=== PATIENT | male | born 1970 | race African-American/Black ===

== ENCOUNTER 2017-09-22 09:54 | Inpatient (IN) | payer MEDICARE, MEDICAID ==
[~2017-09-22] VITALS: Ht 170.2 cm; Wt 62.0 kg
[2017-09-22 10:49] LABS: BASOPHILS % (AUTO) 0.8 % (0.0-2.0); EOSINOPHILS % (AUTO) 2.6 % (1.0-6.0); HEMOGLOBIN 15.5 g/dL (13.5-17.5); LYMPHOCYTES # (AUTO) 1.8 K/uL (1.0-4.8); LYMPHOCYTES % (AUTO) 36.5 % (22.0-44.0); MEAN CORPUSCULAR HEMOGLOBIN 31.8 pg (26.0-34.0); MEAN CORPUSCULAR HGB CONC 34.6 G/dL (31.0-37.0); MEAN CORPUSCULAR VOLUME 92 fL (80-100); MONOCYTES # (AUTO) 0.4 K/uL (0.1-1.0); MONOCYTES % (AUTO) 8.4 % (2.0-9.0); NEUTROPHILS # (AUTO) 2.5 K/uL (1.8-7.7); NEUTROPHILS % (AUTO) 51.7 % (40.0-70.0); PLATELET COUNT (AUTO) 283 K/uL (150-450); RED BLOOD CELL COUNT(AUTO) 4.89 MIL/uL (4.50-5.90); RED CELL DISTRIBUTION WIDTH 13.2 % (11.5-14.5)
[2017-09-22 10:58] LABS: ANION GAP 7 mmol/L (8-16); CALCIUM, TOTAL 9.6 mg/dL (8.8-10.5); CARBON DIOXIDE 27 mmol/L (22-29); CHLORIDE 104 mmol/L (98-107); CREATININE 0.94 mg/dL (0.60-1.30); GLOMERULAR FILTR. RATE CALC > 60 mL/min (>60); GLUCOSE,RANDOM 96 mg/dL (70-110); SODIUM SERUM 138 mmol/L (136-145); UREA NITROGEN, BLOOD 15 mg/dL (7-18)
[2017-09-22 11:05] LABS: ALANINE AMINOTRANSFERASE 23 U/L (12-78); ALBUMIN 4.1 g/dL (3.4-5.0); ALKALINE PHOSPHATASE 127 U/L (46-116); ASPARTATE AMINOTRANSFERASE 20 U/L (15-37); BILIRUBIN,TOTAL 0.6 mg/dL (0.1-1.0); TOTAL PROTEIN, SERUM 7.6 g/dL (6.4-8.2)
[2017-09-22] MEDS ORDERED: DiphenhydrAMINE HCL 50 MG/ML VIAL IM ONE (11:15)
[2017-09-22] MEDS ORDERED: LORazepam 2 MG TABLET PO ONE (11:15)
[2017-09-22] MEDS ORDERED: HALOPERIDOL LACTATE 5 MG/ML VIAL IM ONE (11:15)
[2017-09-22] MEDS ORDERED: LORazepam 2 MG/ML VIAL IM ONE (11:15)
[2017-09-22] MEDS ORDERED: HALOPERIDOL 5 MG TABLET PO ONE (11:15)
[2017-09-22] MEDS ORDERED: DiphenhydrAMINE HCL 50 MG CAPSULE PO ONE (11:15)
[2017-09-22] MEDS ORDERED: ACETAMINOPHEN 325 MG TABLET PO PRN ×2 (13:30→21:00)
[2017-09-22] MEDS ORDERED: HALOPERIDOL 5 MG TABLET PO PRN (13:30)
[2017-09-22] MEDS ORDERED: LORazepam 2 MG TABLET PO PRN (13:30)
[2017-09-22] MEDS ORDERED: IBUPROFEN 400 MG TABLET PO PRN ×2 (13:30→21:00)
[2017-09-22] MEDS ORDERED: ZOLPIDEM TARTRATE 10 MG TABLET PO PRN (13:30)
[2017-09-22 15:28] LABS: AMPHET/METH SCREEN,URINE POSITIVE (NEGATIVE); BARBITURATE SCREEN, URINE NEGATIVE (NEGATIVE); BENZODIAZEPINES SCREEN,URINE NEGATIVE (NEGATIVE); CANNABINOID SCREEN,URINE POSITIVE (NEGATIVE); COCAINE SCREEN,URINE NEGATIVE (NEGATIVE); METHADONE SCREEN, URINE NEGATIVE (NEGATIVE); OPIATE SCREEN,URINE NEGATIVE (NEGATIVE)
[2017-09-22 15:32] LABS: PHENCYCLIDINE SCREEN,URINE NEGATIVE (NEGATIVE)
[2017-09-22 19:48] VITALS: BP 128/78
[2017-09-22 19:55] VITALS: BP 128/78
[2017-09-22] MEDS ORDERED: CloNIDine HCL 0.1 MG TABLET PO PRN (21:00)
[2017-09-22] MEDS ORDERED: MAGNESIUM HYDROXIDE SUSPENSION 30 ML UDCUP PO PRN (21:00)
[2017-09-22] MEDS ORDERED: ALBUTEROL SULFATE HFA 90 MCG/PUFF 8 GM INHALER IH PRN (21:00)
[2017-09-22] MEDS ORDERED: DOCUSATE SODIUM 100 MG CAPSULE PO PRN (21:00)
[2017-09-22] MEDS ORDERED: MAG HYDROX/AL HYDROX/SIMETH ES 30 ML SUSPENSION UDCUP PO PRN (21:00)
[2017-09-22] MEDS ORDERED: PETROLATUM,WHITE 71 GM JELLY TP PRN (21:00)
[2017-09-22] MEDS ORDERED: LOPERAMIDE HCL 2 MG CAPSULE PO PRN (21:00)
[2017-09-22] MEDS ORDERED: ONDANSETRON HCL 4 MG TABLET PO PRN (21:00)
[2017-09-23 07:19] LABS: HEMOGLOBIN A1C 5.6 % (4.5-6.2)
[2017-09-23 07:28] LABS: BASOPHILS % (AUTO) 1.5 % (0.0-2.0); EOSINOPHILS % (AUTO) 3.6 % (1.0-6.0); HEMATOCRIT 43.1 % (41-53); HEMOGLOBIN 15.1 g/dL (13.5-17.5); LYMPHOCYTES # (AUTO) 1.7 K/uL (1.0-4.8); LYMPHOCYTES % (AUTO) 37.2 % (22.0-44.0); MEAN CORPUSCULAR VOLUME 92 fL (80-100); MONOCYTES # (AUTO) 0.5 K/uL (0.1-1.0); MONOCYTES % (AUTO) 10.4 % (2.0-9.0); NEUTROPHILS # (AUTO) 2.2 K/uL (1.8-7.7); NEUTROPHILS % (AUTO) 47.3 % (40.0-70.0); PLATELET COUNT (AUTO) 241 K/uL (150-450); RED BLOOD CELL COUNT(AUTO) 4.71 MIL/uL (4.50-5.90)
[2017-09-23 08:13] LABS: ALANINE AMINOTRANSFERASE 22 U/L (12-78); ALBUMIN 3.6 g/dL (3.4-5.0); ALKALINE PHOSPHATASE 111 U/L (46-116); ANION GAP 4 mmol/L (8-16); ASPARTATE AMINOTRANSFERASE 16 U/L (15-37); BILIRUBIN,TOTAL 0.3 mg/dL (0.1-1.0); CALCIUM, TOTAL 9.4 mg/dL (8.8-10.5); CARBON DIOXIDE 29 mmol/L (22-29); CHLORIDE 102 mmol/L (98-107); CHOL/HDL RATIO 3.2 (4.2-7.3); CHOLESTEROL 178 mg/dL (131-200); CREATININE 0.98 mg/dL (0.60-1.30); GLOMERULAR FILTR. RATE CALC > 60 mL/min (>60); GLUCOSE,RANDOM 95 mg/dL (70-110); HDL CHOLESTEROL 55 mg/dL (40-60); LDL CHOL (CALC.) 110 mg/dL (0-130); POTASSIUM 4.6 mmol/L (3.5-5.1); SODIUM SERUM 135 mmol/L (136-145); TOTAL PROTEIN, SERUM 6.9 g/dL (6.4-8.2); TRIGLYCERIDES 66 mg/dL (15-150); UREA NITROGEN, BLOOD 17 mg/dL (7-18)
[2017-09-23 08:15] VITALS: BP 136/73
[2017-09-23] MEDS: NICOTINE 14 MG/24 HOUR PATCH TD SCH (09:00)
[2017-09-23 16:00] VITALS: BP 139/89
[2017-09-23] MEDS: LORazepam 2 MG TABLET PO PRN ×2 (16:43→21:13)
[2017-09-23] MEDS: HALOPERIDOL 5 MG TABLET PO PRN ×2 (16:43→21:13)
[2017-09-23] MEDS: OLANZapine 5 MG TABLET PO SCH (21:10)
[2017-09-23] MEDS: ZOLPIDEM TARTRATE 10 MG TABLET PO PRN (22:47)
[2017-09-24 02:38] VITALS: BP 128/78
[2017-09-24 08:24] VITALS: BP 116/86
[2017-09-24] MEDS: NICOTINE 14 MG/24 HOUR PATCH TD SCH (08:31)
[2017-09-24] MEDS: OLANZapine 5 MG TABLET PO SCH ×2 (08:31→20:11)
[2017-09-24] MEDS: LORazepam 2 MG TABLET PO PRN ×2 (08:31→15:05)
[2017-09-24] MEDS ORDERED: BENZ1TAB10 PO (13:02)
[2017-09-24] MEDS ORDERED: QUET100T PO (13:02)
[2017-09-24] MEDS ORDERED: LURA40 PO (13:02)
[2017-09-24] MEDS ORDERED: HALO10 PO (13:02)
[2017-09-24] MEDS ORDERED: METF500T6 PO (13:02)
[2017-09-24] MEDS ORDERED: QUET25TA PO (13:02)
[2017-09-24] MEDS ORDERED: PRAV40TA4 PO (13:02)
[2017-09-24] MEDS ORDERED: DIVA-78 PO (13:02)
[2017-09-24] MEDS ORDERED: FOLI1 PO (13:02)
[2017-09-24] MEDS ORDERED: LISI-662 PO (13:02)
[2017-09-24] MEDS ORDERED: DIPH25 PO (13:02)
[2017-09-24] MEDS: HALOPERIDOL 5 MG TABLET PO PRN (15:05)
[2017-09-24 16:00] VITALS: BP 135/83
[2017-09-25] MEDS: HALOPERIDOL 5 MG TABLET PO PRN ×4 (07:35→17:44)
[2017-09-25] MEDS: OLANZapine 5 MG TABLET PO SCH ×2 (07:35→20:06)
[2017-09-25] MEDS: LORazepam 2 MG TABLET PO PRN ×4 (07:35→17:44)
[2017-09-25] MEDS: NICOTINE 14 MG/24 HOUR PATCH TD SCH (07:37)
[2017-09-25 08:00] VITALS: BP 117/78
[2017-09-25] MEDS ORDERED: ARIP15TA2 PO (10:43)
[2017-09-25] MEDS: ARIPiprazole 15 MG TABLET PO SCH (11:24)
[2017-09-25] MEDS: DiphenhydrAMINE HCL 25 MG CAPSULE PO SCH ×2 (11:27→16:36)
[2017-09-25] MEDS: DIVALPROEX SODIUM 500 MG DR TABLET PO SCH ×2 (11:27→16:36)
[2017-09-25] MEDS: FOLIC ACID 1 MG TABLET PO SCH ×2 (11:27→16:36)
[2017-09-25] MEDS: BENZTROPINE MESYLATE 1 MG TABLET PO SCH (11:28)
[2017-09-25 16:00] VITALS: BP 107/77
[2017-09-25] MEDS: PRAVASTATIN SODIUM 40 MG TABLET PO SCH (20:06)
[2017-09-26] MEDS: HALOPERIDOL 5 MG TABLET PO PRN (04:27)
[2017-09-26] MEDS: LORazepam 2 MG TABLET PO PRN (04:27)
[2017-09-26] MEDS: ARIPiprazole 15 MG TABLET PO SCH (07:50)
[2017-09-26] MEDS: FOLIC ACID 1 MG TABLET PO SCH ×2 (07:50→16:36)
[2017-09-26] MEDS: BENZTROPINE MESYLATE 1 MG TABLET PO SCH (07:50)
[2017-09-26] MEDS: OLANZapine 5 MG TABLET PO SCH ×2 (07:50→20:14)
[2017-09-26] MEDS: DiphenhydrAMINE HCL 25 MG CAPSULE PO SCH ×2 (07:50→16:36)
[2017-09-26] MEDS: DIVALPROEX SODIUM 500 MG DR TABLET PO SCH ×2 (07:50→16:37)
[2017-09-26 08:43] VITALS: BP 128/96
[2017-09-26] MEDS: NICOTINE 14 MG/24 HOUR PATCH TD SCH (09:00)
[2017-09-26 17:02] VITALS: BP 107/82
[2017-09-26] MEDS: PRAVASTATIN SODIUM 40 MG TABLET PO SCH (21:57)
[2017-09-27] MEDS: ZOLPIDEM TARTRATE 10 MG TABLET PO PRN ×2 (01:50→20:09)
[2017-09-27] MEDS: LORazepam 2 MG TABLET PO PRN ×2 (01:50→15:59)
[2017-09-27 01:51] VITALS: BP 120/79
[2017-09-27 07:14] LABS: ANION GAP 7 mmol/L (8-16); CALCIUM, TOTAL 9.1 mg/dL (8.8-10.5); CARBON DIOXIDE 30 mmol/L (22-29); CHLORIDE 102 mmol/L (98-107); CREATININE 0.84 mg/dL (0.60-1.30); GLOMERULAR FILTR. RATE CALC > 60 mL/min (>60); GLUCOSE,RANDOM 83 mg/dL (70-110); POTASSIUM 4.4 mmol/L (3.5-5.1); SODIUM SERUM 139 mmol/L (136-145); UREA NITROGEN, BLOOD 16 mg/dL (7-18)
[2017-09-27 08:00] VITALS: BP 126/80
[2017-09-27] MEDS: NICOTINE 14 MG/24 HOUR PATCH TD SCH (09:00)
[2017-09-27] MEDS: OLANZapine 5 MG TABLET PO SCH ×2 (09:03→20:09)
[2017-09-27] MEDS: FOLIC ACID 1 MG TABLET PO SCH ×2 (09:03→16:09)
[2017-09-27] MEDS: BENZTROPINE MESYLATE 1 MG TABLET PO SCH (09:03)
[2017-09-27] MEDS: DiphenhydrAMINE HCL 25 MG CAPSULE PO SCH ×2 (09:03→16:09)
[2017-09-27] MEDS: DIVALPROEX SODIUM 500 MG DR TABLET PO SCH ×2 (09:03→16:09)
[2017-09-27] MEDS: ARIPiprazole 15 MG TABLET PO SCH (09:03)
[2017-09-27 16:00] VITALS: BP 123/86
[2017-09-27] MEDS: PRAVASTATIN SODIUM 40 MG TABLET PO SCH (20:10)
[2017-09-28 00:05] VITALS: BP 113/76
[2017-09-28 08:30] VITALS: BP 140/93
[2017-09-28] MEDS: ARIPiprazole 15 MG TABLET PO SCH (08:38)
[2017-09-28] MEDS: BENZTROPINE MESYLATE 1 MG TABLET PO SCH (08:39)
[2017-09-28] MEDS: DiphenhydrAMINE HCL 25 MG CAPSULE PO SCH ×2 (08:39→16:21)
[2017-09-28] MEDS: FOLIC ACID 1 MG TABLET PO SCH ×2 (08:39→16:21)
[2017-09-28] MEDS: OLANZapine 5 MG TABLET PO SCH ×2 (08:39→20:20)
[2017-09-28] MEDS: DIVALPROEX SODIUM 500 MG DR TABLET PO SCH ×2 (08:39→16:21)
[2017-09-28] MEDS: NICOTINE 14 MG/24 HOUR PATCH TD SCH (08:40)
[2017-09-28] MEDS: HALOPERIDOL 5 MG TABLET PO PRN (08:42)
[2017-09-28] MEDS: LORazepam 2 MG TABLET PO PRN ×2 (08:42→17:14)
[2017-09-28 19:35] VITALS: BP 138/89
[2017-09-28] MEDS: PRAVASTATIN SODIUM 40 MG TABLET PO SCH (20:20)
[2017-09-29 06:25] VITALS: BP 129/83
[2017-09-29] MEDS ORDERED: NICOTINE 14 MG/24 HOUR PATCH TD PRN (07:45)
[2017-09-29] MEDS: ARIPiprazole 15 MG TABLET PO SCH (08:43)
[2017-09-29] MEDS: OLANZapine 5 MG TABLET PO SCH ×2 (08:43→20:45)
[2017-09-29] MEDS: BENZTROPINE MESYLATE 1 MG TABLET PO SCH (08:43)
[2017-09-29] MEDS: DiphenhydrAMINE HCL 25 MG CAPSULE PO SCH ×2 (08:43→16:42)
[2017-09-29] MEDS: FOLIC ACID 1 MG TABLET PO SCH ×2 (08:43→16:42)
[2017-09-29] MEDS: DIVALPROEX SODIUM 500 MG DR TABLET PO SCH ×2 (08:43→16:42)
[2017-09-29 08:59] VITALS: BP 133/86
[2017-09-29] MEDS: LORazepam 2 MG TABLET PO PRN (18:04)
[2017-09-29] MEDS: PRAVASTATIN SODIUM 40 MG TABLET PO SCH (20:45)
[2017-09-29] MEDS: ZOLPIDEM TARTRATE 10 MG TABLET PO PRN (20:45)
[2017-09-30] MEDS: ARIPiprazole 15 MG TABLET PO SCH (08:08)
[2017-09-30] MEDS: BENZTROPINE MESYLATE 1 MG TABLET PO SCH (08:08)
[2017-09-30] MEDS: LORazepam 2 MG TABLET PO PRN (08:08)
[2017-09-30] MEDS: OLANZapine 5 MG TABLET PO SCH (08:08)
[2017-09-30] MEDS: DiphenhydrAMINE HCL 25 MG CAPSULE PO SCH (08:08)
[2017-09-30] MEDS: FOLIC ACID 1 MG TABLET PO SCH (08:08)
[2017-09-30] MEDS: DIVALPROEX SODIUM 500 MG DR TABLET PO SCH (08:08)
[2017-09-30 08:22] VITALS: BP 102/81
[2017-09-30] MEDS ORDERED: OLAN5TAB2 PO (11:08)
== END 2017-09-30 13:15 | disposition home or self-care (01) | DRG 885 ==
LOC: EMS 09:57 → 3EC 17:35 → 3EI 09-28 20:00 → 3EC 09-29 17:16
PROVIDERS: ADMIT Psychiatry & Neurology Child & Adolescent Psychiatry; ATTEND Psychiatry & Neurology Child & Adolescent Psychiatry
DX: F20.0 Paranoid schizophrenia (principal); E87.1 Hypo-osmolality and hyponatremia; F17.210 Nicotine dependence, cigarettes, uncomplicated; F10.10 Alcohol abuse, uncomplicated; E78.5 Hyperlipidemia, unspecified; E11.9 Type 2 diabetes mellitus without complications; F19.10 Other psychoactive substance abuse, uncomplicated; F15.90 Other stimulant use, unspecified, uncomplicated; F12.90 Cannabis use, unspecified, uncomplicated; Z71.41 Alcohol abuse counseling and surveillance of alcoholic; Z71.6 Tobacco abuse counseling; Z71.51 Drug abuse counseling and surveillance of drug abuser
CPT/HCPCS: 83036; 84443; 99285; G0480; J1200; J1630; J2060

== ENCOUNTER 2018-01-21 13:46 | Inpatient (IN) | payer MEDICARE ==
[~2018-01-21] VITALS: Ht 165.1 cm; Wt 64.4 kg
[~2018-01-21 13:46] MED LIST: ARIP15TA2 PO; BENZ1TAB10 PO; DIPH25 PO; DIVA-78 PO; FOLI1 PO; OLAN5TAB2 PO; PRAV40TA4 PO
[2018-01-21 17:39] LABS: GLUCOMETER DEV NAME(LOC) BV2N3; GLUCOSE,POINT OF CARE 128 MG/DL (70-110)
[2018-01-21 17:45] VITALS: BP 119/72
[2018-01-21] MEDS ORDERED: ZOLPIDEM TARTRATE 10 MG TABLET PO PRN (17:45)
[2018-01-21] MEDS ORDERED: IBUPROFEN 400 MG TABLET PO PRN (19:15)
[2018-01-21] MEDS ORDERED: DOCUSATE SODIUM 100 MG CAPSULE PO PRN (19:15)
[2018-01-21] MEDS ORDERED: ONDANSETRON HCL 4 MG TABLET PO PRN (19:15)
[2018-01-21] MEDS ORDERED: MAGNESIUM HYDROXIDE SUSPENSION 30 ML UDCUP PO PRN (19:15)
[2018-01-21] MEDS ORDERED: MAG HYDROX/AL HYDROX/SIMETH ES 30 ML SUSPENSION UDCUP PO PRN (19:15)
[2018-01-21] MEDS ORDERED: ACETAMINOPHEN 325 MG TABLET PO PRN (19:15)
[2018-01-21] MEDS ORDERED: NICOTINE 14 MG/24 HOUR PATCH TD PRN (19:15)
[2018-01-21] MEDS ORDERED: ALBUTEROL SULFATE HFA 90 MCG/PUFF 8 GM INHALER IH PRN (19:15)
[2018-01-21] MEDS ORDERED: LOPERAMIDE HCL 2 MG CAPSULE PO PRN (19:15)
[2018-01-21] MEDS ORDERED: CloNIDine HCL 0.1 MG TABLET PO PRN (19:15)
[2018-01-21] MEDS ORDERED: GuaiFENesin/D-METHORPHAN [SUGAR-FREE] 200-20MG/10 ML SYRUP UDCUP PO PRN (19:15)
[2018-01-21] MEDS ORDERED: PETROLATUM,WHITE 71 GM JELLY TP PRN (19:15)
[2018-01-22 01:18] VITALS: BP 110/92
[2018-01-22 08:34] LABS: BASOPHILS % (AUTO) 1.2 % (0.0-2.0); EOSINOPHILS % (AUTO) 4.4 % (1.0-6.0); HEMATOCRIT 45.6 % (41-53); HEMOGLOBIN 15.4 g/dL (13.5-17.5); LYMPHOCYTES # (AUTO) 1.8 K/uL (1.0-4.8); LYMPHOCYTES % (AUTO) 33.1 % (22.0-44.0); MEAN CORPUSCULAR HEMOGLOBIN 32.1 pg (26.0-34.0); MEAN CORPUSCULAR HGB CONC 33.7 G/dL (31.0-37.0); MEAN CORPUSCULAR VOLUME 95 fL (80-100); MONOCYTES # (AUTO) 0.6 K/uL (0.1-1.0); MONOCYTES % (AUTO) 11.9 % (2.0-9.0); NEUTROPHILS # (AUTO) 2.6 K/uL (1.8-7.7); NEUTROPHILS % (AUTO) 49.4 % (40.0-70.0); PLATELET COUNT (AUTO) 307 K/uL (150-450); RED CELL DISTRIBUTION WIDTH 12.9 % (11.5-14.5)
[2018-01-22 09:02] LABS: ALANINE AMINOTRANSFERASE 47 U/L (12-78); ALBUMIN 3.7 g/dL (3.4-5.0); ALKALINE PHOSPHATASE 108 U/L (46-116); ANION GAP 4 mmol/L (8-16); ASPARTATE AMINOTRANSFERASE 21 U/L (15-37); BILIRUBIN,TOTAL 0.3 mg/dL (0.1-1.0); CALCIUM, TOTAL 8.6 mg/dL (8.8-10.5); CARBON DIOXIDE 34 mmol/L (22-29); CHLORIDE 103 mmol/L (98-107); CHOL/HDL RATIO 2.4 (4.2-7.3); CHOLESTEROL 135 mg/dL (131-200); FREE T4 (FREE THYROXINE) 0.76 ng/dL (0.76-1.46); GLOMERULAR FILTR. RATE CALC > 60 mL/min (>60); GLUCOSE,RANDOM 67 mg/dL (70-110); HDL CHOLESTEROL 56 mg/dL (40-60); LDL CHOL (CALC.) 61 mg/dL (0-130); POTASSIUM 4.5 mmol/L (3.5-5.1); SODIUM SERUM 141 mmol/L (136-145); THYROID STIMULATING HORMONE 0.59 uIU/mL (0.36-3.74); TOTAL PROTEIN, SERUM 6.8 g/dL (6.4-8.2); TRIGLYCERIDES 90 mg/dL (15-150); UREA NITROGEN, BLOOD 14 mg/dL (7-18)
[2018-01-22 10:09] VITALS: BP 131/80
[2018-01-22] MEDS: OLANZapine 5 MG TABLET PO SCH ×2 (12:00→21:00)
[2018-01-22] MEDS: BENZTROPINE MESYLATE 1 MG TABLET PO SCH ×2 (12:00→21:00)
[2018-01-22] MEDS: DIVALPROEX SODIUM 500 MG DR TABLET PO SCH ×2 (12:00→21:01)
[2018-01-22 16:34] VITALS: BP 124/76
[2018-01-23 00:30] VITALS: BP 102/62
[2018-01-23 08:39] VITALS: BP 127/86
[2018-01-23] MEDS: DIVALPROEX SODIUM 500 MG DR TABLET PO SCH ×2 (08:43→20:31)
[2018-01-23] MEDS: BENZTROPINE MESYLATE 1 MG TABLET PO SCH ×2 (08:43→20:31)
[2018-01-23] MEDS: OLANZapine 5 MG TABLET PO SCH ×2 (08:43→20:31)
[2018-01-23] MEDS: LORazepam 2 MG TABLET PO PRN (11:48)
[2018-01-23] MEDS: HALOPERIDOL 5 MG TABLET PO PRN (12:44)
[2018-01-23 16:00] VITALS: BP 138/78
[2018-01-24 05:27] VITALS: BP 130/80
[2018-01-24] MEDS: HALOPERIDOL 5 MG TABLET PO PRN (06:08)
[2018-01-24 08:46] VITALS: BP 109/69
[2018-01-24] MEDS: OLANZapine 5 MG TABLET PO SCH ×2 (09:41→20:42)
[2018-01-24] MEDS: BENZTROPINE MESYLATE 1 MG TABLET PO SCH ×2 (09:41→20:42)
[2018-01-24] MEDS: DIVALPROEX SODIUM 500 MG DR TABLET PO SCH ×2 (09:41→20:42)
[2018-01-24] MEDS: LORazepam 2 MG TABLET PO PRN (14:42)
[2018-01-24 16:23] VITALS: BP 113/74
[2018-01-25] VITALS: BP 107/66
[2018-01-25 08:22] VITALS: BP 112/68
[2018-01-25] MEDS: OLANZapine 5 MG TABLET PO SCH ×2 (08:28→20:16)
[2018-01-25] MEDS: DIVALPROEX SODIUM 500 MG DR TABLET PO SCH ×2 (08:28→20:16)
[2018-01-25] MEDS: LORazepam 2 MG TABLET PO PRN ×2 (08:28→20:46)
[2018-01-25] MEDS: BENZTROPINE MESYLATE 1 MG TABLET PO SCH ×2 (08:28→20:15)
[2018-01-25 16:12] VITALS: BP 122/76
[2018-01-26 01:24] VITALS: BP 114/86
[2018-01-26] MEDS: OLANZapine 5 MG TABLET PO SCH ×2 (08:23→21:00)
[2018-01-26] MEDS: BENZTROPINE MESYLATE 1 MG TABLET PO SCH ×2 (08:24→20:59)
[2018-01-26] MEDS: DIVALPROEX SODIUM 500 MG DR TABLET PO SCH ×2 (08:24→20:59)
[2018-01-26 08:40] VITALS: BP 105/75
[2018-01-26 17:11] VITALS: BP 125/90
[2018-01-27 01:16] VITALS: BP 121/68
[2018-01-27] MEDS: LORazepam 2 MG TABLET PO PRN (04:58)
[2018-01-27] MEDS: HALOPERIDOL 5 MG TABLET PO PRN (04:58)
[2018-01-27] MEDS: DIVALPROEX SODIUM 500 MG DR TABLET PO SCH (09:33)
[2018-01-27] MEDS: OLANZapine 5 MG TABLET PO SCH (09:33)
[2018-01-27] MEDS: BENZTROPINE MESYLATE 1 MG TABLET PO SCH (09:33)
[2018-01-27 09:59] VITALS: BP 107/74
[2018-01-27 16:05] VITALS: BP 119/75
== END 2018-01-27 17:15 | disposition home or self-care (01) | DRG 885 ==
LOC: B2X 16:00
DX: F25.1 Schizoaffective disorder, depressive type (principal); E11.9 Type 2 diabetes mellitus without complications; E78.00 Pure hypercholesterolemia, unspecified; E78.5 Hyperlipidemia, unspecified; F10.10 Alcohol abuse, uncomplicated; F12.10 Cannabis abuse, uncomplicated; F15.10 Other stimulant abuse, uncomplicated; F17.200 Nicotine dependence, unspecified, uncomplicated; F41.9 Anxiety disorder, unspecified; G47.00 Insomnia, unspecified; I10 Essential (primary) hypertension; Z79.899 Other long term (current) drug therapy; Z91.5 Personal history of self-harm; Z71.51 Drug abuse counseling and surveillance of drug abuser; Z71.41 Alcohol abuse counseling and surveillance of alcoholic; Z71.6 Tobacco abuse counseling
CPT/HCPCS: 83036; 84439; 84443

== ENCOUNTER 2018-03-02 16:04 | Inpatient (IN) | payer MEDICARE ==
[~2018-03-02] VITALS: Ht 170.2 cm; Wt 69.6 kg
[~2018-03-02 16:04] MED LIST changes: -ARIP15TA2 PO; -DIPH25 PO; -FOLI1 PO; -PRAV40TA4 PO
[2018-03-02] MEDS ORDERED: ZOLPIDEM TARTRATE 10 MG TABLET PO PRN (16:45)
[2018-03-02] MEDS ORDERED: HALOPERIDOL 5 MG TABLET PO PRN (16:45)
[2018-03-02 17:04] VITALS: BP 116/75
[2018-03-02 17:58] VITALS: BP 120/72
[2018-03-02 18:29] LABS: GLUCOMETER DEV NAME(LOC) BV2S.; GLUCOSE,POINT OF CARE 112 MG/DL (70-110)
[2018-03-02] MEDS ORDERED: GLUCAGON,HUMAN RECOMBINANT 1 MG VIAL IM PRN (18:45)
[2018-03-02] MEDS ORDERED: MAG HYDROX/AL HYDROX/SIMETH ES 30 ML SUSPENSION UDCUP PO PRN (22:15)
[2018-03-02] MEDS ORDERED: PETROLATUM,WHITE 71 GM JELLY TP PRN (22:15)
[2018-03-02] MEDS ORDERED: MAGNESIUM HYDROXIDE SUSPENSION 30 ML UDCUP PO PRN (22:15)
[2018-03-02] MEDS ORDERED: CloNIDine HCL 0.1 MG TABLET PO PRN (22:15)
[2018-03-02] MEDS ORDERED: ALBUTEROL SULFATE HFA 90 MCG/PUFF 8 GM INHALER IH PRN (22:15)
[2018-03-02] MEDS ORDERED: BENZOCAINE/MENTHOL LOZENGE MM PRN (22:15)
[2018-03-02] MEDS ORDERED: BACITRACIN 28.4 GM OINTMENT TP PRN (22:15)
[2018-03-02] MEDS ORDERED: ACETAMINOPHEN 325 MG TABLET PO PRN (22:15)
[2018-03-02] MEDS ORDERED: IBUPROFEN 600 MG TABLET PO PRN (22:15)
[2018-03-02] MEDS ORDERED: LOPERAMIDE HCL 2 MG CAPSULE PO PRN (22:15)
[2018-03-02] MEDS ORDERED: ONDANSETRON HCL 4 MG TABLET PO PRN (22:15)
[2018-03-03 03:36] VITALS: BP 122/79
[2018-03-03 06:29] LABS: GLUCOMETER DEV NAME(LOC) BV2S.; GLUCOSE,POINT OF CARE 83 MG/DL (70-110)
[2018-03-03 08:25] VITALS: BP 103/61
[2018-03-03 08:30] LABS: BASOPHILS % (AUTO) 0.8 % (0.0-2.0); EOSINOPHILS % (AUTO) 3.5 % (1.0-6.0); HEMOGLOBIN 14.7 g/dL (13.5-17.5); LYMPHOCYTES # (AUTO) 1.9 K/uL (1.0-4.8); LYMPHOCYTES % (AUTO) 33.9 % (22.0-44.0); MEAN CORPUSCULAR HEMOGLOBIN 32.3 pg (26.0-34.0); MEAN CORPUSCULAR HGB CONC 34.2 G/dL (31.0-37.0); MEAN CORPUSCULAR VOLUME 94 fL (80-100); MONOCYTES # (AUTO) 0.7 K/uL (0.1-1.0); MONOCYTES % (AUTO) 12.1 % (2.0-9.0); NEUTROPHILS # (AUTO) 2.8 K/uL (1.8-7.7); NEUTROPHILS % (AUTO) 49.7 % (40.0-70.0); PLATELET COUNT (AUTO) 281 K/uL (150-450); RED BLOOD CELL COUNT(AUTO) 4.55 MIL/uL (4.50-5.90); RED CELL DISTRIBUTION WIDTH 13.9 % (11.5-14.5)
[2018-03-03 08:37] LABS: HEMOGLOBIN A1C 6.1 % (4.5-6.2)
[2018-03-03] MEDS: OMEPRAZOLE 20 MG CAPSULE PO SCH (08:44)
[2018-03-03] MEDS: DOCUSATE SODIUM 100 MG CAPSULE PO SCH (08:44)
[2018-03-03 09:01] LABS: ALANINE AMINOTRANSFERASE 48 U/L (12-78); ALBUMIN 3.5 g/dL (3.4-5.0); ALKALINE PHOSPHATASE 103 U/L (46-116); ANION GAP 4 mmol/L (8-16); ASPARTATE AMINOTRANSFERASE 20 U/L (15-37); BILIRUBIN,TOTAL 0.2 mg/dL (0.1-1.0); CALCIUM, TOTAL 9.2 mg/dL (8.8-10.5); CARBON DIOXIDE 32 mmol/L (22-29); CHLORIDE 105 mmol/L (98-107); CHOL/HDL RATIO 3.5 (4.2-7.3); CHOLESTEROL 207 mg/dL (131-200); CREATININE 0.76 mg/dL (0.60-1.30); FREE T4 (FREE THYROXINE) 0.69 ng/dL (0.76-1.46); GLOMERULAR FILTR. RATE CALC > 60 mL/min (>60); GLUCOSE,RANDOM 86 mg/dL (70-110); HDL CHOLESTEROL 60 mg/dL (40-60); LDL CHOL (CALC.) 136 mg/dL (0-130); POTASSIUM 4.7 mmol/L (3.5-5.1); SODIUM SERUM 141 mmol/L (136-145); THYROID STIMULATING HORMONE 0.95 uIU/mL (0.36-3.74); TOTAL PROTEIN, SERUM 6.3 g/dL (6.4-8.2); TRIGLYCERIDES 53 mg/dL (15-150); UREA NITROGEN, BLOOD 12 mg/dL (7-18)
[2018-03-03 13:05] LABS: GLUCOMETER DEV NAME(LOC) BV2S.; GLUCOSE,POINT OF CARE 87 MG/DL (70-110)
[2018-03-03 16:00] VITALS: BP 119/71
[2018-03-03 16:54] LABS: GLUCOMETER DEV NAME(LOC) BV2S.; GLUCOSE,POINT OF CARE 86 MG/DL (70-110)
[2018-03-03] MEDS: DIVALPROEX SODIUM 500 MG DR TABLET PO SCH (20:47)
[2018-03-03] MEDS: OLANZapine 7.5 MG TABLET PO SCH (20:47)
[2018-03-03 21:10] LABS: GLUCOMETER DEV NAME(LOC) BV2S.; GLUCOSE,POINT OF CARE 119 MG/DL (70-110)
[2018-03-04 01:02] VITALS: BP 111/70
[2018-03-04 06:49] LABS: GLUCOMETER DEV NAME(LOC) BV2S.; GLUCOSE,POINT OF CARE 82 MG/DL (70-110)
[2018-03-04 08:13] VITALS: BP 115/65
[2018-03-04] MEDS: OMEPRAZOLE 20 MG CAPSULE PO SCH (08:22)
[2018-03-04] MEDS: DIVALPROEX SODIUM 500 MG DR TABLET PO SCH ×2 (08:22→20:36)
[2018-03-04] MEDS: OLANZapine 7.5 MG TABLET PO SCH ×2 (08:22→20:37)
[2018-03-04] MEDS: DOCUSATE SODIUM 100 MG CAPSULE PO SCH (08:22)
[2018-03-04 11:09] LABS: GLUCOMETER DEV NAME(LOC) BV2S.; GLUCOSE,POINT OF CARE 82 MG/DL (70-110)
[2018-03-04 16:06] VITALS: BP 113/74
[2018-03-04 16:40] LABS: GLUCOMETER DEV NAME(LOC) BV2S.; GLUCOSE,POINT OF CARE 140 MG/DL (70-110)
[2018-03-04 20:55] LABS: GLUCOMETER DEV NAME(LOC) BV2S.; GLUCOSE,POINT OF CARE 87 MG/DL (70-110)
[2018-03-05 00:25] VITALS: BP 120/68
[2018-03-05 08:20] VITALS: BP 101/61
[2018-03-05] MEDS: OLANZapine 7.5 MG TABLET PO SCH ×2 (08:25→20:30)
[2018-03-05] MEDS: OMEPRAZOLE 20 MG CAPSULE PO SCH (08:25)
[2018-03-05] MEDS: DIVALPROEX SODIUM 500 MG DR TABLET PO SCH ×2 (08:25→20:30)
[2018-03-05] MEDS: DOCUSATE SODIUM 100 MG CAPSULE PO SCH (08:25)
[2018-03-05 16:07] VITALS: BP 118/62
[2018-03-05 16:44] LABS: GLUCOMETER DEV NAME(LOC) BV2S.; GLUCOSE,POINT OF CARE 110 MG/DL (70-110)
[2018-03-05] MEDS: LORazepam 2 MG TABLET PO PRN (16:46)
[2018-03-05] MEDS: INSULIN LISPRO 100 UNITS/ML SQ PRN (20:37)
[2018-03-05 20:53] LABS: GLUCOMETER DEV NAME(LOC) BV2S.; GLUCOSE,POINT OF CARE 148 MG/DL (70-110)
[2018-03-06 05:09] VITALS: BP 114/60
[2018-03-06 06:54] LABS: GLUCOMETER DEV NAME(LOC) BV2S.; GLUCOSE,POINT OF CARE 85 MG/DL (70-110)
[2018-03-06 08:06] VITALS: BP 139/84
[2018-03-06] MEDS: OLANZapine 7.5 MG TABLET PO SCH ×2 (08:45→20:34)
[2018-03-06] MEDS: DIVALPROEX SODIUM 500 MG DR TABLET PO SCH ×2 (08:45→20:34)
[2018-03-06] MEDS: DOCUSATE SODIUM 100 MG CAPSULE PO SCH (08:45)
[2018-03-06] MEDS: OMEPRAZOLE 20 MG CAPSULE PO SCH (08:45)
[2018-03-06] MEDS: INSULIN LISPRO 100 UNITS/ML SQ PRN ×2 (11:02→16:39)
[2018-03-06 11:44] LABS: GLUCOMETER DEV NAME(LOC) BV2S.; GLUCOSE,POINT OF CARE 141 MG/DL (70-110)
[2018-03-06 16:00] VITALS: BP 125/80
[2018-03-06 16:14] LABS: GLUCOMETER DEV NAME(LOC) BV2S.; GLUCOSE,POINT OF CARE 176 MG/DL (70-110)
[2018-03-06 20:23] LABS: GLUCOMETER DEV NAME(LOC) BV2S.; GLUCOSE,POINT OF CARE 138 MG/DL (70-110)
[2018-03-07 05:42] VITALS: BP 121/68
[2018-03-07 06:24] LABS: GLUCOMETER DEV NAME(LOC) BV2S.; GLUCOSE,POINT OF CARE 86 MG/DL (70-110)
[2018-03-07] MEDS: OLANZapine 7.5 MG TABLET PO SCH ×2 (08:11→20:31)
[2018-03-07] MEDS: DIVALPROEX SODIUM 500 MG DR TABLET PO SCH ×2 (08:11→20:31)
[2018-03-07] MEDS: DOCUSATE SODIUM 100 MG CAPSULE PO SCH (08:11)
[2018-03-07] MEDS: OMEPRAZOLE 20 MG CAPSULE PO SCH (08:11)
[2018-03-07 08:24] VITALS: BP 115/66
[2018-03-07] MEDS: LORazepam 2 MG TABLET PO PRN (09:05)
[2018-03-07 11:00] LABS: GLUCOMETER DEV NAME(LOC) BV2S.; GLUCOSE,POINT OF CARE 118 MG/DL (70-110)
[2018-03-07 16:14] VITALS: BP 118/82
[2018-03-07 16:19] LABS: GLUCOMETER DEV NAME(LOC) BV2S.; GLUCOSE,POINT OF CARE 184 MG/DL (70-110)
[2018-03-07] MEDS: INSULIN LISPRO 100 UNITS/ML SQ PRN ×2 (16:38→20:37)
[2018-03-07 20:33] LABS: GLUCOMETER DEV NAME(LOC) BV2S.; GLUCOSE,POINT OF CARE 187 MG/DL (70-110)
[2018-03-08 01:09] VITALS: BP 119/76
[2018-03-08 05:45] LABS: GLUCOMETER DEV NAME(LOC) BV2S.; GLUCOSE,POINT OF CARE 120 MG/DL (70-110)
[2018-03-08] MEDS: DOCUSATE SODIUM 100 MG CAPSULE PO SCH (08:14)
[2018-03-08] MEDS: OMEPRAZOLE 20 MG CAPSULE PO SCH (08:14)
[2018-03-08] MEDS: DIVALPROEX SODIUM 500 MG DR TABLET PO SCH ×2 (08:14→20:30)
[2018-03-08] MEDS: OLANZapine 7.5 MG TABLET PO SCH ×2 (08:14→20:30)
[2018-03-08 08:16] VITALS: BP 124/82
[2018-03-08] MEDS: LORazepam 2 MG TABLET PO PRN (10:46)
[2018-03-08] MEDS: INSULIN LISPRO 100 UNITS/ML SQ PRN ×3 (10:51→20:47)
[2018-03-08 11:10] LABS: GLUCOMETER DEV NAME(LOC) BV2S.; GLUCOSE,POINT OF CARE 178 MG/DL (70-110)
[2018-03-08 16:04] VITALS: BP 126/88
[2018-03-08 16:14] LABS: GLUCOMETER DEV NAME(LOC) BV2S.; GLUCOSE,POINT OF CARE 246 MG/DL (70-110)
[2018-03-08 20:09] LABS: GLUCOMETER DEV NAME(LOC) BV2S.; GLUCOSE,POINT OF CARE 257 MG/DL (70-110)
[2018-03-09 01:30] VITALS: BP 121/70
[2018-03-09 06:19] LABS: GLUCOMETER DEV NAME(LOC) BV2S.; GLUCOSE,POINT OF CARE 103 MG/DL (70-110)
[2018-03-09 08:18] VITALS: BP 132/90
[2018-03-09] MEDS: DOCUSATE SODIUM 100 MG CAPSULE PO SCH (08:43)
[2018-03-09] MEDS: OLANZapine 7.5 MG TABLET PO SCH ×2 (08:43→20:33)
[2018-03-09] MEDS: OMEPRAZOLE 20 MG CAPSULE PO SCH (08:43)
[2018-03-09] MEDS: DIVALPROEX SODIUM 500 MG DR TABLET PO SCH ×2 (08:43→20:33)
[2018-03-09 10:05] LABS: APPEARANCE,URINE CLEAR (CLEAR); BILIRUBIN,URINE NEGATIVE (NEGATIVE); GLUCOSE, URINE (UA) NEGATIVE (NEGATIVE); KETONES,URINE NEGATIVE (NEGATIVE); LEUKOCYTE ESTERASE ,URINE NEGATIVE (NEGATIVE); NITRATE,URINE NEGATIVE (NEGATIVE); OCCULT BLOOD,URINE NEGATIVE (NEGATIVE); PROTEIN,URINE NEGATIVE (NEGATIVE); UROBILINOGEN,URINE 0.2 mg/dL (<=1.0)
[2018-03-09] MEDS: INSULIN LISPRO 100 UNITS/ML SQ PRN ×3 (10:58→20:51)
[2018-03-09 11:04] LABS: GLUCOMETER DEV NAME(LOC) BV2S.; GLUCOSE,POINT OF CARE 154 MG/DL (70-110)
[2018-03-09] MEDS: LORazepam 2 MG TABLET PO PRN (11:59)
[2018-03-09 16:08] VITALS: BP 123/67
[2018-03-09 16:16] LABS: GLUCOMETER DEV NAME(LOC) BV2S.; GLUCOSE,POINT OF CARE 185 MG/DL (70-110)
[2018-03-09 20:29] LABS: GLUCOMETER DEV NAME(LOC) BV2S.; GLUCOSE,POINT OF CARE 174 MG/DL (70-110)
[2018-03-10 00:01] VITALS: BP 101/60
[2018-03-10 06:20] LABS: GLUCOMETER DEV NAME(LOC) BV2S.; GLUCOSE,POINT OF CARE 208 MG/DL (70-110)
[2018-03-10] MEDS: INSULIN LISPRO 100 UNITS/ML SQ PRN ×3 (07:14→20:48)
[2018-03-10 08:13] VITALS: BP 123/61
[2018-03-10] MEDS: LORazepam 2 MG TABLET PO PRN (08:21)
[2018-03-10] MEDS: OMEPRAZOLE 20 MG CAPSULE PO SCH (08:21)
[2018-03-10] MEDS: DIVALPROEX SODIUM 500 MG DR TABLET PO SCH ×2 (08:21→20:39)
[2018-03-10] MEDS: OLANZapine 7.5 MG TABLET PO SCH ×2 (08:21→20:39)
[2018-03-10] MEDS: DOCUSATE SODIUM 100 MG CAPSULE PO SCH (08:21)
[2018-03-10 11:03] LABS: GLUCOMETER DEV NAME(LOC) BV2S.; GLUCOSE,POINT OF CARE 205 MG/DL (70-110)
[2018-03-10 16:09] LABS: GLUCOMETER DEV NAME(LOC) BV2S.; GLUCOSE,POINT OF CARE 138 MG/DL (70-110)
[2018-03-10 16:10] VITALS: BP 123/83
[2018-03-10 20:34] LABS: GLUCOMETER DEV NAME(LOC) BV2S.; GLUCOSE,POINT OF CARE 177 MG/DL (70-110)
[2018-03-11 00:30] VITALS: BP 114/72
[2018-03-11 06:10] LABS: GLUCOMETER DEV NAME(LOC) BV2S.; GLUCOSE,POINT OF CARE 153 MG/DL (70-110)
[2018-03-11] MEDS: INSULIN LISPRO 100 UNITS/ML SQ PRN ×3 (06:50→16:30)
[2018-03-11] MEDS: DOCUSATE SODIUM 100 MG CAPSULE PO SCH (08:05)
[2018-03-11] MEDS: DIVALPROEX SODIUM 500 MG DR TABLET PO SCH ×2 (08:05→20:46)
[2018-03-11] MEDS: OMEPRAZOLE 20 MG CAPSULE PO SCH (08:05)
[2018-03-11] MEDS: LORazepam 2 MG TABLET PO PRN (08:05)
[2018-03-11] MEDS: OLANZapine 7.5 MG TABLET PO SCH ×2 (08:05→20:46)
[2018-03-11 08:39] VITALS: BP 124/80
[2018-03-11 11:24] LABS: GLUCOMETER DEV NAME(LOC) BV2S.; GLUCOSE,POINT OF CARE 200 MG/DL (70-110)
[2018-03-11 16:08] VITALS: BP 108/77
[2018-03-11 17:04] LABS: GLUCOMETER DEV NAME(LOC) BV2S.; GLUCOSE,POINT OF CARE 180 MG/DL (70-110)
[2018-03-11 21:19] LABS: GLUCOMETER DEV NAME(LOC) BV2S.; GLUCOSE,POINT OF CARE 118 MG/DL (70-110)
[2018-03-12 04:22] VITALS: BP 114/88
[2018-03-12 06:00] LABS: GLUCOMETER DEV NAME(LOC) BV2S.; GLUCOSE,POINT OF CARE 98 MG/DL (70-110)
[2018-03-12 08:09] VITALS: BP 128/88
[2018-03-12] MEDS: OLANZapine 7.5 MG TABLET PO SCH ×2 (08:39→20:35)
[2018-03-12] MEDS: DOCUSATE SODIUM 100 MG CAPSULE PO SCH (08:39)
[2018-03-12] MEDS: DIVALPROEX SODIUM 500 MG DR TABLET PO SCH ×2 (08:39→20:35)
[2018-03-12] MEDS: OMEPRAZOLE 20 MG CAPSULE PO SCH (08:39)
[2018-03-12 11:04] LABS: GLUCOMETER DEV NAME(LOC) BV2S.; GLUCOSE,POINT OF CARE 82 MG/DL (70-110)
[2018-03-12 16:12] VITALS: BP 103/82
[2018-03-12] MEDS: INSULIN LISPRO 100 UNITS/ML SQ PRN ×2 (16:37→20:48)
[2018-03-12 16:44] LABS: GLUCOMETER DEV NAME(LOC) BV2S.; GLUCOSE,POINT OF CARE 176 MG/DL (70-110)
[2018-03-12 21:04] LABS: GLUCOMETER DEV NAME(LOC) BV2S.; GLUCOSE,POINT OF CARE 201 MG/DL (70-110)
[2018-03-13 01:23] VITALS: BP 120/75
[2018-03-13 05:54] LABS: GLUCOMETER DEV NAME(LOC) BV2S.; GLUCOSE,POINT OF CARE 91 MG/DL (70-110)
[2018-03-13 08:17] VITALS: BP 118/76
[2018-03-13] MEDS: OMEPRAZOLE 20 MG CAPSULE PO SCH (08:40)
[2018-03-13] MEDS: OLANZapine 7.5 MG TABLET PO SCH ×2 (08:40→20:29)
[2018-03-13] MEDS: DIVALPROEX SODIUM 500 MG DR TABLET PO SCH ×2 (08:40→20:29)
[2018-03-13] MEDS: DOCUSATE SODIUM 100 MG CAPSULE PO SCH (08:40)
[2018-03-13 12:35] LABS: GLUCOMETER DEV NAME(LOC) BV2S.; GLUCOSE,POINT OF CARE 121 MG/DL (70-110)
[2018-03-13 16:16] VITALS: BP 104/62
[2018-03-13] MEDS: MetFORMIN HCL 500 MG TABLET PO SCH (16:16)
[2018-03-13] MEDS: INSULIN LISPRO 100 UNITS/ML SQ PRN (17:00)
[2018-03-14 04:32] VITALS: BP 111/73
[2018-03-14] MEDS: MetFORMIN HCL 500 MG TABLET PO SCH ×2 (06:58→16:25)
[2018-03-14 08:25] VITALS: BP 122/81
[2018-03-14] MEDS: OMEPRAZOLE 20 MG CAPSULE PO SCH (08:49)
[2018-03-14] MEDS: OLANZapine 7.5 MG TABLET PO SCH ×2 (08:49→20:27)
[2018-03-14] MEDS: DIVALPROEX SODIUM 500 MG DR TABLET PO SCH ×2 (08:49→20:26)
[2018-03-14] MEDS: DOCUSATE SODIUM 100 MG CAPSULE PO SCH (08:49)
[2018-03-14 13:59] LABS: GLUCOMETER DEV NAME(LOC) BV2S.; GLUCOSE,POINT OF CARE 153 MG/DL (70-110)
[2018-03-14 14:00] LABS: GLUCOMETER DEV NAME(LOC) BV2S.; GLUCOSE,POINT OF CARE 124 MG/DL (70-110)
[2018-03-14 14:01] LABS: GLUCOMETER DEV NAME(LOC) BV2S.; GLUCOSE,POINT OF CARE 103 MG/DL (70-110)
[2018-03-14 14:02] LABS: GLUCOMETER DEV NAME(LOC) BV2S.; GLUCOSE,POINT OF CARE 107 MG/DL (70-110)
[2018-03-14 16:09] VITALS: BP 125/65
[2018-03-14 16:14] LABS: GLUCOMETER DEV NAME(LOC) BV2S.; GLUCOSE,POINT OF CARE 102 MG/DL (70-110)
[2018-03-14] MEDS: INSULIN LISPRO 100 UNITS/ML SQ PRN (20:11)
[2018-03-15 00:09] VITALS: BP 128/72
[2018-03-15] MEDS: MetFORMIN HCL 500 MG TABLET PO SCH ×2 (06:27→16:18)
[2018-03-15 08:39] VITALS: BP 110/66
[2018-03-15 08:52] LABS: GLUCOMETER DEV NAME(LOC) BV2S.; GLUCOSE,POINT OF CARE 115 MG/DL (70-110)
[2018-03-15] MEDS: OLANZapine 7.5 MG TABLET PO SCH ×2 (08:52→21:04)
[2018-03-15] MEDS: DIVALPROEX SODIUM 500 MG DR TABLET PO SCH ×2 (08:52→20:39)
[2018-03-15] MEDS: DOCUSATE SODIUM 100 MG CAPSULE PO SCH (08:52)
[2018-03-15] MEDS: OMEPRAZOLE 20 MG CAPSULE PO SCH (08:52)
[2018-03-15 08:57] LABS: GLUCOMETER DEV NAME(LOC) BV2S.; GLUCOSE,POINT OF CARE 145 MG/DL (70-110)
[2018-03-15] MEDS: INSULIN LISPRO 100 UNITS/ML SQ PRN ×2 (10:56→16:46)
[2018-03-15 11:14] LABS: GLUCOMETER DEV NAME(LOC) BV2S.; GLUCOSE,POINT OF CARE 149 MG/DL (70-110)
[2018-03-15 16:03] LABS: GLUCOMETER DEV NAME(LOC) BV2S.; GLUCOSE,POINT OF CARE 149 MG/DL (70-110)
[2018-03-15 16:11] VITALS: BP 110/61
[2018-03-15 19:53] LABS: GLUCOMETER DEV NAME(LOC) BV2S.; GLUCOSE,POINT OF CARE 102 MG/DL (70-110)
[2018-03-16 05:54] VITALS: BP 112/64
[2018-03-16 06:14] LABS: GLUCOMETER DEV NAME(LOC) BV2S.; GLUCOSE,POINT OF CARE 104 MG/DL (70-110)
[2018-03-16] MEDS: MetFORMIN HCL 500 MG TABLET PO SCH ×2 (06:36→16:16)
[2018-03-16 08:27] VITALS: BP 111/75
[2018-03-16] MEDS: OMEPRAZOLE 20 MG CAPSULE PO SCH (08:29)
[2018-03-16] MEDS: DOCUSATE SODIUM 100 MG CAPSULE PO SCH (08:29)
[2018-03-16] MEDS: DIVALPROEX SODIUM 500 MG DR TABLET PO SCH ×2 (08:30→20:09)
[2018-03-16] MEDS: OLANZapine 7.5 MG TABLET PO SCH ×2 (08:30→20:09)
[2018-03-16] MEDS ORDERED: METF-960 PO (10:53)
[2018-03-16] MEDS ORDERED: OLAN7.5T2 PO (10:53)
[2018-03-16 11:03] LABS: GLUCOMETER DEV NAME(LOC) BV2S.; GLUCOSE,POINT OF CARE 115 MG/DL (70-110)
[2018-03-16 16:09] LABS: GLUCOMETER DEV NAME(LOC) BV2S.; GLUCOSE,POINT OF CARE 112 MG/DL (70-110)
[2018-03-16 16:13] VITALS: BP 102/61
[2018-03-16] MEDS: RisperiDONE 2 MG TABLET PO SCH (16:16)
[2018-03-16] MEDS: INSULIN LISPRO 100 UNITS/ML SQ PRN (21:25)
[2018-03-17 00:58] VITALS: BP 117/76
[2018-03-17] MEDS: MetFORMIN HCL 500 MG TABLET PO SCH ×2 (06:44→17:06)
[2018-03-17 07:52] VITALS: BP 124/68
[2018-03-17] MEDS: OMEPRAZOLE 20 MG CAPSULE PO SCH (08:27)
[2018-03-17] MEDS: RisperiDONE 2 MG TABLET PO SCH ×2 (08:27→17:06)
[2018-03-17] MEDS: DIVALPROEX SODIUM 500 MG DR TABLET PO SCH ×2 (08:27→20:24)
[2018-03-17] MEDS: DOCUSATE SODIUM 100 MG CAPSULE PO SCH (08:28)
[2018-03-17] MEDS: OLANZapine 7.5 MG TABLET PO SCH ×2 (08:28→20:24)
[2018-03-17 10:48] LABS: GLUCOMETER DEV NAME(LOC) BV2S.; GLUCOSE,POINT OF CARE 101 MG/DL (70-110)
[2018-03-17 10:51] LABS: GLUCOMETER DEV NAME(LOC) BV2S.; GLUCOSE,POINT OF CARE 128 MG/DL (70-110)
[2018-03-17 10:59] LABS: GLUCOMETER DEV NAME(LOC) BV2S.; GLUCOSE,POINT OF CARE 107 MG/DL (70-110)
[2018-03-17 13:31] VITALS: BP 124/68
[2018-03-17 16:11] VITALS: BP 122/84
[2018-03-17] MEDS: INSULIN LISPRO 100 UNITS/ML SQ PRN (16:42)
[2018-03-17 17:40] LABS: GLUCOMETER DEV NAME(LOC) BV2S.; GLUCOSE,POINT OF CARE 148 MG/DL (70-110)
[2018-03-17 20:54] LABS: GLUCOMETER DEV NAME(LOC) BV2S.; GLUCOSE,POINT OF CARE 110 MG/DL (70-110)
[2018-03-18 02:00] VITALS: BP 119/79
[2018-03-18 06:14] LABS: GLUCOMETER DEV NAME(LOC) BV2S.; GLUCOSE,POINT OF CARE 89 MG/DL (70-110)
[2018-03-18] MEDS: MetFORMIN HCL 500 MG TABLET PO SCH ×2 (06:48→16:36)
[2018-03-18 08:14] VITALS: BP 119/88
[2018-03-18] MEDS: OMEPRAZOLE 20 MG CAPSULE PO SCH (08:16)
[2018-03-18] MEDS: DOCUSATE SODIUM 100 MG CAPSULE PO SCH (08:16)
[2018-03-18] MEDS: OLANZapine 7.5 MG TABLET PO SCH ×2 (08:16→20:33)
[2018-03-18] MEDS: RisperiDONE 2 MG TABLET PO SCH ×2 (08:16→16:36)
[2018-03-18] MEDS: DIVALPROEX SODIUM 500 MG DR TABLET PO SCH ×2 (08:16→20:33)
[2018-03-18 10:59] LABS: GLUCOMETER DEV NAME(LOC) BV2S.; GLUCOSE,POINT OF CARE 97 MG/DL (70-110)
[2018-03-18 16:13] VITALS: BP 129/66
[2018-03-18 16:24] LABS: GLUCOMETER DEV NAME(LOC) BV2S.; GLUCOSE,POINT OF CARE 133 MG/DL (70-110)
[2018-03-18 20:20] LABS: GLUCOMETER DEV NAME(LOC) BV2S.; GLUCOSE,POINT OF CARE 143 MG/DL (70-110)
[2018-03-18] MEDS: INSULIN LISPRO 100 UNITS/ML SQ PRN (20:38)
[2018-03-19 05:28] VITALS: BP 117/74
[2018-03-19 06:35] LABS: GLUCOMETER DEV NAME(LOC) BV2S.; GLUCOSE,POINT OF CARE 116 MG/DL (70-110)
[2018-03-19] MEDS: MetFORMIN HCL 500 MG TABLET PO SCH ×2 (06:50→16:32)
[2018-03-19 08:31] VITALS: BP 125/82
[2018-03-19] MEDS: DOCUSATE SODIUM 100 MG CAPSULE PO SCH (08:36)
[2018-03-19] MEDS: DIVALPROEX SODIUM 500 MG DR TABLET PO SCH ×2 (08:36→20:29)
[2018-03-19] MEDS: OMEPRAZOLE 20 MG CAPSULE PO SCH (08:36)
[2018-03-19] MEDS: OLANZapine 7.5 MG TABLET PO SCH ×2 (08:36→20:29)
[2018-03-19] MEDS ORDERED: RisperiDONE MICROSPHERES 50 MG/2 ML SYRINGE IM SCH (09:00)
[2018-03-19 11:04] LABS: GLUCOMETER DEV NAME(LOC) BV2S.; GLUCOSE,POINT OF CARE 126 MG/DL (70-110)
[2018-03-19 16:07] VITALS: BP 121/75
[2018-03-19 16:29] LABS: GLUCOMETER DEV NAME(LOC) BV2S.; GLUCOSE,POINT OF CARE 121 MG/DL (70-110)
[2018-03-20 05:29] VITALS: BP 116/89
[2018-03-20 05:39] LABS: GLUCOMETER DEV NAME(LOC) BV2S.; GLUCOSE,POINT OF CARE 88 MG/DL (70-110)
[2018-03-20] MEDS: MetFORMIN HCL 500 MG TABLET PO SCH (06:20)
[2018-03-20 08:26] VITALS: BP 118/78
[2018-03-20] MEDS: DIVALPROEX SODIUM 500 MG DR TABLET PO SCH (08:30)
[2018-03-20] MEDS: OLANZapine 7.5 MG TABLET PO SCH (08:30)
[2018-03-20] MEDS: DOCUSATE SODIUM 100 MG CAPSULE PO SCH (08:30)
[2018-03-20] MEDS: OMEPRAZOLE 20 MG CAPSULE PO SCH (08:30)
[2018-04-01] MEDS ORDERED: RisperiDONE MICROSPHERES 50 MG/2 ML SYRINGE IM SCH (09:00)
== END 2018-03-20 10:05 | disposition home or self-care (01) | DRG 885 ==
LOC: B2X 16:44
PROVIDERS: ADMIT Psychiatry & Neurology Child & Adolescent Psychiatry; ATTEND Psychiatry & Neurology Psychiatry
DX: F20.0 Paranoid schizophrenia (principal); G47.00 Insomnia, unspecified; K59.00 Constipation, unspecified; F41.9 Anxiety disorder, unspecified; R73.9 Hyperglycemia, unspecified
CPT/HCPCS: 83036; 84439; 84443; J2794

== ENCOUNTER 2018-05-27 14:14 | Inpatient (IN) | payer MEDICARE ==
[~2018-05-27] VITALS: Ht 170.2 cm; Wt 65.4 kg
[~2018-05-27 14:14] MED LIST changes: -BENZ1TAB10 PO; +METF-960 PO; -OLAN5TAB2 PO; +OLAN7.5T2 PO
[2018-05-27] MEDS ORDERED: ZOLPIDEM TARTRATE 10 MG TABLET PO PRN (15:15)
[2018-05-27 16:24] VITALS: BP 113/63
[2018-05-27 16:45] VITALS: BP 110/69
[2018-05-27] MEDS: LORazepam 2 MG TABLET PO PRN (16:51)
[2018-05-27 17:09] LABS: GLUCOMETER DEV NAME(LOC) BV2S.; GLUCOSE,POINT OF CARE 108 MG/DL (70-110)
[2018-05-27] MEDS ORDERED: DiphenhydrAMINE HCL 50 MG/ML VIAL ONE (17:50)
[2018-05-27] MEDS ORDERED: HALOPERIDOL LACTATE 5 MG/ML VIAL IM ONE (18:00)
[2018-05-27] MEDS ORDERED: DiphenhydrAMINE HCL 50 MG/ML VIAL IM ONE (18:00)
[2018-05-27] MEDS ORDERED: DIPH50 PO (18:03)
[2018-05-27] MEDS ORDERED: QUET25TA PO (18:03)
[2018-05-27] MEDS ORDERED: IBUPROFEN 400 MG TABLET PO PRN (21:15)
[2018-05-27] MEDS ORDERED: NICOTINE 14 MG/24 HOUR PATCH TD PRN (21:15)
[2018-05-27] MEDS ORDERED: CloNIDine HCL 0.1 MG TABLET PO PRN (21:15)
[2018-05-27] MEDS ORDERED: ACETAMINOPHEN 325 MG TABLET PO PRN (21:15)
[2018-05-27] MEDS ORDERED: ALBUTEROL SULFATE HFA 90 MCG/PUFF 8 GM INHALER IH PRN (21:15)
[2018-05-27] MEDS ORDERED: PETROLATUM,WHITE 28 GM JELLY TP PRN (21:15)
[2018-05-27] MEDS ORDERED: DOCUSATE SODIUM 100 MG CAPSULE PO PRN (21:15)
[2018-05-27] MEDS ORDERED: LOPERAMIDE HCL 2 MG CAPSULE PO PRN (21:15)
[2018-05-27] MEDS ORDERED: ONDANSETRON HCL 4 MG TABLET PO PRN (21:15)
[2018-05-27] MEDS ORDERED: MAG HYDROX/AL HYDROX/SIMETH ES 30 ML SUSPENSION UDCUP PO PRN (21:15)
[2018-05-27] MEDS ORDERED: GuaiFENesin/D-METHORPHAN [SUGAR-FREE] 200-20MG/10 ML SYRUP UDCUP PO PRN (21:15)
[2018-05-27] MEDS ORDERED: MAGNESIUM HYDROXIDE SUSPENSION 30 ML UDCUP PO PRN (21:15)
[2018-05-28 04:24] VITALS: BP 100/74
[2018-05-28 06:34] LABS: GLUCOMETER DEV NAME(LOC) BV2S.; GLUCOSE,POINT OF CARE 107 MG/DL (70-110)
[2018-05-28] MEDS: MetFORMIN HCL 500 MG TABLET PO SCH ×2 (07:03→16:10)
[2018-05-28 08:01] LABS: BASOPHILS % (AUTO) 1.2 % (0.0-2.0); HEMATOCRIT 44.2 % (41-53); HEMOGLOBIN 14.8 g/dL (13.5-17.5); LYMPHOCYTES # (AUTO) 1.7 K/uL (1.0-4.8); LYMPHOCYTES % (AUTO) 34.7 % (22.0-44.0); MEAN CORPUSCULAR HEMOGLOBIN 31.5 pg (26.0-34.0); MEAN CORPUSCULAR HGB CONC 33.4 G/dL (31.0-37.0); MEAN CORPUSCULAR VOLUME 94 fL (80-100); MONOCYTES # (AUTO) 0.4 K/uL (0.1-1.0); MONOCYTES % (AUTO) 7.8 % (2.0-9.0); NEUTROPHILS # (AUTO) 2.5 K/uL (1.8-7.7); NEUTROPHILS % (AUTO) 52.3 % (40.0-70.0); PLATELET COUNT (AUTO) 314 K/uL (150-450); RED CELL DISTRIBUTION WIDTH 13.1 % (11.5-14.5)
[2018-05-28 08:09] VITALS: BP 125/69
[2018-05-28 08:48] LABS: ALANINE AMINOTRANSFERASE 37 U/L (12-78); ALBUMIN 3.4 g/dL (3.4-5.0); ALKALINE PHOSPHATASE 102 U/L (46-116); ANION GAP 11 mmol/L (8-16); ASPARTATE AMINOTRANSFERASE 38 U/L (15-37); BILIRUBIN,TOTAL 0.2 mg/dL (0.1-1.0); CARBON DIOXIDE 23 mmol/L (22-29); CHLORIDE 103 mmol/L (98-107); CHOL/HDL RATIO 3.5 (4.2-7.3); CHOLESTEROL 168 mg/dL (131-200); CREATININE 0.98 mg/dL (0.60-1.30); FREE T4 (FREE THYROXINE) 0.81 ng/dL (0.76-1.46); GLOMERULAR FILTR. RATE CALC > 60 mL/min (>60); GLUCOSE,RANDOM 152 mg/dL (70-110); HDL CHOLESTEROL 48 mg/dL (40-60); LDL CHOL (CALC.) 95 mg/dL (0-130); POTASSIUM 4.4 mmol/L (3.5-5.1); SODIUM SERUM 137 mmol/L (136-145); THYROID STIMULATING HORMONE 0.77 uIU/mL (0.36-3.74); TOTAL PROTEIN, SERUM 6.3 g/dL (6.4-8.2); TRIGLYCERIDES 124 mg/dL (15-150); UREA NITROGEN, BLOOD 14 mg/dL (7-18)
[2018-05-28] MEDS: LORazepam 2 MG TABLET PO PRN (15:52)
[2018-05-28] MEDS: RisperiDONE 2 MG TABLET PO SCH (16:10)
[2018-05-28 16:23] VITALS: BP 127/83
[2018-05-28 16:34] LABS: GLUCOMETER DEV NAME(LOC) BV2S.; GLUCOSE,POINT OF CARE 97 MG/DL (70-110)
[2018-05-28] MEDS: OLANZapine 7.5 MG TABLET PO SCH (20:30)
[2018-05-28] MEDS: DIVALPROEX SODIUM 500 MG DR TABLET PO SCH (20:30)
[2018-05-29 00:10] VITALS: BP 116/76
[2018-05-29] MEDS: MetFORMIN HCL 500 MG TABLET PO SCH ×2 (06:27→16:29)
[2018-05-29] MEDS: QUEtiapine FUMARATE 100 MG TABLET PO PRN (07:05)
[2018-05-29 07:19] LABS: GLUCOMETER DEV NAME(LOC) BV2S.; GLUCOSE,POINT OF CARE 96 MG/DL (70-110)
[2018-05-29] MEDS: OLANZapine 7.5 MG TABLET PO SCH ×2 (08:30→20:38)
[2018-05-29] MEDS: LORazepam 2 MG TABLET PO PRN ×2 (08:30→17:57)
[2018-05-29] MEDS: RisperiDONE 2 MG TABLET PO SCH ×2 (08:30→16:29)
[2018-05-29] MEDS: DIVALPROEX SODIUM 500 MG DR TABLET PO SCH ×2 (08:30→20:38)
[2018-05-29 11:16] VITALS: BP 117/79
[2018-05-29 16:24] LABS: GLUCOMETER DEV NAME(LOC) BV2S.; GLUCOSE,POINT OF CARE 247 MG/DL (70-110)
[2018-05-29 16:26] VITALS: BP 125/94
[2018-05-29] MEDS: INSULIN LISPRO 100 UNITS/ML SQ PRN (17:24)
[2018-05-29] MEDS ORDERED: GLUCAGON,HUMAN RECOMBINANT 1 MG VIAL IM PRN (17:30)
[2018-05-29 20:29] LABS: GLUCOMETER DEV NAME(LOC) BV2S.; GLUCOSE,POINT OF CARE 103 MG/DL (70-110)
[2018-05-30 06:28] VITALS: BP 128/78
[2018-05-30] MEDS: MetFORMIN HCL 500 MG TABLET PO SCH ×2 (06:36→16:38)
[2018-05-30 06:50] LABS: GLUCOMETER DEV NAME(LOC) BV2S.; GLUCOSE,POINT OF CARE 87 MG/DL (70-110)
[2018-05-30 08:41] VITALS: BP 131/82
[2018-05-30] MEDS: DIVALPROEX SODIUM 500 MG DR TABLET PO SCH ×2 (08:42→20:54)
[2018-05-30] MEDS: RisperiDONE 2 MG TABLET PO SCH ×2 (08:42→16:38)
[2018-05-30] MEDS: OLANZapine 7.5 MG TABLET PO SCH ×2 (08:42→20:54)
[2018-05-30] MEDS: QUEtiapine FUMARATE 100 MG TABLET PO PRN ×2 (10:03→14:37)
[2018-05-30] MEDS: LORazepam 2 MG TABLET PO PRN ×2 (10:03→14:37)
[2018-05-30 12:09] LABS: GLUCOMETER DEV NAME(LOC) BV2S.; GLUCOSE,POINT OF CARE 133 MG/DL (70-110)
[2018-05-30 16:00] VITALS: BP 121/74
[2018-05-30 16:29] LABS: GLUCOMETER DEV NAME(LOC) BV2S.; GLUCOSE,POINT OF CARE 102 MG/DL (70-110)
[2018-05-30 20:41] LABS: GLUCOMETER DEV NAME(LOC) BV2S.; GLUCOSE,POINT OF CARE 136 MG/DL (70-110)
[2018-05-31 05:40] VITALS: BP 128/75
[2018-05-31 06:19] LABS: GLUCOMETER DEV NAME(LOC) BV2S.; GLUCOSE,POINT OF CARE 95 MG/DL (70-110)
[2018-05-31] MEDS: MetFORMIN HCL 500 MG TABLET PO SCH ×2 (07:03→16:48)
[2018-05-31] MEDS: DIVALPROEX SODIUM 500 MG DR TABLET PO SCH ×2 (08:57→20:38)
[2018-05-31] MEDS: LORazepam 2 MG TABLET PO PRN ×2 (08:57→21:06)
[2018-05-31] MEDS: OLANZapine 7.5 MG TABLET PO SCH ×2 (08:57→20:39)
[2018-05-31] MEDS: RisperiDONE 2 MG TABLET PO SCH ×2 (08:57→16:48)
[2018-05-31 09:47] VITALS: BP 112/75
[2018-05-31] MEDS: INSULIN LISPRO 100 UNITS/ML SQ PRN ×2 (11:03→20:43)
[2018-05-31 11:14] LABS: GLUCOMETER DEV NAME(LOC) BV2S.; GLUCOSE,POINT OF CARE 152 MG/DL (70-110)
[2018-05-31 16:07] VITALS: BP 116/84
[2018-05-31 16:20] LABS: GLUCOMETER DEV NAME(LOC) BV2S.; GLUCOSE,POINT OF CARE 134 MG/DL (70-110)
[2018-05-31 20:24] LABS: GLUCOMETER DEV NAME(LOC) BV2S.; GLUCOSE,POINT OF CARE 159 MG/DL (70-110)
[2018-06-01 00:40] VITALS: BP 139/81
[2018-06-01 06:20] LABS: GLUCOMETER DEV NAME(LOC) BV2S.; GLUCOSE,POINT OF CARE 78 MG/DL (70-110)
[2018-06-01] MEDS: MetFORMIN HCL 500 MG TABLET PO SCH (06:42)
[2018-06-01] MEDS: DIVALPROEX SODIUM 500 MG DR TABLET PO SCH (08:07)
[2018-06-01] MEDS: RisperiDONE 2 MG TABLET PO SCH (08:07)
[2018-06-01] MEDS: LORazepam 2 MG TABLET PO PRN (08:07)
[2018-06-01] MEDS: OLANZapine 7.5 MG TABLET PO SCH (08:07)
[2018-06-01 08:20] VITALS: BP 127/79
[2018-06-01] MEDS ORDERED: RISP2 PO (09:59)
[2018-06-01] MEDS: INSULIN LISPRO 100 UNITS/ML SQ PRN (10:55)
[2018-06-01 11:04] LABS: GLUCOMETER DEV NAME(LOC) BV2S.; GLUCOSE,POINT OF CARE 143 MG/DL (70-110)
== END 2018-06-01 13:30 | disposition home or self-care (01) | DRG 885 ==
LOC: B2X 16:06
PROVIDERS: ADMIT Psychiatry & Neurology Child & Adolescent Psychiatry; ATTEND Psychiatry & Neurology Child & Adolescent Psychiatry
DX: F25.0 Schizoaffective disorder, bipolar type (principal); I10 Essential (primary) hypertension; K21.9 Gastro-esophageal reflux disease without esophagitis; K59.00 Constipation, unspecified; F10.10 Alcohol abuse, uncomplicated; E78.00 Pure hypercholesterolemia, unspecified; E11.9 Type 2 diabetes mellitus without complications; Z59.0 Homelessness; Z91.14 Patient's other noncompliance with medication regimen; Z91.19 Patient's noncompliance with other medical treatment and regimen; Z91.5 Personal history of self-harm
CPT/HCPCS: 83036; 84439; 84443; J1200; J1630

== ENCOUNTER 2018-08-18 11:05 | Emergency (ER) | payer MEDICARE ==
[~2018-08-18] VITALS: Ht 170.2 cm; Wt 63.6 kg
[~2018-08-18 11:05] MED LIST changes: -DIVA-78 PO; +LISI-622 PO; +METO50 PO; -OLAN7.5T2 PO; +PRAV20TA PO; +RISP3 PO
[2018-08-18 11:34] LABS: GLUCOSE,POINT OF CARE 127 MG/DL (70-110)
[2018-08-18 11:56] LABS: BASOPHILS % (AUTO) 1.2 % (0.0-2.0); EOSINOPHILS % (AUTO) 3.2 % (1.0-6.0); HEMATOCRIT 47.2 % (41-53); LYMPHOCYTES # (AUTO) 1.7 K/uL (1.0-4.8); LYMPHOCYTES % (AUTO) 30.6 % (22.0-44.0); MEAN CORPUSCULAR HGB CONC 33.9 G/dL (31.0-37.0); MEAN CORPUSCULAR VOLUME 95 fL (80-100); MONOCYTES # (AUTO) 0.5 K/uL (0.1-1.0); MONOCYTES % (AUTO) 9.5 % (2.0-9.0); NEUTROPHILS # (AUTO) 3.2 K/uL (1.8-7.7); NEUTROPHILS % (AUTO) 55.5 % (40.0-70.0); PLATELET COUNT (AUTO) 316 K/uL (150-450); RED BLOOD CELL COUNT(AUTO) 4.99 MIL/uL (4.50-5.90); RED CELL DISTRIBUTION WIDTH 13.8 % (11.5-14.5)
[2018-08-18 12:04] LABS: ANION GAP 9 mmol/L (8-16); CALCIUM, TOTAL 9.4 mg/dL (8.8-10.5); CARBON DIOXIDE 30 mmol/L (22-29); CHLORIDE 104 mmol/L (98-107); CREATININE 0.99 mg/dL (0.60-1.30); GLOMERULAR FILTR. RATE CALC > 60 mL/min (>60); GLUCOSE,RANDOM 80 mg/dL (70-110); POTASSIUM 3.5 mmol/L (3.5-5.1); SODIUM SERUM 143 mmol/L (136-145); UREA NITROGEN, BLOOD 8 mg/dL (7-18)
[2018-08-18 12:10] LABS: ALANINE AMINOTRANSFERASE 29 U/L (12-78); ALBUMIN 3.8 g/dL (3.4-5.0); ALKALINE PHOSPHATASE 122 U/L (46-116); ASPARTATE AMINOTRANSFERASE 15 U/L (15-37); BILIRUBIN,TOTAL 0.3 mg/dL (0.1-1.0); TOTAL PROTEIN, SERUM 7.4 g/dL (6.4-8.2)
[2018-08-18 13:24] LABS: APPEARANCE,URINE CLEAR (CLEAR); GLUCOSE, URINE (UA) NEGATIVE (NEGATIVE); KETONES,URINE TRACE mg/dL (NEGATIVE); LEUKOCYTE ESTERASE ,URINE NEGATIVE (NEGATIVE); NITRATE,URINE NEGATIVE (NEGATIVE); OCCULT BLOOD,URINE NEGATIVE (NEGATIVE); PH,URINE 5.5 (5.0-8.0); PROTEIN,URINE NEGATIVE (NEGATIVE); UROBILINOGEN,URINE 0.2 mg/dL (<=1.0)
[2018-08-18 13:25] LABS: AMPHET/METH SCREEN,URINE POSITIVE (NEGATIVE); BARBITURATE SCREEN, URINE NEGATIVE (NEGATIVE); BENZODIAZEPINES SCREEN,URINE NEGATIVE (NEGATIVE); CANNABINOID SCREEN,URINE NEGATIVE (NEGATIVE); COCAINE SCREEN,URINE NEGATIVE (NEGATIVE); METHADONE SCREEN, URINE NEGATIVE (NEGATIVE); OPIATE SCREEN,URINE NEGATIVE (NEGATIVE); PHENCYCLIDINE SCREEN,URINE NEGATIVE (NEGATIVE)
[2018-08-18 13:32] LABS: BILIRUBIN,URINE PRELIM. POSITIVE (NEGATIVE)
[2018-08-18 15:40] VITALS: BP 121/81
== END 2018-08-18 15:54 | disposition home or self-care (01) ==
LOC: EMS 11:10
DX: T73.0XXA Starvation, initial encounter (principal); R11.10 Vomiting, unspecified; R10.9 Unspecified abdominal pain; E11.9 Type 2 diabetes mellitus without complications; I10 Essential (primary) hypertension; F20.9 Schizophrenia, unspecified; F17.210 Nicotine dependence, cigarettes, uncomplicated; F15.90 Other stimulant use, unspecified, uncomplicated; Z59.0 Homelessness; Z79.899 Other long term (current) drug therapy; X58.XXXA Exposure to other specified factors, initial encounter
CPT/HCPCS: 36415; 80053; 80307; 81003; 82962; 85025; 99283; 99406; G0480

== ENCOUNTER 2018-08-25 13:44 | Inpatient (IN) | payer MEDICARE ==
[~2018-08-25] VITALS: Ht 170.2 cm; Wt 68.7 kg
[2018-08-25 15:03] LABS: GLUCOSE,POINT OF CARE 130 MG/DL (70-110)
[2018-08-25] MEDS ORDERED: LORazepam 1 MG TABLET PO ONE (18:00)
[2018-08-25 18:13] LABS: AMPHET/METH SCREEN,URINE POSITIVE (NEGATIVE); BARBITURATE SCREEN, URINE NEGATIVE (NEGATIVE); BENZODIAZEPINES SCREEN,URINE NEGATIVE (NEGATIVE); CANNABINOID SCREEN,URINE NEGATIVE (NEGATIVE); COCAINE SCREEN,URINE NEGATIVE (NEGATIVE); METHADONE SCREEN, URINE NEGATIVE (NEGATIVE); OPIATE SCREEN,URINE NEGATIVE (NEGATIVE)
[2018-08-25 18:15] LABS: PHENCYCLIDINE SCREEN,URINE NEGATIVE (NEGATIVE)
[2018-08-25 18:39] LABS: EOSINOPHILS % (AUTO) 5.7 % (1.0-6.0); HEMOGLOBIN 15.1 g/dL (13.5-17.5); LYMPHOCYTES # (AUTO) 2.2 K/uL (1.0-4.8); LYMPHOCYTES % (AUTO) 37.8 % (22.0-44.0); MEAN CORPUSCULAR HEMOGLOBIN 31.9 pg (26.0-34.0); MEAN CORPUSCULAR HGB CONC 32.9 G/dL (31.0-37.0); MEAN CORPUSCULAR VOLUME 97 fL (80-100); MONOCYTES # (AUTO) 0.6 K/uL (0.1-1.0); MONOCYTES % (AUTO) 10.2 % (2.0-9.0); NEUTROPHILS # (AUTO) 2.6 K/uL (1.8-7.7); NEUTROPHILS % (AUTO) 45.3 % (40.0-70.0); PLATELET COUNT (AUTO) 274 K/uL (150-450); RED BLOOD CELL COUNT(AUTO) 4.73 MIL/uL (4.50-5.90); RED CELL DISTRIBUTION WIDTH 13.6 % (11.5-14.5)
[2018-08-25 18:45] LABS: ANION GAP 7 mmol/L (8-16); CALCIUM, TOTAL 9.8 mg/dL (8.8-10.5); CARBON DIOXIDE 29 mmol/L (22-29); CHLORIDE 106 mmol/L (98-107); CREATININE 0.98 mg/dL (0.60-1.30); GLOMERULAR FILTR. RATE CALC > 60 mL/min (>60); GLUCOSE,RANDOM 99 mg/dL (70-110); POTASSIUM 3.9 mmol/L (3.5-5.1); SODIUM SERUM 142 mmol/L (136-145); UREA NITROGEN, BLOOD 17 mg/dL (7-18)
[2018-08-25 18:59] LABS: ALANINE AMINOTRANSFERASE 26 U/L (12-78); ALBUMIN 3.7 g/dL (3.4-5.0); ALKALINE PHOSPHATASE 117 U/L (46-116); ASPARTATE AMINOTRANSFERASE 15 U/L (15-37); BILIRUBIN,TOTAL 0.3 mg/dL (0.1-1.0); TOTAL PROTEIN, SERUM 7.3 g/dL (6.4-8.2)
[2018-08-26 06:29] LABS: GLUCOSE,POINT OF CARE 113 MG/DL (70-110)
[2018-08-26 06:30] VITALS: BP 121/91
[2018-08-26] MEDS ORDERED: DOCUSATE SODIUM 100 MG CAPSULE PO PRN (06:45)
[2018-08-26] MEDS ORDERED: ONDANSETRON HCL 4 MG TABLET PO PRN (06:45)
[2018-08-26] MEDS ORDERED: NICOTINE 14 MG/24 HOUR PATCH TD PRN (06:45)
[2018-08-26] MEDS ORDERED: GuaiFENesin/D-METHORPHAN [SUGAR-FREE] 200-20MG/10 ML SYRUP UDCUP PO PRN (06:45)
[2018-08-26] MEDS ORDERED: LOPERAMIDE HCL 2 MG CAPSULE PO PRN (06:45)
[2018-08-26] MEDS ORDERED: MAG HYDROX/AL HYDROX/SIMETH ES 30 ML SUSPENSION UDCUP PO PRN (06:45)
[2018-08-26] MEDS ORDERED: CloNIDine HCL 0.1 MG TABLET PO PRN (06:45)
[2018-08-26] MEDS ORDERED: ALBUTEROL SULFATE HFA 90 MCG/PUFF 8 GM INHALER IH PRN (06:45)
[2018-08-26] MEDS ORDERED: ACETAMINOPHEN 325 MG TABLET PO PRN (06:45)
[2018-08-26] MEDS ORDERED: IBUPROFEN 400 MG TABLET PO PRN (06:45)
[2018-08-26] MEDS ORDERED: PETROLATUM,WHITE 28 GM JELLY TP PRN (06:45)
[2018-08-26] MEDS ORDERED: MAGNESIUM HYDROXIDE SUSPENSION 30 ML UDCUP PO PRN (06:45)
[2018-08-26] MEDS: MetFORMIN HCL 500 MG TABLET PO SCH ×2 (07:10→17:16)
[2018-08-26] MEDS ORDERED: -PHARMACY VACCINE NOTE- MISC ONE (07:30)
[2018-08-26 08:00] VITALS: BP 126/74
[2018-08-26 08:11] LABS: HEMOGLOBIN A1C 6.2 % (4.5-6.2)
[2018-08-26 08:17] LABS: CHOL/HDL RATIO 3.6 (4.2-7.3)
[2018-08-26] MEDS: LISINOPRIL 5 MG TABLET PO SCH (09:23)
[2018-08-26] MEDS: METOPROLOL TARTRATE 50 MG TABLET PO SCH ×2 (09:23→16:22)
[2018-08-26] MEDS: LORazepam 2 MG TABLET PO PRN (09:27)
[2018-08-26] MEDS: HALOPERIDOL 5 MG TABLET PO PRN (09:27)
[2018-08-26 16:59] VITALS: BP 101/67
[2018-08-26] MEDS: RisperiDONE 3 MG TABLET PO SCH (17:16)
[2018-08-26] MEDS: PRAVASTATIN SODIUM 20 MG TABLET PO SCH (20:26)
[2018-08-27 00:56] VITALS: BP 98/73
[2018-08-27] MEDS: MetFORMIN HCL 500 MG TABLET PO SCH ×2 (06:55→16:32)
[2018-08-27 07:25] LABS: BASOPHILS % (AUTO) 0.9 % (0.0-2.0); EOSINOPHILS % (AUTO) 4.2 % (1.0-6.0); HEMOGLOBIN 15.1 g/dL (13.5-17.5); LYMPHOCYTES # (AUTO) 2.1 K/uL (1.0-4.8); LYMPHOCYTES % (AUTO) 40.7 % (22.0-44.0); MEAN CORPUSCULAR HEMOGLOBIN 31.5 pg (26.0-34.0); MEAN CORPUSCULAR HGB CONC 32.9 G/dL (31.0-37.0); MEAN CORPUSCULAR VOLUME 96 fL (80-100); MONOCYTES # (AUTO) 0.5 K/uL (0.1-1.0); MONOCYTES % (AUTO) 9.9 % (2.0-9.0); NEUTROPHILS # (AUTO) 2.3 K/uL (1.8-7.7); NEUTROPHILS % (AUTO) 44.3 % (40.0-70.0); PLATELET COUNT (AUTO) 259 K/uL (150-450); RED CELL DISTRIBUTION WIDTH 13.4 % (11.5-14.5)
[2018-08-27 07:55] LABS: ALANINE AMINOTRANSFERASE 28 U/L (12-78); ALBUMIN 3.4 g/dL (3.4-5.0); ALKALINE PHOSPHATASE 106 U/L (46-116); ANION GAP 3 mmol/L (8-16); ASPARTATE AMINOTRANSFERASE 16 U/L (15-37); BILIRUBIN,TOTAL 0.3 mg/dL (0.1-1.0); CALCIUM, TOTAL 9.5 mg/dL (8.8-10.5); CARBON DIOXIDE 28 mmol/L (22-29); CHLORIDE 105 mmol/L (98-107); CHOL/HDL RATIO 3.8 (4.2-7.3); CHOLESTEROL 179 mg/dL (131-200); CREATININE 0.85 mg/dL (0.60-1.30); GLOMERULAR FILTR. RATE CALC > 60 mL/min (>60); GLUCOSE,RANDOM 87 mg/dL (70-110); HDL CHOLESTEROL 47 mg/dL (40-60); LDL CHOL (CALC.) 108 mg/dL (0-130); POTASSIUM 4.3 mmol/L (3.5-5.1); SODIUM SERUM 136 mmol/L (136-145); THYROID STIMULATING HORMONE 0.68 uIU/mL (0.36-3.74); TOTAL PROTEIN, SERUM 7.1 g/dL (6.4-8.2); TRIGLYCERIDES 120 mg/dL (15-150); UREA NITROGEN, BLOOD 14 mg/dL (7-18)
[2018-08-27 08:00] VITALS: BP 109/69
[2018-08-27] MEDS: HALOPERIDOL 5 MG TABLET PO PRN ×2 (08:22→16:10)
[2018-08-27] MEDS: LISINOPRIL 5 MG TABLET PO SCH (08:22)
[2018-08-27] MEDS: LORazepam 2 MG TABLET PO PRN ×3 (08:22→20:43)
[2018-08-27] MEDS: METOPROLOL TARTRATE 50 MG TABLET PO SCH ×2 (08:22→16:09)
[2018-08-27] MEDS: RisperiDONE 3 MG TABLET PO SCH ×2 (08:22→16:09)
[2018-08-27 16:19] VITALS: BP 101/61
[2018-08-27] MEDS: PRAVASTATIN SODIUM 20 MG TABLET PO SCH (20:42)
[2018-08-28] MEDS: MetFORMIN HCL 500 MG TABLET PO SCH ×2 (06:51→17:33)
[2018-08-28] MEDS: RisperiDONE 3 MG TABLET PO SCH ×2 (08:11→16:15)
[2018-08-28] MEDS: METOPROLOL TARTRATE 50 MG TABLET PO SCH ×2 (08:11→16:15)
[2018-08-28] MEDS: LISINOPRIL 5 MG TABLET PO SCH (08:11)
[2018-08-28 09:29] VITALS: BP 112/61
[2018-08-28] MEDS: HALOPERIDOL 5 MG TABLET PO PRN ×2 (12:51→17:53)
[2018-08-28] MEDS: LORazepam 2 MG TABLET PO PRN ×2 (12:51→17:52)
[2018-08-28 16:07] VITALS: BP 142/88
[2018-08-28] MEDS: ZOLPIDEM TARTRATE 10 MG TABLET PO PRN (21:02)
[2018-08-28] MEDS: PRAVASTATIN SODIUM 20 MG TABLET PO SCH (21:04)
[2018-08-29] MEDS: MetFORMIN HCL 500 MG TABLET PO SCH ×2 (06:57→16:30)
[2018-08-29 08:25] VITALS: BP 114/77
[2018-08-29] MEDS: LORazepam 2 MG TABLET PO PRN ×2 (08:32→16:14)
[2018-08-29] MEDS: RisperiDONE 3 MG TABLET PO SCH ×2 (08:32→16:12)
[2018-08-29] MEDS: LISINOPRIL 5 MG TABLET PO SCH (08:32)
[2018-08-29] MEDS: HALOPERIDOL 5 MG TABLET PO PRN ×2 (08:32→16:14)
[2018-08-29] MEDS: METOPROLOL TARTRATE 50 MG TABLET PO SCH ×2 (08:32→16:12)
[2018-08-29 16:35] VITALS: BP 136/72
[2018-08-29] MEDS: PRAVASTATIN SODIUM 20 MG TABLET PO SCH (20:00)
[2018-08-29] MEDS: ZOLPIDEM TARTRATE 10 MG TABLET PO PRN (23:42)
[2018-08-30] MEDS: MetFORMIN HCL 500 MG TABLET PO SCH ×2 (06:51→16:28)
[2018-08-30 08:17] VITALS: BP 109/74
[2018-08-30] MEDS: RisperiDONE 3 MG TABLET PO SCH ×2 (08:33→16:28)
[2018-08-30] MEDS: HALOPERIDOL 5 MG TABLET PO PRN (08:33)
[2018-08-30] MEDS: METOPROLOL TARTRATE 50 MG TABLET PO SCH ×2 (08:33→16:28)
[2018-08-30] MEDS: LORazepam 2 MG TABLET PO PRN (08:33)
[2018-08-30] MEDS: LISINOPRIL 5 MG TABLET PO SCH (08:33)
[2018-08-30] MEDS ORDERED: PALIPERIDONE PALMITATE 234 MG/1.5 ML SYRINGE IM ONE (09:30)
[2018-08-30 16:00] VITALS: BP 100/59
[2018-08-30] MEDS: PRAVASTATIN SODIUM 20 MG TABLET PO SCH (20:04)
[2018-08-30] MEDS: ZOLPIDEM TARTRATE 10 MG TABLET PO PRN (21:00)
[2018-08-31] MEDS: MetFORMIN HCL 500 MG TABLET PO SCH ×2 (07:03→16:10)
[2018-08-31] MEDS: LISINOPRIL 5 MG TABLET PO SCH (08:16)
[2018-08-31] MEDS: METOPROLOL TARTRATE 50 MG TABLET PO SCH ×2 (08:16→16:10)
[2018-08-31] MEDS: RisperiDONE 3 MG TABLET PO SCH ×2 (08:16→16:10)
[2018-08-31] MEDS: HALOPERIDOL 5 MG TABLET PO PRN (08:18)
[2018-08-31] MEDS: LORazepam 2 MG TABLET PO PRN (08:18)
[2018-08-31 16:26] VITALS: BP 139/86
[2018-08-31] MEDS: PRAVASTATIN SODIUM 20 MG TABLET PO SCH (20:37)
[2018-08-31] MEDS: ZOLPIDEM TARTRATE 10 MG TABLET PO PRN (20:37)
[2018-09-01] MEDS: MetFORMIN HCL 500 MG TABLET PO SCH ×2 (07:06→16:45)
[2018-09-01 08:00] VITALS: BP 96/61
[2018-09-01] MEDS: LORazepam 2 MG TABLET PO PRN ×2 (08:14→22:18)
[2018-09-01] MEDS: LISINOPRIL 5 MG TABLET PO SCH (08:14)
[2018-09-01] MEDS: RisperiDONE 3 MG TABLET PO SCH ×2 (08:14→16:45)
[2018-09-01] MEDS: METOPROLOL TARTRATE 50 MG TABLET PO SCH ×2 (08:14→16:45)
[2018-09-01] MEDS: HALOPERIDOL 5 MG TABLET PO PRN (08:14)
[2018-09-01 16:14] VITALS: BP 135/84
[2018-09-01] MEDS: PRAVASTATIN SODIUM 20 MG TABLET PO SCH (20:04)
[2018-09-01] MEDS: ZOLPIDEM TARTRATE 10 MG TABLET PO PRN (20:17)
[2018-09-02 03:09] VITALS: BP 106/65
[2018-09-02] MEDS: MetFORMIN HCL 500 MG TABLET PO SCH ×2 (07:00→17:22)
[2018-09-02 08:09] VITALS: BP 114/78
[2018-09-02] MEDS: METOPROLOL TARTRATE 50 MG TABLET PO SCH ×2 (09:26→17:22)
[2018-09-02] MEDS: LISINOPRIL 5 MG TABLET PO SCH (09:26)
[2018-09-02] MEDS: RisperiDONE 3 MG TABLET PO SCH ×2 (09:26→17:22)
[2018-09-02 17:06] VITALS: BP 115/63
[2018-09-02] MEDS: HALOPERIDOL 5 MG TABLET PO PRN (18:54)
[2018-09-02] MEDS: LORazepam 2 MG TABLET PO PRN (18:54)
[2018-09-02] MEDS: PRAVASTATIN SODIUM 20 MG TABLET PO SCH (20:25)
[2018-09-02] MEDS: ZOLPIDEM TARTRATE 10 MG TABLET PO PRN (21:20)
[2018-09-03] MEDS: MetFORMIN HCL 500 MG TABLET PO SCH ×2 (06:50→16:22)
[2018-09-03] MEDS: HALOPERIDOL 5 MG TABLET PO PRN (08:15)
[2018-09-03] MEDS: LORazepam 2 MG TABLET PO PRN (08:16)
[2018-09-03] MEDS: RisperiDONE 3 MG TABLET PO SCH ×2 (08:16→16:23)
[2018-09-03 08:39] VITALS: BP 101/54
[2018-09-03] MEDS: LISINOPRIL 5 MG TABLET PO SCH (09:00)
[2018-09-03] MEDS ORDERED: PALIPERIDONE PALMITATE 156 MG/ML SYRINGE IM ONE (09:00)
[2018-09-03] MEDS: METOPROLOL TARTRATE 50 MG TABLET PO SCH ×2 (09:00→16:24)
[2018-09-03 16:15] VITALS: BP 96/58
[2018-09-03] MEDS: PRAVASTATIN SODIUM 20 MG TABLET PO SCH (20:20)
[2018-09-04] MEDS: LORazepam 2 MG TABLET PO PRN ×2 (00:20→14:05)
[2018-09-04] MEDS: ZOLPIDEM TARTRATE 10 MG TABLET PO PRN (00:20)
[2018-09-04 00:27] VITALS: BP 109/65
[2018-09-04] MEDS: MetFORMIN HCL 500 MG TABLET PO SCH ×2 (06:54→16:13)
[2018-09-04 08:23] VITALS: BP 136/94
[2018-09-04] MEDS: METOPROLOL TARTRATE 50 MG TABLET PO SCH ×2 (08:36→16:14)
[2018-09-04] MEDS: RisperiDONE 3 MG TABLET PO SCH ×2 (08:36→16:13)
[2018-09-04] MEDS: LISINOPRIL 5 MG TABLET PO SCH (08:36)
[2018-09-04] MEDS ORDERED: PALI234D IM (13:28)
[2018-09-04] MEDS: HALOPERIDOL 5 MG TABLET PO PRN (14:05)
[2018-09-04 18:26] VITALS: BP 106/64
[2018-09-17] MEDS ORDERED: RisperiDONE 3 MG TABLET PO SCH (17:00)
[2018-10-01] MEDS ORDERED: PALIPERIDONE PALMITATE 234 MG/1.5 ML SYRINGE IM SCH (09:00)
== END 2018-09-04 19:15 | disposition home or self-care (01) | DRG 885 ==
LOC: EMS 13:46 → 3EI 08-26 05:00 → 3EC 08-27 09:30
DX: F20.0 Paranoid schizophrenia (principal); E11.9 Type 2 diabetes mellitus without complications; E78.5 Hyperlipidemia, unspecified; F10.10 Alcohol abuse, uncomplicated; I10 Essential (primary) hypertension; K21.9 Gastro-esophageal reflux disease without esophagitis; F17.210 Nicotine dependence, cigarettes, uncomplicated; F19.10 Other psychoactive substance abuse, uncomplicated; F15.10 Other stimulant abuse, uncomplicated; Z79.899 Other long term (current) drug therapy
CPT/HCPCS: 83036; 84443; G0480

== ENCOUNTER 2018-12-13 16:34 | Inpatient (IN) | payer MEDICARE ==
[~2018-12-13] VITALS: Ht 170.2 cm; Wt 64.0 kg
[~2018-12-13 16:34] MED LIST changes: +PALI234D IM
[2018-12-13 17:37] LABS: BASOPHILS % (AUTO) 0.9 % (0.0-2.0); EOSINOPHILS % (AUTO) 2.5 % (1.0-6.0); HEMATOCRIT 43.7 % (41-53); HEMOGLOBIN 14.6 g/dL (13.5-17.5); LYMPHOCYTES # (AUTO) 1.6 K/uL (1.0-4.8); MEAN CORPUSCULAR HEMOGLOBIN 31.9 pg (26.0-34.0); MEAN CORPUSCULAR HGB CONC 33.5 G/dL (31.0-37.0); MEAN CORPUSCULAR VOLUME 95 fL (80-100); MONOCYTES # (AUTO) 0.9 K/uL (0.1-1.0); MONOCYTES % (AUTO) 14.2 % (2.0-9.0); NEUTROPHILS # (AUTO) 3.6 K/uL (1.8-7.7); NEUTROPHILS % (AUTO) 57.4 % (40.0-70.0); PLATELET COUNT (AUTO) 300 K/uL (150-450); RED BLOOD CELL COUNT(AUTO) 4.59 MIL/uL (4.50-5.90); RED CELL DISTRIBUTION WIDTH 13.3 % (11.5-14.5)
[2018-12-13 18:07] LABS: ANION GAP 5 mmol/L (8-16); CALCIUM, TOTAL 9.5 mg/dL (8.8-10.5); CARBON DIOXIDE 33 mmol/L (22-29); CHLORIDE 104 mmol/L (98-107); GLOMERULAR FILTR. RATE CALC > 60 mL/min (>60); GLUCOSE,RANDOM 81 mg/dL (70-110); POTASSIUM 4.2 mmol/L (3.5-5.1); SODIUM SERUM 142 mmol/L (136-145); UREA NITROGEN, BLOOD 12 mg/dL (7-18)
[2018-12-13 18:27] LABS: ALANINE AMINOTRANSFERASE 24 U/L (12-78); ALBUMIN 3.7 g/dL (3.4-5.0); ALKALINE PHOSPHATASE 137 U/L (46-116); ASPARTATE AMINOTRANSFERASE 12 U/L (15-37); BILIRUBIN,TOTAL 0.3 mg/dL (0.1-1.0); TOTAL PROTEIN, SERUM 7.3 g/dL (6.4-8.2)
[2018-12-13] MEDS ORDERED: HALOPERIDOL 5 MG TABLET PO PRN (18:30)
[2018-12-13 19:12] LABS: AMPHET/METH SCREEN,URINE NEGATIVE (NEGATIVE); BARBITURATE SCREEN, URINE NEGATIVE (NEGATIVE); BENZODIAZEPINES SCREEN,URINE NEGATIVE (NEGATIVE); CANNABINOID SCREEN,URINE NEGATIVE (NEGATIVE); COCAINE SCREEN,URINE NEGATIVE (NEGATIVE); METHADONE SCREEN, URINE NEGATIVE (NEGATIVE); OPIATE SCREEN,URINE NEGATIVE (NEGATIVE)
[2018-12-13 19:14] LABS: PHENCYCLIDINE SCREEN,URINE NEGATIVE (NEGATIVE)
[2018-12-13 22:45] LABS: GLUCOSE,POINT OF CARE 101 MG/DL (70-110)
[2018-12-13] MEDS ORDERED: INSULIN LISPRO 100 UNITS/ML SQ PRN (22:45)
[2018-12-13] MEDS ORDERED: GLUCAGON,HUMAN RECOMBINANT 1 MG VIAL IM PRN (22:45)
[2018-12-14 00:28] VITALS: BP 128/82
[2018-12-14] MEDS ORDERED: -PHARMACY VACCINE NOTE- MISC ONE (01:15)
[2018-12-14] MEDS: MetFORMIN HCL 500 MG TABLET PO SCH ×2 (07:14→16:05)
[2018-12-14 08:23] VITALS: BP 114/68
[2018-12-14] MEDS: METOPROLOL TARTRATE 25 MG TABLET PO SCH ×2 (09:02→16:06)
[2018-12-14] MEDS: LISINOPRIL 5 MG TABLET PO SCH (09:02)
[2018-12-14] MEDS: LORazepam 2 MG TABLET PO PRN (09:02)
[2018-12-14 16:00] VITALS: BP 111/76
[2018-12-14 16:11] VITALS: BP 101/71
[2018-12-14 17:12] LABS: GLUCOMETER DEV NAME(LOC) BV2X.; GLUCOSE,POINT OF CARE 127 MG/DL (70-110)
[2018-12-14] MEDS: PRAVASTATIN SODIUM 20 MG TABLET PO SCH (20:25)
[2018-12-14] MEDS ORDERED: PALIPERIDONE 6 MG ER TABLET PO SCH (21:00)
[2018-12-15 04:05] VITALS: BP 108/68
[2018-12-15 06:27] LABS: GLUCOMETER DEV NAME(LOC) BV2X.; GLUCOSE,POINT OF CARE 88 MG/DL (70-110)
[2018-12-15] MEDS: MetFORMIN HCL 500 MG TABLET PO SCH ×2 (06:45→16:12)
[2018-12-15 08:07] LABS: HEMOGLOBIN A1C 6.5 % (4.5-6.2)
[2018-12-15 08:20] VITALS: BP 115/71
[2018-12-15 08:20] LABS: CHOL/HDL RATIO 3.3 (4.2-7.3); FREE T4 (FREE THYROXINE) 0.76 ng/dL (0.76-1.46); MAGNESIUM 1.8 mg/dL (1.80-2.40); THYROID STIMULATING HORMONE 0.31 uIU/mL (0.36-3.74)
[2018-12-15] MEDS ORDERED: METOPROLOL SUCCINATE 25 MG ER TABLET PO SCH (09:00)
[2018-12-15] MEDS: LISINOPRIL 5 MG TABLET PO SCH (09:22)
[2018-12-15] MEDS: LORazepam 2 MG TABLET PO PRN (12:26)
[2018-12-15 16:09] VITALS: BP 121/83
[2018-12-15 16:31] LABS: GLUCOMETER DEV NAME(LOC) BV2X.; GLUCOSE,POINT OF CARE 111 MG/DL (70-110)
[2018-12-15] MEDS ORDERED: BENZOCAINE 10% 7 GM GEL TP PRN (18:30)
[2018-12-15] MEDS ORDERED: ACETAMINOPHEN 325 MG TABLET PO PRN (18:30)
[2018-12-15] MEDS: PRAVASTATIN SODIUM 20 MG TABLET PO SCH (20:10)
[2018-12-15 20:20] LABS: GLUCOMETER DEV NAME(LOC) BV2X.; GLUCOSE,POINT OF CARE 104 MG/DL (70-110)
[2018-12-15] MEDS ORDERED: PALIPERIDONE 3 MG ER TABLET PO SCH (21:00)
[2018-12-16 01:37] VITALS: BP 118/70
[2018-12-16] MEDS: ZOLPIDEM TARTRATE 10 MG TABLET PO PRN (02:49)
[2018-12-16 06:21] LABS: GLUCOMETER DEV NAME(LOC) BV2X.; GLUCOSE,POINT OF CARE 95 MG/DL (70-110)
[2018-12-16] MEDS: MetFORMIN HCL 500 MG TABLET PO SCH ×2 (07:14→16:07)
[2018-12-16] MEDS: METOPROLOL SUCCINATE 25 MG ER TABLET PO SCH (08:50)
[2018-12-16 09:06] VITALS: BP 118/71
[2018-12-16] MEDS: LISINOPRIL 5 MG TABLET PO SCH (09:08)
[2018-12-16 16:10] VITALS: BP 115/81
[2018-12-16] MEDS: LORazepam 2 MG TABLET PO PRN (17:53)
[2018-12-16 18:11] LABS: GLUCOMETER DEV NAME(LOC) BV2X.; GLUCOSE,POINT OF CARE 119 MG/DL (70-110)
[2018-12-16] MEDS: PALIPERIDONE 6 MG ER TABLET PO SCH (20:05)
[2018-12-16] MEDS: PRAVASTATIN SODIUM 20 MG TABLET PO SCH (20:06)
[2018-12-17 01:58] VITALS: BP 110/68
[2018-12-17 06:22] LABS: GLUCOMETER DEV NAME(LOC) BV2X.; GLUCOSE,POINT OF CARE 132 MG/DL (70-110)
[2018-12-17] MEDS: MetFORMIN HCL 500 MG TABLET PO SCH ×2 (06:50→16:38)
[2018-12-17 08:30] VITALS: BP 116/79
[2018-12-17] MEDS: LISINOPRIL 5 MG TABLET PO SCH (09:04)
[2018-12-17] MEDS: METOPROLOL SUCCINATE 25 MG ER TABLET PO SCH (09:07)
[2018-12-17 16:11] VITALS: BP 123/75
[2018-12-17 16:21] LABS: GLUCOMETER DEV NAME(LOC) BV2X.; GLUCOSE,POINT OF CARE 109 MG/DL (70-110)
[2018-12-17] MEDS: LORazepam 2 MG TABLET PO PRN (16:47)
[2018-12-17] MEDS: PRAVASTATIN SODIUM 20 MG TABLET PO SCH (21:13)
[2018-12-17] MEDS: PALIPERIDONE 6 MG ER TABLET PO SCH (21:13)
[2018-12-18 00:29] VITALS: BP 118/70
[2018-12-18 06:51] LABS: GLUCOMETER DEV NAME(LOC) BV2X.; GLUCOSE,POINT OF CARE 92 MG/DL (70-110)
[2018-12-18] MEDS: MetFORMIN HCL 500 MG TABLET PO SCH ×2 (06:53→16:44)
[2018-12-18 08:00] VITALS: BP 110/72
[2018-12-18] MEDS: LISINOPRIL 5 MG TABLET PO SCH (08:34)
[2018-12-18] MEDS: PALIPERIDONE PALMITATE 234 MG/1.5 ML SYRINGE IM ONE ×3 (08:35→10:41)
[2018-12-18] MEDS: METOPROLOL SUCCINATE 25 MG ER TABLET PO SCH (08:35)
[2018-12-18 16:10] VITALS: BP 114/63
[2018-12-18 16:16] LABS: GLUCOMETER DEV NAME(LOC) BV2X.; GLUCOSE,POINT OF CARE 116 MG/DL (70-110)
[2018-12-18] MEDS: PALIPERIDONE 6 MG ER TABLET PO SCH (20:40)
[2018-12-18] MEDS: PRAVASTATIN SODIUM 20 MG TABLET PO SCH (20:40)
[2018-12-18] MEDS: ZOLPIDEM TARTRATE 10 MG TABLET PO PRN (22:27)
[2018-12-19 00:10] VITALS: BP 122/78
[2018-12-19] MEDS: LORazepam 2 MG TABLET PO PRN (00:27)
[2018-12-19 06:21] LABS: GLUCOMETER DEV NAME(LOC) BV2X.; GLUCOSE,POINT OF CARE 94 MG/DL (70-110)
[2018-12-19] MEDS: MetFORMIN HCL 500 MG TABLET PO SCH ×2 (06:31→16:33)
[2018-12-19] MEDS: LISINOPRIL 5 MG TABLET PO SCH (08:24)
[2018-12-19] MEDS: METOPROLOL SUCCINATE 25 MG ER TABLET PO SCH (08:25)
[2018-12-19 08:28] VITALS: BP 123/82
[2018-12-19 11:47] LABS: GLUCOMETER DEV NAME(LOC) BV2X.; GLUCOSE,POINT OF CARE 116 MG/DL (70-110)
[2018-12-19] MEDS ORDERED: METO25XL PO (15:18)
[2018-12-19] MEDS ORDERED: PALI6 PO (15:18)
[2018-12-19] MEDS ORDERED: PALI234D IM (15:18)
[2018-12-19] MEDS ORDERED: METF-960 PO (15:18)
[2018-12-19 16:42] LABS: GLUCOMETER DEV NAME(LOC) BV2X.; GLUCOSE,POINT OF CARE 117 MG/DL (70-110)
[2018-12-19 16:52] VITALS: BP 100/63
== END 2018-12-19 18:00 | disposition home or self-care (01) | DRG 885 ==
LOC: EMS 16:36 → B2X 19:00
PROVIDERS: ADMIT Psychiatry & Neurology Psychiatry; ATTEND Psychiatry & Neurology Psychiatry
DX: F20.0 Paranoid schizophrenia (principal); E11.9 Type 2 diabetes mellitus without complications; E78.5 Hyperlipidemia, unspecified; F12.90 Cannabis use, unspecified, uncomplicated; F17.210 Nicotine dependence, cigarettes, uncomplicated; I10 Essential (primary) hypertension; F15.90 Other stimulant use, unspecified, uncomplicated; Z59.0 Homelessness; Z91.19 Patient's noncompliance with other medical treatment and regimen; Z79.899 Other long term (current) drug therapy; Z71.6 Tobacco abuse counseling
CPT/HCPCS: 80074; 83036; 83735; 84439; 84443; G0480

== ENCOUNTER 2019-05-18 15:55 | Emergency (ER) | payer MEDICARE ==
[~2019-05-18] VITALS: Ht 170.2 cm; Wt 65.0 kg
[~2019-05-18 15:55] MED LIST changes: +METO25XL PO; -METO50 PO; +PALI6 PO; -RISP3 PO
[2019-05-18 16:13] LABS: GLUCOSE,POINT OF CARE 104 MG/DL (70-110)
[2019-05-18 17:24] LABS: EOSINOPHILS % (AUTO) 3.1 % (1.0-6.0); HEMATOCRIT 42.4 % (41-53); HEMOGLOBIN 14.1 g/dL (13.5-17.5); LYMPHOCYTES # (AUTO) 1.7 K/uL (1.0-4.8); LYMPHOCYTES % (AUTO) 26.9 % (22.0-44.0); MEAN CORPUSCULAR HEMOGLOBIN 31.6 pg (26.0-34.0); MEAN CORPUSCULAR HGB CONC 33.4 G/dL (31.0-37.0); MEAN CORPUSCULAR VOLUME 95 fL (80-100); MONOCYTES # (AUTO) 0.6 K/uL (0.1-1.0); MONOCYTES % (AUTO) 10.2 % (2.0-9.0); NEUTROPHILS # (AUTO) 3.6 K/uL (1.8-7.7); NEUTROPHILS % (AUTO) 58.8 % (40.0-70.0); PLATELET COUNT (AUTO) 279 K/uL (150-450); RED BLOOD CELL COUNT(AUTO) 4.47 MIL/uL (4.50-5.90); RED CELL DISTRIBUTION WIDTH 13.4 % (11.5-14.5)
[2019-05-18 17:35] LABS: ANION GAP 8 mmol/L (8-16); CALCIUM, TOTAL 9.7 mg/dL (8.8-10.5); CARBON DIOXIDE 29 mmol/L (22-29); CHLORIDE 104 mmol/L (98-107); GLOMERULAR FILTR. RATE CALC > 60 mL/min (>60); GLUCOSE,RANDOM 81 mg/dL (70-110); POTASSIUM 4.3 mmol/L (3.5-5.1); SODIUM SERUM 141 mmol/L (136-145); UREA NITROGEN, BLOOD 15 mg/dL (7-18)
[2019-05-18 17:42] LABS: ALANINE AMINOTRANSFERASE 28 U/L (12-78); ALBUMIN 3.9 g/dL (3.4-5.0); ALKALINE PHOSPHATASE 108 U/L (46-116); ASPARTATE AMINOTRANSFERASE 13 U/L (15-37); BILIRUBIN,TOTAL 0.1 mg/dL (0.1-1.0); TOTAL PROTEIN, SERUM 7.1 g/dL (6.4-8.2)
[2019-05-18] MEDS ORDERED: HALOPERIDOL 5 MG TABLET PO ONE (19:15)
[2019-05-18] MEDS ORDERED: LORazepam 1 MG TABLET PO ONE (19:15)
[2019-05-18 20:00] VITALS: BP 125/68
== END 2019-05-18 21:00 | disposition home or self-care (01) ==
LOC: EMS 15:56
DX: I10 Essential (primary) hypertension (principal); F20.9 Schizophrenia, unspecified; E11.9 Type 2 diabetes mellitus without complications; F15.90 Other stimulant use, unspecified, uncomplicated; F17.210 Nicotine dependence, cigarettes, uncomplicated; Z79.84 Long term (current) use of oral hypoglycemic drugs; Z79.899 Other long term (current) drug therapy
CPT/HCPCS: 36415; 80053; 82962; 85025; 99283; G0480

== ENCOUNTER 2020-01-23 17:28 | Emergency (ER) | payer MEDICARE ==
[~2020-01-23] VITALS: Ht 170.2 cm; Wt 59.1 kg
[~2020-01-23 17:28] MED LIST changes: +OLAN10TA6 PO; -PALI6 PO
[2020-01-23 19:14] LABS: GLUCOSE,POINT OF CARE 94 MG/DL (70-110)
[2020-01-23 21:33] VITALS: BP 129/75
== END 2020-01-23 21:39 | disposition home or self-care (01) ==
LOC: EMS 17:56
DX: Z59.0 Homelessness (principal); I10 Essential (primary) hypertension; E11.9 Type 2 diabetes mellitus without complications; F17.210 Nicotine dependence, cigarettes, uncomplicated; F15.90 Other stimulant use, unspecified, uncomplicated; Z79.899 Other long term (current) drug therapy
CPT/HCPCS: 82948

== ENCOUNTER 2020-10-17 17:44 | Emergency (ER) | payer MEDICARE, OTHER ==
[~2020-10-17] VITALS: Ht 170.2 cm; Wt 56.0 kg
[~2020-10-17 17:44] MED LIST changes: -LISI-622 PO; +LISI-809 PO; +OLAN10TA26 PO; -OLAN10TA6 PO
[2020-10-17 18:55] VITALS: BP 128/76
== END 2020-10-17 19:07 | disposition home or self-care (01) ==
LOC: EMS 17:50
DX: F59 Unspecified behavioral syndromes associated with physiological disturbances and physical factors (principal); F25.9 Schizoaffective disorder, unspecified; E11.9 Type 2 diabetes mellitus without complications; I10 Essential (primary) hypertension; F17.210 Nicotine dependence, cigarettes, uncomplicated; F19.90 Other psychoactive substance use, unspecified, uncomplicated; Z59.0 Homelessness; Z76.0 Encounter for issue of repeat prescription; Z79.84 Long term (current) use of oral hypoglycemic drugs
CPT/HCPCS: 99281; 99283

== ENCOUNTER 2021-02-06 08:27 | Inpatient (IN) | payer MEDICARE, MEDICAID ==
[~2021-02-06] VITALS: Ht 170.2 cm; Wt 67.1 kg
[~2021-02-06 08:27] MED LIST changes: -LISI-809 PO; +LISI5TAB21 PO; +METF-1211 PO; -METF-960 PO
[2021-02-06] MEDS ORDERED: LORazepam 1 MG TABLET PO ONE (10:00)
[2021-02-06] MEDS ORDERED: HALOPERIDOL 5 MG TABLET PO ONE (10:00)
[2021-02-06 10:06] LABS: BASOPHILS % (AUTO) 0.8 % (0.0-2.0); EOSINOPHILS % (AUTO) 4.4 % (1.0-6.0); HEMATOCRIT 45.5 % (41-53); HEMOGLOBIN 15.1 g/dL (13.5-17.5); LYMPHOCYTES # (AUTO) 1.9 K/uL (1.0-4.8); LYMPHOCYTES % (AUTO) 27.9 % (22.0-44.0); MEAN CORPUSCULAR HEMOGLOBIN 31.4 pg (26.0-34.0); MEAN CORPUSCULAR HGB CONC 33.3 G/dL (31.0-37.0); MEAN CORPUSCULAR VOLUME 94 fL (80-100); MONOCYTES # (AUTO) 0.7 K/uL (0.1-1.0); MONOCYTES % (AUTO) 10.4 % (2.0-9.0); NEUTROPHILS # (AUTO) 3.8 K/uL (1.8-7.7); NEUTROPHILS % (AUTO) 56.5 % (40.0-70.0); PLATELET COUNT (AUTO) 267 K/uL (150-450); RED BLOOD CELL COUNT(AUTO) 4.82 MIL/uL (4.50-5.90); RED CELL DISTRIBUTION WIDTH 13.6 % (11.5-14.5)
[2021-02-06 10:13] LABS: ANION GAP 0 mmol/L (8-16); CALCIUM, TOTAL 9.9 mg/dL (8.8-10.5); CARBON DIOXIDE 37 mmol/L (22-29); CHLORIDE 105 mmol/L (98-107); CREATININE 0.73 mg/dL (0.60-1.30); GLOMERULAR FILTR. RATE CALC > 60 mL/min (>60); GLUCOSE,RANDOM 93 mg/dL (70-110); POTASSIUM 4.7 mmol/L (3.5-5.1); SODIUM SERUM 142 mmol/L (136-145); UREA NITROGEN, BLOOD 15 mg/dL (7-18)
[2021-02-06 10:15] LABS: AMPHET/METH SCREEN,URINE NEGATIVE (NEGATIVE); BARBITURATE SCREEN, URINE NEGATIVE (NEGATIVE); BENZODIAZEPINES SCREEN,URINE NEGATIVE (NEGATIVE); CANNABINOID SCREEN,URINE NEGATIVE (NEGATIVE); COCAINE SCREEN,URINE NEGATIVE (NEGATIVE); METHADONE SCREEN, URINE NEGATIVE (NEGATIVE); OPIATE SCREEN,URINE NEGATIVE (NEGATIVE); PHENCYCLIDINE SCREEN,URINE NEGATIVE (NEGATIVE)
[2021-02-06 10:19] LABS: ALANINE AMINOTRANSFERASE 55 U/L (12-78); ALBUMIN 3.9 g/dL (3.4-5.0); ALKALINE PHOSPHATASE 122 U/L (46-116); ASPARTATE AMINOTRANSFERASE 30 U/L (15-37); BILIRUBIN,TOTAL 0.2 mg/dL (0.1-1.0); TOTAL PROTEIN, SERUM 7.5 g/dL (6.4-8.2)
[2021-02-06 10:34] LABS: COVID AG,FIA SOURCE NASOPHARYNGEAL
[2021-02-06] MEDS ORDERED: PRAV20TA4 PO (12:04)
[2021-02-06] MEDS ORDERED: ACETAMINOPHEN 325 MG TABLET PO PRN (12:15)
[2021-02-06 20:14] VITALS: BP 149/76
[2021-02-06] MEDS ORDERED: -PHARMACY VACCINE NOTE- MISC ONE (20:30)
[2021-02-06] MEDS ORDERED: INFLUENZA VIRUS VACCINE QVS 2021-22 (6MO+)/PF 60 MCG/0.5 ML SYRINGE IM. ONE (20:30)
[2021-02-07 00:21] VITALS: BP 123/67
[2021-02-07] MEDS: MetFORMIN HCL 500 MG TABLET PO SCH ×2 (06:44→16:35)
[2021-02-07] MEDS ORDERED: MAG HYDROX/AL HYDROX/SIMETH ES 30 ML SUSPENSION UDCUP PO PRN (06:45)
[2021-02-07] MEDS ORDERED: PETROLATUM,WHITE 28 GM JELLY TP PRN (06:45)
[2021-02-07] MEDS ORDERED: MAGNESIUM HYDROXIDE SUSPENSION 30 ML UDCUP PO PRN (06:45)
[2021-02-07] MEDS ORDERED: ALBUTEROL SULFATE HFA 90 MCG/PUFF 8 GM INHALER IH PRN (06:45)
[2021-02-07] MEDS ORDERED: ACETAMINOPHEN 325 MG TABLET PO PRN (06:45)
[2021-02-07] MEDS ORDERED: CloNIDine HCL 0.1 MG TABLET PO PRN (06:45)
[2021-02-07] MEDS ORDERED: DOCUSATE SODIUM 100 MG CAPSULE PO PRN (06:45)
[2021-02-07] MEDS ORDERED: IBUPROFEN 400 MG TABLET PO PRN (06:45)
[2021-02-07] MEDS ORDERED: GuaiFENesin/D-METHORPHAN [SUGAR-FREE] 200-20MG/10 ML SYRUP UDCUP PO PRN (06:45)
[2021-02-07] MEDS ORDERED: ONDANSETRON HCL 4 MG TABLET PO PRN (06:45)
[2021-02-07] MEDS ORDERED: NICOTINE 14 MG/24 HOUR PATCH TD PRN (06:45)
[2021-02-07] MEDS ORDERED: LOPERAMIDE HCL 2 MG CAPSULE PO PRN (06:45)
[2021-02-07 07:53] LABS: BASOPHILS % (AUTO) 0.7 % (0.0-2.0); EOSINOPHILS % (AUTO) 4.5 % (1.0-6.0); HEMATOCRIT 45.6 % (41-53); HEMOGLOBIN 15.1 g/dL (13.5-17.5); LYMPHOCYTES # (AUTO) 1.6 K/uL (1.0-4.8); LYMPHOCYTES % (AUTO) 30.4 % (22.0-44.0); MEAN CORPUSCULAR HEMOGLOBIN 31.5 pg (26.0-34.0); MEAN CORPUSCULAR HGB CONC 33.2 G/dL (31.0-37.0); MEAN CORPUSCULAR VOLUME 95 fL (80-100); MONOCYTES # (AUTO) 0.5 K/uL (0.1-1.0); MONOCYTES % (AUTO) 9.7 % (2.0-9.0); NEUTROPHILS # (AUTO) 2.9 K/uL (1.8-7.7); NEUTROPHILS % (AUTO) 54.7 % (40.0-70.0); PLATELET COUNT (AUTO) 271 K/uL (150-450)
[2021-02-07 08:05] LABS: HEMOGLOBIN A1C 6.3 % (3.8-5.6)
[2021-02-07 08:19] LABS: ALANINE AMINOTRANSFERASE 88 U/L (12-78); ALBUMIN 3.4 g/dL (3.4-5.0); ALKALINE PHOSPHATASE 105 U/L (46-116); ANION GAP 11 mmol/L (8-16); ASPARTATE AMINOTRANSFERASE 47 U/L (15-37); BILIRUBIN,TOTAL 0.2 mg/dL (0.1-1.0); CALCIUM, TOTAL 9.7 mg/dL (8.8-10.5); CARBON DIOXIDE 29 mmol/L (22-29); CHLORIDE 105 mmol/L (98-107); CHOL/HDL RATIO 3.1 (4.2-7.3); CHOLESTEROL 212 mg/dL (131-200); CREATININE 0.92 mg/dL (0.60-1.30); FREE T4 (FREE THYROXINE) 0.75 ng/dL (0.76-1.46); GLOMERULAR FILTR. RATE CALC > 60 mL/min (>60); GLUCOSE,RANDOM 118 mg/dL (70-110); HDL CHOLESTEROL 68 mg/dL (40-60); LDL CHOL (CALC.) 125 mg/dL (0-130); POTASSIUM 4.8 mmol/L (3.5-5.1); SODIUM SERUM 145 mmol/L (136-145); THYROID STIMULATING HORMONE 0.35 uIU/mL (0.36-3.74); TOTAL PROTEIN, SERUM 6.8 g/dL (6.4-8.2); TRIGLYCERIDES 96 mg/dL (15-150); UREA NITROGEN, BLOOD 18 mg/dL (7-18)
[2021-02-07 08:20] VITALS: BP 114/74
[2021-02-07] MEDS: LISINOPRIL 5 MG TABLET PO SCH (08:51)
[2021-02-07] MEDS: METOPROLOL SUCCINATE 25 MG ER TABLET PO SCH (08:52)
[2021-02-07] MEDS: LORazepam 2 MG TABLET PO PRN (10:02)
[2021-02-07] MEDS: HALOPERIDOL 5 MG TABLET PO PRN (10:02)
[2021-02-07] MEDS: OLANZapine 10 MG TABLET PO SCH ×2 (13:51→20:16)
[2021-02-07 17:51] VITALS: BP 115/78
[2021-02-07] MEDS: PRAVASTATIN SODIUM 20 MG TABLET PO SCH (20:16)
[2021-02-08] MEDS: HALOPERIDOL 5 MG TABLET PO PRN ×2 (03:41→17:07)
[2021-02-08] MEDS: LORazepam 2 MG TABLET PO PRN ×2 (04:00→17:07)
[2021-02-08 05:12] VITALS: BP 112/68
[2021-02-08] MEDS ORDERED: DiphenhydrAMINE HCL 50 MG/ML VIAL IM ONE (05:30)
[2021-02-08] MEDS ORDERED: LORazepam 2 MG/ML VIAL IM ONE (05:30)
[2021-02-08] MEDS ORDERED: HALOPERIDOL LACTATE 5 MG/ML VIAL IM ONE (05:30)
[2021-02-08] MEDS: MetFORMIN HCL 500 MG TABLET PO SCH ×2 (06:51→16:36)
[2021-02-08 08:01] VITALS: BP 124/79
[2021-02-08] MEDS: LISINOPRIL 5 MG TABLET PO SCH (08:05)
[2021-02-08] MEDS: OLANZapine 10 MG TABLET PO SCH ×2 (08:05→20:12)
[2021-02-08] MEDS: METOPROLOL SUCCINATE 25 MG ER TABLET PO SCH (08:06)
[2021-02-08 16:05] VITALS: BP 119/71
[2021-02-08] MEDS: PRAVASTATIN SODIUM 20 MG TABLET PO SCH (20:12)
[2021-02-09 05:46] VITALS: BP 116/68
[2021-02-09] MEDS: MetFORMIN HCL 500 MG TABLET PO SCH ×2 (06:37→16:33)
[2021-02-09] MEDS: OLANZapine 10 MG TABLET PO SCH ×2 (07:52→20:52)
[2021-02-09] MEDS: LISINOPRIL 5 MG TABLET PO SCH (07:53)
[2021-02-09] MEDS: LORazepam 2 MG TABLET PO PRN ×2 (07:53→17:20)
[2021-02-09] MEDS: METOPROLOL SUCCINATE 25 MG ER TABLET PO SCH (07:53)
[2021-02-09] MEDS: HALOPERIDOL 5 MG TABLET PO PRN (07:53)
[2021-02-09 08:19] VITALS: BP 142/75
[2021-02-09 16:41] VITALS: BP 133/83
[2021-02-09] MEDS: PRAVASTATIN SODIUM 20 MG TABLET PO SCH (20:52)
[2021-02-10] MEDS: HALOPERIDOL 5 MG TABLET PO PRN ×3 (00:58→18:30)
[2021-02-10] MEDS: LORazepam 2 MG TABLET PO PRN ×3 (00:58→18:30)
[2021-02-10] MEDS: MetFORMIN HCL 500 MG TABLET PO SCH ×2 (06:50→16:13)
[2021-02-10 08:32] VITALS: BP 141/80
[2021-02-10] MEDS: OLANZapine 10 MG TABLET PO SCH ×2 (08:54→20:34)
[2021-02-10] MEDS: METOPROLOL SUCCINATE 25 MG ER TABLET PO SCH (08:55)
[2021-02-10] MEDS: LISINOPRIL 5 MG TABLET PO SCH (08:55)
[2021-02-10] MEDS: PALIPERIDONE PALMITATE 234 MG/1.5 ML SYRINGE IM SCH (09:46)
[2021-02-10 16:41] VITALS: BP 118/63
[2021-02-10] MEDS: PRAVASTATIN SODIUM 20 MG TABLET PO SCH (20:35)
[2021-02-11] MEDS: ZOLPIDEM TARTRATE 10 MG TABLET PO PRN ×2 (00:20→20:10)
[2021-02-11 00:43] VITALS: BP 107/72
[2021-02-11] MEDS: HALOPERIDOL 5 MG TABLET PO PRN ×2 (06:41→18:07)
[2021-02-11] MEDS: LORazepam 2 MG TABLET PO PRN ×2 (06:41→18:07)
[2021-02-11] MEDS: MetFORMIN HCL 500 MG TABLET PO SCH ×2 (06:41→17:05)
[2021-02-11 08:16] VITALS: BP 129/68
[2021-02-11] MEDS: LISINOPRIL 5 MG TABLET PO SCH (08:33)
[2021-02-11] MEDS: OLANZapine 10 MG TABLET PO SCH ×2 (08:33→20:08)
[2021-02-11] MEDS: METOPROLOL SUCCINATE 25 MG ER TABLET PO SCH (08:37)
[2021-02-11 16:00] VITALS: BP 107/70
[2021-02-11] MEDS: PRAVASTATIN SODIUM 20 MG TABLET PO SCH (20:08)
[2021-02-12] MEDS: LORazepam 2 MG TABLET PO PRN ×3 (00:33→21:16)
[2021-02-12] MEDS: HALOPERIDOL 5 MG TABLET PO PRN ×3 (00:33→16:46)
[2021-02-12] MEDS ORDERED: LORazepam 2 MG/ML VIAL ONE ×2 (01:34→23:29)
[2021-02-12] MEDS ORDERED: DiphenhydrAMINE HCL 50 MG/ML VIAL ONE ×2 (01:35→23:30)
[2021-02-12 01:40] VITALS: BP 135/85
[2021-02-12] MEDS ORDERED: DiphenhydrAMINE HCL 50 MG/ML VIAL IM ONE ×2 (01:45→23:30)
[2021-02-12] MEDS ORDERED: LORazepam 2 MG/ML VIAL IM ONE ×2 (01:45→23:30)
[2021-02-12] MEDS ORDERED: HALOPERIDOL LACTATE 5 MG/ML VIAL IM ONE ×2 (01:45→23:30)
[2021-02-12] MEDS: MetFORMIN HCL 500 MG TABLET PO SCH ×2 (06:33→16:46)
[2021-02-12] MEDS: LISINOPRIL 5 MG TABLET PO SCH (07:56)
[2021-02-12] MEDS: METOPROLOL SUCCINATE 25 MG ER TABLET PO SCH (07:56)
[2021-02-12] MEDS: OLANZapine 10 MG TABLET PO SCH ×2 (07:57→21:16)
[2021-02-12 09:06] VITALS: BP 117/78
[2021-02-12 16:30] VITALS: BP 122/78
[2021-02-12] MEDS: PRAVASTATIN SODIUM 20 MG TABLET PO SCH (21:16)
[2021-02-12] MEDS: ZOLPIDEM TARTRATE 10 MG TABLET PO PRN (21:17)
[2021-02-12] MEDS ORDERED: HALOPERIDOL LACTATE 5 MG/ML VIAL ONE (23:30)
[2021-02-13] MEDS: MetFORMIN HCL 500 MG TABLET PO SCH ×2 (06:29→17:00)
[2021-02-13 08:20] VITALS: BP 131/77
[2021-02-13] MEDS: METOPROLOL SUCCINATE 25 MG ER TABLET PO SCH (09:22)
[2021-02-13] MEDS: LISINOPRIL 5 MG TABLET PO SCH (09:22)
[2021-02-13] MEDS: OLANZapine 10 MG TABLET PO SCH ×2 (09:23→21:00)
[2021-02-13 18:28] VITALS: BP 105/59
[2021-02-13] MEDS: PRAVASTATIN SODIUM 20 MG TABLET PO SCH (21:00)
[2021-02-14 00:25] VITALS: BP 127/86
[2021-02-14] MEDS: MetFORMIN HCL 500 MG TABLET PO SCH ×2 (06:23→16:04)
[2021-02-14 08:22] VITALS: BP 128/75
[2021-02-14] MEDS: METOPROLOL SUCCINATE 25 MG ER TABLET PO SCH (08:28)
[2021-02-14] MEDS: HALOPERIDOL 5 MG TABLET PO PRN (08:28)
[2021-02-14] MEDS: OLANZapine 10 MG TABLET PO SCH ×2 (08:28→20:24)
[2021-02-14] MEDS: LORazepam 2 MG TABLET PO PRN (08:28)
[2021-02-14] MEDS: LISINOPRIL 5 MG TABLET PO SCH (08:28)
[2021-02-14 16:24] VITALS: BP 130/76
[2021-02-14] MEDS: PRAVASTATIN SODIUM 20 MG TABLET PO SCH (20:24)
[2021-02-15 00:10] VITALS: BP 110/65
[2021-02-15] MEDS: MetFORMIN HCL 500 MG TABLET PO SCH ×2 (06:21→16:23)
[2021-02-15 08:30] VITALS: BP 141/84
[2021-02-15] MEDS: LORazepam 2 MG TABLET PO PRN ×2 (08:53→16:35)
[2021-02-15] MEDS: HALOPERIDOL 5 MG TABLET PO PRN ×2 (08:53→16:35)
[2021-02-15] MEDS: OLANZapine 10 MG TABLET PO SCH ×2 (08:53→20:30)
[2021-02-15] MEDS: LISINOPRIL 5 MG TABLET PO SCH (08:53)
[2021-02-15] MEDS: METOPROLOL SUCCINATE 25 MG ER TABLET PO SCH (08:53)
[2021-02-15 16:07] VITALS: BP 111/76
[2021-02-15] MEDS: PRAVASTATIN SODIUM 20 MG TABLET PO SCH (20:31)
[2021-02-15] MEDS: ZOLPIDEM TARTRATE 10 MG TABLET PO PRN (20:32)
[2021-02-16] MEDS: HALOPERIDOL 5 MG TABLET PO PRN (01:33)
[2021-02-16] MEDS: LORazepam 2 MG TABLET PO PRN ×3 (01:33→20:07)
[2021-02-16 01:38] VITALS: BP 130/74
[2021-02-16] MEDS: MetFORMIN HCL 500 MG TABLET PO SCH ×2 (06:53→16:23)
[2021-02-16 08:19] VITALS: BP 122/79
[2021-02-16] MEDS: OLANZapine 10 MG TABLET PO SCH ×2 (08:59→20:07)
[2021-02-16] MEDS: METOPROLOL SUCCINATE 25 MG ER TABLET PO SCH (09:00)
[2021-02-16] MEDS: LISINOPRIL 5 MG TABLET PO SCH (09:01)
[2021-02-16 16:05] VITALS: BP 129/80
[2021-02-16] MEDS: PRAVASTATIN SODIUM 20 MG TABLET PO SCH (20:07)
[2021-02-16] MEDS: ZOLPIDEM TARTRATE 10 MG TABLET PO PRN (20:08)
[2021-02-17 00:10] VITALS: BP 105/65
[2021-02-17] MEDS: MetFORMIN HCL 500 MG TABLET PO SCH ×2 (06:45→16:39)
[2021-02-17] MEDS: OLANZapine 10 MG TABLET PO SCH ×2 (08:44→20:30)
[2021-02-17] MEDS: METOPROLOL SUCCINATE 25 MG ER TABLET PO SCH (08:44)
[2021-02-17] MEDS: LISINOPRIL 5 MG TABLET PO SCH (08:44)
[2021-02-17 10:06] VITALS: BP 110/70
[2021-02-17 16:04] VITALS: BP 95/65
[2021-02-17 19:46] VITALS: BP 107/73
[2021-02-17] MEDS: PRAVASTATIN SODIUM 20 MG TABLET PO SCH (20:30)
[2021-02-18 00:18] VITALS: BP 105/62
[2021-02-18] MEDS: MetFORMIN HCL 500 MG TABLET PO SCH ×2 (06:33→17:20)
[2021-02-18] MEDS: METOPROLOL SUCCINATE 25 MG ER TABLET PO SCH (08:26)
[2021-02-18] MEDS: OLANZapine 10 MG TABLET PO SCH ×2 (08:26→20:48)
[2021-02-18] MEDS: LISINOPRIL 5 MG TABLET PO SCH (08:26)
[2021-02-18 08:31] VITALS: BP 128/72
[2021-02-18 13:41] LABS: GLUCOMETER DEV NAME(LOC) POC.BV
[2021-02-18 16:03] VITALS: BP 107/62
[2021-02-18] MEDS: PRAVASTATIN SODIUM 20 MG TABLET PO SCH (20:48)
[2021-02-18] MEDS: LORazepam 2 MG TABLET PO PRN (22:30)
[2021-02-18] MEDS: HALOPERIDOL 5 MG TABLET PO PRN (22:30)
[2021-02-19 02:18] VITALS: BP 120/68
[2021-02-19] MEDS: MetFORMIN HCL 500 MG TABLET PO SCH ×2 (06:59→16:24)
[2021-02-19] MEDS: OLANZapine 10 MG TABLET PO SCH ×2 (08:17→20:20)
[2021-02-19] MEDS: METOPROLOL SUCCINATE 25 MG ER TABLET PO SCH (08:17)
[2021-02-19] MEDS: LISINOPRIL 5 MG TABLET PO SCH (08:17)
[2021-02-19 08:30] VITALS: BP 106/76
[2021-02-19 16:19] VITALS: BP 109/71
[2021-02-19] MEDS: PRAVASTATIN SODIUM 20 MG TABLET PO SCH (20:20)
[2021-02-20 01:03] VITALS: BP 104/64
[2021-02-20] MEDS: MetFORMIN HCL 500 MG TABLET PO SCH ×2 (06:30→16:04)
[2021-02-20 08:05] VITALS: BP 122/79
[2021-02-20] MEDS: METOPROLOL SUCCINATE 25 MG ER TABLET PO SCH (09:28)
[2021-02-20] MEDS: OLANZapine 10 MG TABLET PO SCH ×2 (09:28→20:00)
[2021-02-20] MEDS: LISINOPRIL 5 MG TABLET PO SCH (09:29)
[2021-02-20 15:40] VITALS: BP 139/74
[2021-02-20] MEDS: HALOPERIDOL 5 MG TABLET PO PRN (16:05)
[2021-02-20] MEDS: PRAVASTATIN SODIUM 20 MG TABLET PO SCH (20:00)
[2021-02-20] MEDS: ZOLPIDEM TARTRATE 10 MG TABLET PO PRN (22:23)
[2021-02-21 04:03] VITALS: BP 106/65
[2021-02-21] MEDS: MetFORMIN HCL 500 MG TABLET PO SCH ×2 (06:28→16:03)
[2021-02-21 08:28] VITALS: BP 126/76
[2021-02-21] MEDS: METOPROLOL SUCCINATE 25 MG ER TABLET PO SCH (08:39)
[2021-02-21] MEDS: OLANZapine 10 MG TABLET PO SCH ×2 (08:40→21:26)
[2021-02-21] MEDS: LISINOPRIL 5 MG TABLET PO SCH (08:41)
[2021-02-21] MEDS: HALOPERIDOL 5 MG TABLET PO PRN (16:07)
[2021-02-21] MEDS: LORazepam 2 MG TABLET PO PRN (16:07)
[2021-02-21 16:41] VITALS: BP 109/67
[2021-02-21] MEDS: PRAVASTATIN SODIUM 20 MG TABLET PO SCH (21:26)
[2021-02-22 01:34] VITALS: BP 128/78
[2021-02-22] MEDS: MetFORMIN HCL 500 MG TABLET PO SCH ×2 (06:57→16:20)
[2021-02-22 08:15] VITALS: BP 117/77
[2021-02-22] MEDS: LISINOPRIL 5 MG TABLET PO SCH (08:18)
[2021-02-22] MEDS: METOPROLOL SUCCINATE 25 MG ER TABLET PO SCH (08:18)
[2021-02-22] MEDS: OLANZapine 10 MG TABLET PO SCH ×2 (08:21→20:20)
[2021-02-22 16:05] VITALS: BP 106/71
[2021-02-22] MEDS: PRAVASTATIN SODIUM 20 MG TABLET PO SCH (20:20)
[2021-02-22] MEDS: ZOLPIDEM TARTRATE 10 MG TABLET PO PRN (20:20)
[2021-02-23 05:10] VITALS: BP 140/86
[2021-02-23] MEDS: MetFORMIN HCL 500 MG TABLET PO SCH ×2 (06:32→16:38)
[2021-02-23 08:01] VITALS: BP 120/74
[2021-02-23] MEDS: OLANZapine 10 MG TABLET PO SCH ×2 (08:49→20:30)
[2021-02-23] MEDS: METOPROLOL SUCCINATE 25 MG ER TABLET PO SCH (08:50)
[2021-02-23] MEDS: LISINOPRIL 5 MG TABLET PO SCH (08:50)
[2021-02-23 16:05] VITALS: BP 108/68
[2021-02-23] MEDS: PRAVASTATIN SODIUM 20 MG TABLET PO SCH (20:30)
[2021-02-24 02:01] VITALS: BP 103/66
[2021-02-24] MEDS: HALOPERIDOL 5 MG TABLET PO PRN ×2 (04:06→21:41)
[2021-02-24] MEDS: LORazepam 2 MG TABLET PO PRN ×2 (04:06→21:41)
[2021-02-24] MEDS: MetFORMIN HCL 500 MG TABLET PO SCH ×2 (06:46→16:46)
[2021-02-24 08:21] LABS: GLUCOMETER DEV NAME(LOC) POC.BV
[2021-02-24] MEDS: METOPROLOL SUCCINATE 25 MG ER TABLET PO SCH (08:36)
[2021-02-24] MEDS: LISINOPRIL 5 MG TABLET PO SCH (08:37)
[2021-02-24] MEDS: OLANZapine 10 MG TABLET PO SCH ×2 (08:37→21:00)
[2021-02-24 11:20] VITALS: BP 116/62
[2021-02-24 16:03] VITALS: BP 130/77
[2021-02-24] MEDS: PRAVASTATIN SODIUM 20 MG TABLET PO SCH (21:00)
[2021-02-25 04:02] VITALS: BP 135/80
[2021-02-25] MEDS: MetFORMIN HCL 500 MG TABLET PO SCH ×2 (06:55→16:13)
[2021-02-25 08:03] VITALS: BP 140/80
[2021-02-25] MEDS: LISINOPRIL 5 MG TABLET PO SCH (09:04)
[2021-02-25] MEDS: METOPROLOL SUCCINATE 25 MG ER TABLET PO SCH (09:04)
[2021-02-25] MEDS: OLANZapine 10 MG TABLET PO SCH ×2 (09:05→20:04)
[2021-02-25] MEDS: LORazepam 2 MG TABLET PO PRN ×2 (09:36→19:44)
[2021-02-25 16:20] VITALS: BP 117/65
[2021-02-25] MEDS: HALOPERIDOL 5 MG TABLET PO PRN (19:44)
[2021-02-25] MEDS: PRAVASTATIN SODIUM 20 MG TABLET PO SCH (20:04)
[2021-02-26 00:50] VITALS: BP 109/79
[2021-02-26] MEDS: MetFORMIN HCL 500 MG TABLET PO SCH ×2 (06:38→16:17)
[2021-02-26 07:29] LABS: COVID AG,FIA SOURCE NASOPHARYNGEAL
[2021-02-26 08:27] VITALS: BP 128/93
[2021-02-26] MEDS: METOPROLOL SUCCINATE 25 MG ER TABLET PO SCH (09:04)
[2021-02-26] MEDS: OLANZapine 10 MG TABLET PO SCH ×2 (09:07→20:16)
[2021-02-26] MEDS: LISINOPRIL 5 MG TABLET PO SCH (09:10)
[2021-02-26 17:07] VITALS: BP 100/62
[2021-02-26] MEDS: PRAVASTATIN SODIUM 20 MG TABLET PO SCH (20:17)
[2021-02-27 06:23] VITALS: BP 111/74
[2021-02-27] MEDS: MetFORMIN HCL 500 MG TABLET PO SCH ×2 (06:24→16:47)
[2021-02-27] MEDS: LISINOPRIL 5 MG TABLET PO SCH (08:29)
[2021-02-27] MEDS: METOPROLOL SUCCINATE 25 MG ER TABLET PO SCH (08:29)
[2021-02-27] MEDS: LORazepam 2 MG TABLET PO PRN ×3 (08:56→23:46)
[2021-02-27] MEDS: HALOPERIDOL 5 MG TABLET PO PRN ×2 (08:56→23:46)
[2021-02-27] MEDS: OLANZapine 10 MG TABLET PO SCH ×2 (08:56→20:34)
[2021-02-27 09:55] VITALS: BP 143/75
[2021-02-27 17:40] VITALS: BP 109/64
[2021-02-27] MEDS: PRAVASTATIN SODIUM 20 MG TABLET PO SCH (20:34)
[2021-02-28] VITALS: BP 109/72
[2021-02-28] MEDS: MetFORMIN HCL 500 MG TABLET PO SCH ×2 (06:42→16:35)
[2021-02-28 08:35] VITALS: BP 134/85
[2021-02-28] MEDS: OLANZapine 10 MG TABLET PO SCH ×2 (09:39→20:56)
[2021-02-28] MEDS: LISINOPRIL 5 MG TABLET PO SCH (09:40)
[2021-02-28] MEDS: METOPROLOL SUCCINATE 25 MG ER TABLET PO SCH (09:40)
[2021-02-28 16:13] VITALS: BP 135/83
[2021-02-28] MEDS: LORazepam 2 MG TABLET PO PRN (16:56)
[2021-02-28] MEDS: PRAVASTATIN SODIUM 20 MG TABLET PO SCH (20:56)
[2021-02-28] MEDS: ZOLPIDEM TARTRATE 10 MG TABLET PO PRN (22:44)
[2021-03-01 00:47] VITALS: BP 132/80
[2021-03-01] MEDS: MetFORMIN HCL 500 MG TABLET PO SCH ×2 (06:50→15:44)
[2021-03-01 08:46] VITALS: BP 145/92
[2021-03-01] MEDS: OLANZapine 10 MG TABLET PO SCH ×2 (09:15→20:27)
[2021-03-01] MEDS: METOPROLOL SUCCINATE 25 MG ER TABLET PO SCH (09:16)
[2021-03-01] MEDS: LISINOPRIL 5 MG TABLET PO SCH (09:16)
[2021-03-01] MEDS: LORazepam 2 MG TABLET PO PRN ×2 (09:17→15:46)
[2021-03-01 16:11] VITALS: BP 111/73
[2021-03-01] MEDS: PRAVASTATIN SODIUM 20 MG TABLET PO SCH (20:29)
[2021-03-02 06:21] VITALS: BP 132/76
[2021-03-02 06:23] VITALS: BP 118/76
[2021-03-02] MEDS: MetFORMIN HCL 500 MG TABLET PO SCH ×2 (06:37→16:29)
[2021-03-02 08:16] VITALS: BP 114/73
[2021-03-02] MEDS: OLANZapine 10 MG TABLET PO SCH ×2 (08:41→20:41)
[2021-03-02] MEDS: METOPROLOL SUCCINATE 25 MG ER TABLET PO SCH (08:42)
[2021-03-02] MEDS: LISINOPRIL 5 MG TABLET PO SCH (08:43)
[2021-03-02] MEDS: LORazepam 2 MG TABLET PO PRN ×2 (08:49→16:29)
[2021-03-02 16:28] VITALS: BP 100/67
[2021-03-02] MEDS: HALOPERIDOL 5 MG TABLET PO PRN (16:29)
[2021-03-02] MEDS: PRAVASTATIN SODIUM 20 MG TABLET PO SCH (20:41)
[2021-03-03 05:42] VITALS: BP 117/67
[2021-03-03] MEDS: MetFORMIN HCL 500 MG TABLET PO SCH ×2 (06:31→16:45)
[2021-03-03 08:27] VITALS: BP 125/79
[2021-03-03] MEDS: OLANZapine 10 MG TABLET PO SCH ×2 (09:18→20:19)
[2021-03-03] MEDS: METOPROLOL SUCCINATE 25 MG ER TABLET PO SCH (09:20)
[2021-03-03] MEDS: LISINOPRIL 5 MG TABLET PO SCH (09:20)
[2021-03-03 16:18] VITALS: BP 115/54
[2021-03-03] MEDS: PRAVASTATIN SODIUM 20 MG TABLET PO SCH (20:19)
[2021-03-04 04:53] VITALS: BP 112/72
[2021-03-04] MEDS: MetFORMIN HCL 500 MG TABLET PO SCH ×2 (06:01→17:25)
[2021-03-04 08:20] VITALS: BP 99/55
[2021-03-04] MEDS: HALOPERIDOL 5 MG TABLET PO PRN (08:57)
[2021-03-04] MEDS: OLANZapine 10 MG TABLET PO SCH ×2 (08:58→20:21)
[2021-03-04 10:30] VITALS: BP 117/68
[2021-03-04] MEDS: METOPROLOL SUCCINATE 25 MG ER TABLET PO SCH (10:35)
[2021-03-04] MEDS: LISINOPRIL 5 MG TABLET PO SCH (10:35)
[2021-03-04] MEDS: LORazepam 2 MG TABLET PO PRN (13:00)
[2021-03-04 16:13] VITALS: BP 105/62
[2021-03-04 19:06] LABS: GLUCOMETER DEV NAME(LOC) POC.BV
[2021-03-04] MEDS: PRAVASTATIN SODIUM 20 MG TABLET PO SCH (20:21)
[2021-03-05] MEDS: MetFORMIN HCL 500 MG TABLET PO SCH ×2 (06:37→17:57)
[2021-03-05] MEDS: METOPROLOL SUCCINATE 25 MG ER TABLET PO SCH (08:46)
[2021-03-05] MEDS: LISINOPRIL 5 MG TABLET PO SCH (08:47)
[2021-03-05] MEDS: OLANZapine 10 MG TABLET PO SCH ×2 (08:47→20:59)
[2021-03-05 09:25] VITALS: BP 117/66
[2021-03-05 12:51] LABS: GLUCOMETER DEV NAME(LOC) POC.BV
[2021-03-05 16:10] VITALS: BP 113/85
[2021-03-05] MEDS: LORazepam 2 MG TABLET PO PRN (18:00)
[2021-03-05] MEDS: PRAVASTATIN SODIUM 20 MG TABLET PO SCH (20:58)
[2021-03-06] VITALS (7 sets, daily range): BP systolic 92–126; BP diastolic 58–68
[2021-03-06] MEDS: MetFORMIN HCL 500 MG TABLET PO SCH ×2 (06:15→16:56)
[2021-03-06] MEDS: METOPROLOL SUCCINATE 25 MG ER TABLET PO SCH (09:01)
[2021-03-06] MEDS: LISINOPRIL 5 MG TABLET PO SCH (09:01)
[2021-03-06] MEDS: OLANZapine 10 MG TABLET PO SCH ×2 (09:01→20:35)
[2021-03-06] MEDS: LORazepam 2 MG TABLET PO PRN (19:40)
[2021-03-06] MEDS: PRAVASTATIN SODIUM 20 MG TABLET PO SCH (20:35)
[2021-03-07] VITALS (8 sets, daily range): BP systolic 94–138; BP diastolic 51–76
[2021-03-07] MEDS: MetFORMIN HCL 500 MG TABLET PO SCH ×2 (06:42→17:13)
[2021-03-07] MEDS: OLANZapine 10 MG TABLET PO SCH ×2 (09:19→20:43)
[2021-03-07] MEDS: METOPROLOL SUCCINATE 25 MG ER TABLET PO SCH (09:21)
[2021-03-07] MEDS: LISINOPRIL 5 MG TABLET PO SCH (09:21)
[2021-03-07] MEDS: LORazepam 2 MG TABLET PO PRN (09:22)
[2021-03-07] MEDS: HALOPERIDOL 5 MG TABLET PO PRN ×2 (09:22→20:49)
[2021-03-07] MEDS: PRAVASTATIN SODIUM 20 MG TABLET PO SCH (20:44)
[2021-03-08] VITALS (9 sets, daily range): BP systolic 83–125; BP diastolic 55–81
[2021-03-08] MEDS: MetFORMIN HCL 500 MG TABLET PO SCH ×2 (06:27→16:34)
[2021-03-08] MEDS: LISINOPRIL 5 MG TABLET PO SCH (08:57)
[2021-03-08] MEDS: OLANZapine 10 MG TABLET PO SCH ×2 (08:57→20:03)
[2021-03-08] MEDS: METOPROLOL SUCCINATE 25 MG ER TABLET PO SCH (08:57)
[2021-03-08] MEDS: HALOPERIDOL 5 MG TABLET PO PRN (08:59)
[2021-03-08] MEDS: LORazepam 2 MG TABLET PO PRN ×2 (08:59→22:23)
[2021-03-08] MEDS: PRAVASTATIN SODIUM 20 MG TABLET PO SCH (20:03)
[2021-03-09] VITALS (10 sets, daily range): BP systolic 100–111; BP diastolic 51–78
[2021-03-09] MEDS: MetFORMIN HCL 500 MG TABLET PO SCH ×2 (06:38→16:08)
[2021-03-09] MEDS: OLANZapine 10 MG TABLET PO SCH ×2 (09:47→21:37)
[2021-03-09] MEDS: METOPROLOL SUCCINATE 25 MG ER TABLET PO SCH (09:48)
[2021-03-09] MEDS: LISINOPRIL 5 MG TABLET PO SCH (09:48)
[2021-03-09] MEDS: PALIPERIDONE PALMITATE 234 MG/1.5 ML SYRINGE IM SCH (09:48)
[2021-03-09] MEDS: LORazepam 2 MG TABLET PO PRN (15:17)
[2021-03-09] MEDS: HALOPERIDOL 5 MG TABLET PO PRN (15:18)
[2021-03-09] MEDS: PRAVASTATIN SODIUM 20 MG TABLET PO SCH (21:16)
[2021-03-10] VITALS (10 sets, daily range): BP systolic 102–137; BP diastolic 63–80
[2021-03-10] MEDS: MetFORMIN HCL 500 MG TABLET PO SCH ×2 (07:14→16:25)
[2021-03-10] MEDS: OLANZapine 10 MG TABLET PO SCH ×2 (09:28→20:42)
[2021-03-10] MEDS: METOPROLOL SUCCINATE 25 MG ER TABLET PO SCH (09:28)
[2021-03-10] MEDS: LISINOPRIL 5 MG TABLET PO SCH (09:28)
[2021-03-10] MEDS: LORazepam 2 MG TABLET PO PRN (16:25)
[2021-03-10] MEDS: PRAVASTATIN SODIUM 20 MG TABLET PO SCH (20:42)
[2021-03-11] VITALS (10 sets, daily range): BP systolic 95–114; BP diastolic 53–89
[2021-03-11] MEDS: MetFORMIN HCL 500 MG TABLET PO SCH ×2 (06:52→17:05)
[2021-03-11] MEDS: OLANZapine 10 MG TABLET PO SCH ×2 (09:35→20:39)
[2021-03-11] MEDS: LORazepam 2 MG TABLET PO PRN (09:36)
[2021-03-11] MEDS: METOPROLOL SUCCINATE 25 MG ER TABLET PO SCH (09:36)
[2021-03-11] MEDS: HALOPERIDOL 5 MG TABLET PO PRN (09:36)
[2021-03-11] MEDS: LISINOPRIL 5 MG TABLET PO SCH (09:54)
[2021-03-11] MEDS: PRAVASTATIN SODIUM 20 MG TABLET PO SCH (20:39)
[2021-03-12] VITALS (8 sets, daily range): BP systolic 100–115; BP diastolic 56–75
[2021-03-12] MEDS: MetFORMIN HCL 500 MG TABLET PO SCH ×2 (06:27→16:43)
[2021-03-12] MEDS: LISINOPRIL 5 MG TABLET PO SCH (08:19)
[2021-03-12] MEDS: OLANZapine 10 MG TABLET PO SCH ×2 (08:20→20:06)
[2021-03-12] MEDS: HALOPERIDOL 5 MG TABLET PO PRN (08:22)
[2021-03-12] MEDS: METOPROLOL SUCCINATE 25 MG ER TABLET PO SCH (08:22)
[2021-03-12 08:36] LABS: GLUCOMETER DEV NAME(LOC) POC.BV
[2021-03-12 10:31] LABS: GLUCOMETER DEV NAME(LOC) POC.BV
[2021-03-12] MEDS: PRAVASTATIN SODIUM 20 MG TABLET PO SCH (20:07)
[2021-03-13 00:32] VITALS: BP 108/54
[2021-03-13] MEDS: MetFORMIN HCL 500 MG TABLET PO SCH (06:17)
[2021-03-13 06:40] VITALS: BP 124/53
[2021-03-13] MEDS: OLANZapine 10 MG TABLET PO SCH (08:04)
[2021-03-13 08:08] VITALS: BP 104/70
[2021-03-13] MEDS: LISINOPRIL 5 MG TABLET PO SCH (09:00)
[2021-03-13] MEDS: METOPROLOL SUCCINATE 25 MG ER TABLET PO SCH (09:00)
[2021-03-13] MEDS ORDERED: METF-1211 PO (09:31)
[2021-03-13] MEDS ORDERED: METO25XL PO (09:31)
[2021-03-13] MEDS ORDERED: PRAV20TA4 PO (09:31)
[2021-03-13] MEDS ORDERED: LISI-892 PO (09:31)
[2021-03-13] MEDS ORDERED: OLAN10TA26 PO (10:06)
[2021-03-13] MEDS ORDERED: PALI234D IM (10:06)
[2021-03-13 12:57] VITALS: BP 117/82
== END 2021-03-13 15:15 | disposition home or self-care (01) | DRG 885 ==
LOC: EMS 08:27 → B2X 14:43
PROVIDERS: ADMIT Psychiatry & Neurology Child & Adolescent Psychiatry; ATTEND Psychiatry & Neurology Child & Adolescent Psychiatry
DX: F20.0 Paranoid schizophrenia (principal); U07.1 COVID-19; I42.9 Cardiomyopathy, unspecified; E78.5 Hyperlipidemia, unspecified; F19.10 Other psychoactive substance abuse, uncomplicated; F17.210 Nicotine dependence, cigarettes, uncomplicated; E11.9 Type 2 diabetes mellitus without complications; I10 Essential (primary) hypertension; Z59.00 Homelessness unspecified; Z91.19 Patient's noncompliance with other medical treatment and regimen; Z23 Encounter for immunization; Z79.899 Other long term (current) drug therapy; Z71.6 Tobacco abuse counseling; Z71.51 Drug abuse counseling and surveillance of drug abuser
CPT/HCPCS: 80053; 80061; 83036; 84436; 84439; 84443; 85025; 86592; 87081; 90686; 99285; G0480; J1200; J1630; J2060

== ENCOUNTER 2021-09-15 16:22 | Inpatient (IN) | payer MEDICARE, MEDICAID ==
[~2021-09-15] VITALS: Ht 170.2 cm; Wt 65.3 kg
[~2021-09-15 16:22] MED LIST changes: +LISI-892 PO; -LISI5TAB21 PO; -PRAV20TA PO; +PRAV20TA4 PO
[2021-09-15 21:01] LABS: GLUCOMETER DEV NAME(LOC) BV2X.2; GLUCOSE,POINT OF CARE 107 MG/DL (70-110)
[2021-09-15 21:18] VITALS: BP 104/68
[2021-09-15] MEDS: LORazepam 2 MG TABLET PO PRN (23:56)
[2021-09-15] MEDS: ZOLPIDEM TARTRATE 10 MG TABLET PO PRN (23:56)
[2021-09-16] VITALS: BP 102/72
[2021-09-16 06:02] LABS: GLUCOMETER DEV NAME(LOC) BV2X.2; GLUCOSE,POINT OF CARE 109 MG/DL (70-110)
[2021-09-16] MEDS ORDERED: PETROLATUM,WHITE 28 GM JELLY TP PRN (06:15)
[2021-09-16] MEDS ORDERED: DOCUSATE SODIUM 100 MG CAPSULE PO PRN (06:15)
[2021-09-16] MEDS ORDERED: MAGNESIUM HYDROXIDE SUSPENSION 30 ML UDCUP PO PRN (06:15)
[2021-09-16] MEDS ORDERED: ONDANSETRON HCL 4 MG TABLET PO PRN (06:15)
[2021-09-16] MEDS ORDERED: IBUPROFEN 400 MG TABLET PO PRN (06:15)
[2021-09-16] MEDS ORDERED: ACETAMINOPHEN 325 MG TABLET PO PRN (06:15)
[2021-09-16] MEDS ORDERED: NICOTINE 14 MG/24 HOUR PATCH TD PRN (06:15)
[2021-09-16] MEDS ORDERED: CloNIDine HCL 0.1 MG TABLET PO PRN (06:15)
[2021-09-16] MEDS ORDERED: GuaiFENesin/D-METHORPHAN [SUGAR-FREE] 200-20MG/10 ML SYRUP UDCUP PO PRN (06:15)
[2021-09-16] MEDS ORDERED: ALBUTEROL SULFATE HFA 90 MCG/PUFF 8 GM INHALER IH PRN (06:15)
[2021-09-16] MEDS ORDERED: MAG HYDROX/AL HYDROX/SIMETH ES 30 ML SUSPENSION UDCUP PO PRN (06:15)
[2021-09-16] MEDS ORDERED: LOPERAMIDE HCL 2 MG CAPSULE PO PRN (06:15)
[2021-09-16 06:46] LABS: BASOPHILS % (AUTO) 1.1 % (0.0-2.0); EOSINOPHILS % (AUTO) 5.2 % (1.0-6.0); HEMATOCRIT 44.9 % (41-53); LYMPHOCYTES # (AUTO) 1.7 K/uL (1.0-4.8); LYMPHOCYTES % (AUTO) 35.6 % (22.0-44.0); MEAN CORPUSCULAR HGB CONC 33.4 G/dL (31.0-37.0); MEAN CORPUSCULAR VOLUME 93 fL (80-100); MONOCYTES # (AUTO) 0.4 K/uL (0.1-1.0); MONOCYTES % (AUTO) 9.3 % (2.0-9.0); NEUTROPHILS # (AUTO) 2.3 K/uL (1.8-7.7); NEUTROPHILS % (AUTO) 48.8 % (40.0-70.0); PLATELET COUNT (AUTO) 315 K/uL (150-450); RED BLOOD CELL COUNT(AUTO) 4.84 MIL/uL (4.50-5.90); RED CELL DISTRIBUTION WIDTH 14.6 % (11.5-14.5)
[2021-09-16 07:12] LABS: ALANINE AMINOTRANSFERASE 21 U/L (12-78); ALBUMIN 3.4 g/dL (3.4-5.0); ALKALINE PHOSPHATASE 116 U/L (46-116); ANION GAP 9 mmol/L (8-16); ASPARTATE AMINOTRANSFERASE 13 U/L (15-37); BILIRUBIN,TOTAL 0.2 mg/dL (0.1-1.0); CALCIUM, TOTAL 9.3 mg/dL (8.8-10.5); CARBON DIOXIDE 29 mmol/L (22-29); CHLORIDE 102 mmol/L (98-107); CHOL/HDL RATIO 3.6 (4.2-7.3); CHOLESTEROL 198 mg/dL (131-200); CREATININE 0.78 mg/dL (0.60-1.30); FREE T4 (FREE THYROXINE) 0.78 ng/dL (0.76-1.46); GLUCOSE,RANDOM 91 mg/dL (70-110); HDL CHOLESTEROL 55 mg/dL (40-60); LDL CHOL (CALC.) 118 mg/dL (0-130); POTASSIUM 4.7 mmol/L (3.5-5.1); SODIUM SERUM 140 mmol/L (136-145); THYROID STIMULATING HORMONE 0.66 uIU/mL (0.36-3.74); TOTAL PROTEIN, SERUM 6.8 g/dL (6.4-8.2); TRIGLYCERIDES 125 mg/dL (15-150); UREA NITROGEN, BLOOD 19 mg/dL (7-18)
[2021-09-16 07:15] LABS: GLOMERULAR FILTR. RATE CALC > 60 mL/min (>60)
[2021-09-16 07:32] LABS: HEMOGLOBIN A1C 5.6 % (3.8-5.6)
[2021-09-16 09:21] VITALS: BP 120/69
[2021-09-16] MEDS: OLANZapine 5 MG TABLET PO SCH ×2 (11:40→16:45)
[2021-09-16 16:21] LABS: GLUCOMETER DEV NAME(LOC) BV2X.2; GLUCOSE,POINT OF CARE 99 MG/DL (70-110)
[2021-09-16 20:31] LABS: GLUCOMETER DEV NAME(LOC) BV2X.2; GLUCOSE,POINT OF CARE 119 MG/DL (70-110)
[2021-09-16 20:36] VITALS: BP 126/60
[2021-09-17] MEDS: HALOPERIDOL 5 MG TABLET PO PRN ×3 (04:57→17:12)
[2021-09-17] MEDS: LORazepam 2 MG TABLET PO PRN ×3 (04:57→17:12)
[2021-09-17 08:12] VITALS: BP 120/60
[2021-09-17] MEDS: OLANZapine 5 MG TABLET PO SCH ×2 (08:25→17:12)
[2021-09-17 11:21] LABS: GLUCOMETER DEV NAME(LOC) BV2X.2; GLUCOSE,POINT OF CARE 128 MG/DL (70-110)
[2021-09-17 17:26] LABS: GLUCOMETER DEV NAME(LOC) BV2X.2; GLUCOSE,POINT OF CARE 115 MG/DL (70-110)
[2021-09-17 20:09] VITALS: BP 108/64
[2021-09-18] MEDS: LORazepam 2 MG TABLET PO PRN ×3 (02:32→20:14)
[2021-09-18] MEDS: HALOPERIDOL 5 MG TABLET PO PRN (02:32)
[2021-09-18 07:01] LABS: GLUCOMETER DEV NAME(LOC) BV2X.2; GLUCOSE,POINT OF CARE 99 MG/DL (70-110)
[2021-09-18] MEDS: OLANZapine 5 MG TABLET PO SCH ×2 (07:58→16:36)
[2021-09-18 08:00] VITALS: BP 105/62
[2021-09-18 16:21] LABS: GLUCOMETER DEV NAME(LOC) BV2X.2; GLUCOSE,POINT OF CARE 106 MG/DL (70-110)
[2021-09-18 20:05] VITALS: BP 106/68
[2021-09-19 05:27] VITALS: BP 114/77
[2021-09-19 06:16] LABS: GLUCOMETER DEV NAME(LOC) BV2X.2; GLUCOSE,POINT OF CARE 105 MG/DL (70-110)
[2021-09-19 08:28] VITALS: BP 114/72
[2021-09-19] MEDS: OLANZapine 5 MG TABLET PO SCH ×2 (08:39→16:36)
[2021-09-19 17:01] LABS: GLUCOMETER DEV NAME(LOC) BV2X.2; GLUCOSE,POINT OF CARE 116 MG/DL (70-110)
[2021-09-19] MEDS: HALOPERIDOL 5 MG TABLET PO PRN (19:27)
[2021-09-19] MEDS: LORazepam 2 MG TABLET PO PRN (19:27)
[2021-09-19 20:59] VITALS: BP 119/79
[2021-09-20 07:01] LABS: GLUCOMETER DEV NAME(LOC) BV2X.2; GLUCOSE,POINT OF CARE 100 MG/DL (70-110)
[2021-09-20 08:30] VITALS: BP 119/83
[2021-09-20] MEDS: OLANZapine 5 MG TABLET PO SCH ×2 (09:08→16:32)
[2021-09-20] MEDS: LORazepam 2 MG TABLET PO PRN ×2 (09:08→13:41)
[2021-09-20 16:46] LABS: GLUCOMETER DEV NAME(LOC) BV2X.2; GLUCOSE,POINT OF CARE 98 MG/DL (70-110)
[2021-09-20 21:53] VITALS: BP 116/78
[2021-09-21 06:01] LABS: GLUCOMETER DEV NAME(LOC) BV2X.2; GLUCOSE,POINT OF CARE 99 MG/DL (70-110)
[2021-09-21 07:46] LABS: GLUCOMETER DEV NAME(LOC) POC.BV
[2021-09-21 08:34] VITALS: BP 118/70
[2021-09-21] MEDS ORDERED: PALIPERIDONE PALMITATE 156 MG/ML SYRINGE IM ONE (10:00)
[2021-09-21] MEDS: OLANZapine 5 MG TABLET PO SCH ×2 (10:01→16:39)
[2021-09-21 16:16] LABS: GLUCOMETER DEV NAME(LOC) BV2X.2; GLUCOSE,POINT OF CARE 100 MG/DL (70-110)
[2021-09-21 16:30] VITALS: BP 135/71
[2021-09-21] MEDS: LORazepam 2 MG TABLET PO PRN (19:12)
[2021-09-21] MEDS: HALOPERIDOL 5 MG TABLET PO PRN (19:12)
[2021-09-22 06:51] LABS: GLUCOMETER DEV NAME(LOC) BV3N.; GLUCOSE,POINT OF CARE 156 MG/DL (70-110)
[2021-09-22 08:17] VITALS: BP 127/70
[2021-09-22] MEDS: OLANZapine 5 MG TABLET PO SCH ×2 (09:17→16:27)
[2021-09-22] MEDS: LORazepam 2 MG TABLET PO PRN ×2 (09:18→16:27)
[2021-09-22] MEDS: HALOPERIDOL 5 MG TABLET PO PRN ×2 (09:41→16:28)
[2021-09-22 20:04] VITALS: BP 127/84
[2021-09-22] MEDS: ZOLPIDEM TARTRATE 10 MG TABLET PO PRN (20:29)
[2021-09-23 06:26] LABS: GLUCOMETER DEV NAME(LOC) BV3N.; GLUCOSE,POINT OF CARE 173 MG/DL (70-110)
[2021-09-23] MEDS: HALOPERIDOL 5 MG TABLET PO PRN (08:08)
[2021-09-23] MEDS: OLANZapine 5 MG TABLET PO SCH (08:08)
[2021-09-23] MEDS: LORazepam 2 MG TABLET PO PRN (08:08)
[2021-09-23 08:23] VITALS: BP 131/76
[2021-09-23] MEDS ORDERED: OLAN5TAB52 PO (12:18)
[2021-09-23] MEDS ORDERED: PALI156D IM (12:18)
== END 2021-09-23 14:22 | disposition home or self-care (01) | DRG 885 ==
LOC: B2X 19:16 → B3A 09-21 20:26
PROVIDERS: ADMIT Psychiatry & Neurology Child & Adolescent Psychiatry; ATTEND Psychiatry & Neurology Child & Adolescent Psychiatry
DX: F20.0 Paranoid schizophrenia (principal); E11.9 Type 2 diabetes mellitus without complications; E78.5 Hyperlipidemia, unspecified; F15.10 Other stimulant abuse, uncomplicated; I10 Essential (primary) hypertension; F19.10 Other psychoactive substance abuse, uncomplicated; Z20.822 Contact with and (suspected) exposure to COVID-19; F99 Mental disorder, not otherwise specified; Z59.00 Homelessness unspecified
CPT/HCPCS: 80053; 80061; 82962; 83036; 84439; 84443; 85025

== ENCOUNTER 2021-11-25 13:31 | Emergency (ER) | payer MEDICARE, OTHER ==
[~2021-11-25] VITALS: Ht 170.2 cm; Wt 63.6 kg
[~2021-11-25 13:31] MED LIST changes: -OLAN10TA26 PO; +OLAN5TAB52 PO; +PALI156D IM; -PALI234D IM
[2021-11-25 13:32] VITALS: BP 113/73
[2021-11-25 13:52] LABS: GLUCOSE,POINT OF CARE 142 MG/DL (70-110)
[2021-11-25 15:17] LABS: BASOPHILS % (AUTO) 1.2 % (0.0-2.0); EOSINOPHILS % (AUTO) 5.3 % (1.0-6.0); HEMATOCRIT 45.9 % (41-53); LYMPHOCYTES # (AUTO) 1.7 K/uL (1.0-4.8); LYMPHOCYTES % (AUTO) 32.7 % (22.0-44.0); MEAN CORPUSCULAR HEMOGLOBIN 31.1 pg (26.0-34.0); MEAN CORPUSCULAR HGB CONC 32.6 G/dL (31.0-37.0); MEAN CORPUSCULAR VOLUME 95 fL (80-100); MONOCYTES # (AUTO) 0.6 K/uL (0.1-1.0); MONOCYTES % (AUTO) 12.1 % (2.0-9.0); NEUTROPHILS # (AUTO) 2.5 K/uL (1.8-7.7); NEUTROPHILS % (AUTO) 48.7 % (40.0-70.0); PLATELET COUNT (AUTO) 290 K/uL (150-450); RED BLOOD CELL COUNT(AUTO) 4.81 MIL/uL (4.50-5.90)
[2021-11-25 15:25] LABS: ANION GAP 3 mmol/L (8-16); CALCIUM, TOTAL 9.5 mg/dL (8.8-10.5); CARBON DIOXIDE 34 mmol/L (22-29); CHLORIDE 105 mmol/L (98-107); CREATININE 0.86 mg/dL (0.60-1.30); GLUCOSE,RANDOM 86 mg/dL (70-110); SODIUM SERUM 142 mmol/L (136-145); UREA NITROGEN, BLOOD 16 mg/dL (7-18)
[2021-11-25 15:27] LABS: GLOMERULAR FILTR. RATE CALC > 60 mL/min (>60)
[2021-11-25 15:31] LABS: ALANINE AMINOTRANSFERASE 21 U/L (12-78); ALBUMIN 3.7 g/dL (3.4-5.0); ALKALINE PHOSPHATASE 129 U/L (46-116); ASPARTATE AMINOTRANSFERASE 14 U/L (15-37); BILIRUBIN,TOTAL 0.2 mg/dL (0.1-1.0); TOTAL PROTEIN, SERUM 6.7 g/dL (6.4-8.2)
== END 2021-11-25 15:45 | disposition left against medical advice (07) ==
LOC: EMS 13:37
DX: F20.0 Paranoid schizophrenia (principal); E11.9 Type 2 diabetes mellitus without complications; I10 Essential (primary) hypertension; F17.210 Nicotine dependence, cigarettes, uncomplicated; F15.90 Other stimulant use, unspecified, uncomplicated; Z59.00 Homelessness unspecified
CPT/HCPCS: 99283; 80053; 82962; 85025; 36415; G0480

== ENCOUNTER 2021-12-05 21:50 | Emergency (ER) | payer MEDICARE, OTHER ==
[~2021-12-05] VITALS: Ht 165.1 cm; Wt 60.8 kg
[2021-12-06 01:49] LABS: EOSINOPHILS % (AUTO) 5.7 % (1.0-6.0); HEMATOCRIT 44.7 % (41-53); HEMOGLOBIN 14.8 g/dL (13.5-17.5); LYMPHOCYTES # (AUTO) 2.1 K/uL (1.0-4.8); LYMPHOCYTES % (AUTO) 39.4 % (22.0-44.0); MEAN CORPUSCULAR HEMOGLOBIN 31.4 pg (26.0-34.0); MEAN CORPUSCULAR VOLUME 95 fL (80-100); MONOCYTES # (AUTO) 0.5 K/uL (0.1-1.0); NEUTROPHILS # (AUTO) 2.4 K/uL (1.8-7.7); NEUTROPHILS % (AUTO) 43.9 % (40.0-70.0); PLATELET COUNT (AUTO) 289 K/uL (150-450); RED CELL DISTRIBUTION WIDTH 13.7 % (11.5-14.5)
[2021-12-06 02:01] LABS: ANION GAP 4 mmol/L (8-16); CALCIUM, TOTAL 9.7 mg/dL (8.8-10.5); CARBON DIOXIDE 33 mmol/L (22-29); CHLORIDE 107 mmol/L (98-107); CREATININE 0.72 mg/dL (0.60-1.30); GLUCOSE,RANDOM 126 mg/dL (70-110); POTASSIUM 3.8 mmol/L (3.5-5.1); SODIUM SERUM 144 mmol/L (136-145); UREA NITROGEN, BLOOD 12 mg/dL (7-18)
[2021-12-06 02:04] LABS: GLOMERULAR FILTR. RATE CALC > 60 mL/min (>60)
[2021-12-06 02:05] LABS: ALANINE AMINOTRANSFERASE 18 U/L (12-78); ALBUMIN 3.7 g/dL (3.4-5.0); ALKALINE PHOSPHATASE 101 U/L (46-116); ASPARTATE AMINOTRANSFERASE 10 U/L (15-37); BILIRUBIN,TOTAL 0.2 mg/dL (0.1-1.0); TOTAL PROTEIN, SERUM 6.6 g/dL (6.4-8.2)
[2021-12-06 02:30] VITALS: BP 120/69
== END 2021-12-06 03:37 | disposition home or self-care (01) ==
LOC: EMS 22:10
DX: F19.10 Other psychoactive substance abuse, uncomplicated (principal); E11.9 Type 2 diabetes mellitus without complications; I10 Essential (primary) hypertension; F20.9 Schizophrenia, unspecified; F17.210 Nicotine dependence, cigarettes, uncomplicated; F12.90 Cannabis use, unspecified, uncomplicated; Z59.00 Homelessness unspecified
CPT/HCPCS: 99283; 80053; 85025; 36415; 82962; G0480

== ENCOUNTER 2023-07-02 14:40 | Emergency (ER) | payer MEDICARE, OTHER ==
[2023-07-02] MEDS ORDERED: BENZ0.5T6 PO (14:47)
[2023-07-02] MEDS ORDERED: RISP0.5T80 PO (14:47)
[2023-07-02] MEDS ORDERED: HALO1TAB19 PO (14:47)
== END 2023-07-02 18:56 | disposition left against medical advice (07) ==
LOC: EMS 14:55
DX: F41.9 Anxiety disorder, unspecified (principal); F20.0 Paranoid schizophrenia; E11.9 Type 2 diabetes mellitus without complications; I10 Essential (primary) hypertension; F17.210 Nicotine dependence, cigarettes, uncomplicated; F15.90 Other stimulant use, unspecified, uncomplicated; Z59.00 Homelessness unspecified; Z53.21 Procedure and treatment not carried out due to patient leaving prior to being seen by health care provider
CPT/HCPCS: 93005

== ENCOUNTER 2023-07-21 04:50 | Emergency (ER) | payer MEDICARE ==
[~2023-07-21] VITALS: Ht 170.2 cm; Wt 61.3 kg
[~2023-07-21 04:50] MED LIST changes: +BENZ0.5T6 PO; +HALO1TAB19 PO; -LISI-892 PO; -METF-1211 PO; -METO25XL PO; -OLAN5TAB52 PO; -PALI156D IM; -PRAV20TA4 PO; +RISP0.5T80 PO
[2023-07-21 04:55] VITALS: TEMP 97.7
[2023-07-21 05:11] LABS: GLUCOMETER DEV NAME(LOC) ER.7; GLUCOSE,POINT OF CARE 108 MG/DL (70-110)
[2023-07-21 05:12] VITALS: BP 142/86; PULSE 109; RESP 22
[2023-07-21 05:19] LABS: PH,URINE DRUG SCREEN 6.5 (5.0-8.0)
[2023-07-21 05:25] LABS: ALCOHOL, URINE DRUG SCREEN NEGATIVE (NEGATIVE); AMPHET/METH SCREEN,URINE POSITIVE (NEGATIVE); BARBITURATE SCREEN, URINE NEGATIVE (NEGATIVE); BENZODIAZEPINES SCREEN,URINE NEGATIVE (NEGATIVE); CANNABINOID SCREEN,URINE NEGATIVE (NEGATIVE); COCAINE SCREEN,URINE NEGATIVE (NEGATIVE); METHADONE SCREEN, URINE NEGATIVE (NEGATIVE); OPIATE SCREEN,URINE NEGATIVE (NEGATIVE); PHENCYCLIDINE SCREEN,URINE NEGATIVE (NEGATIVE)
== END 2023-07-21 05:56 | disposition home or self-care (01) ==
LOC: EMS 04:51
DX: F20.0 Paranoid schizophrenia (principal); E11.9 Type 2 diabetes mellitus without complications; I10 Essential (primary) hypertension; F17.210 Nicotine dependence, cigarettes, uncomplicated; F15.90 Other stimulant use, unspecified, uncomplicated; Z59.00 Homelessness unspecified
CPT/HCPCS: 80307; 82962; 99284

== ENCOUNTER 2023-07-29 19:48 | Emergency (ER) | payer MEDICARE, OTHER ==
[~2023-07-29] VITALS: Ht 154.9 cm; Wt 47.7 kg
[2023-07-29 20:06] VITALS: BP 124/94; PULSE 96; RESP 18; TEMP 98.2
[2023-07-29 20:25] LABS: GLUCOMETER DEV NAME(LOC) ERT.5; GLUCOSE,POINT OF CARE 133 MG/DL (70-110)
[2023-07-29 23:17] LABS: BASOPHILS % (AUTO) 1.1 % (0.0-2.0); EOSINOPHILS % (AUTO) 1.9 % (1.0-6.0); HEMATOCRIT 44.5 % (41-53); LYMPHOCYTES # (AUTO) 2.3 K/uL (1.0-4.8); LYMPHOCYTES % (AUTO) 34.1 % (22.0-44.0); MEAN CORPUSCULAR HGB CONC 33.6 G/dL (31.0-37.0); MEAN CORPUSCULAR VOLUME 95 fL (80-100); MONOCYTES # (AUTO) 0.9 K/uL (0.1-1.0); MONOCYTES % (AUTO) 12.7 % (2.0-9.0); NEUTROPHILS # (AUTO) 3.4 K/uL (1.8-7.7); NEUTROPHILS % (AUTO) 50.2 % (40.0-70.0); PLATELET COUNT (AUTO) 275 K/uL (150-450); RED BLOOD CELL COUNT(AUTO) 4.67 MIL/uL (4.50-5.90); RED CELL DISTRIBUTION WIDTH 13.8 % (11.5-14.5); WHITE BLOOD COUNT (AUTO) 6.9 K/uL (4.5-11.0)
[2023-07-29 23:17] LABS: ALCOHOL, URINE DRUG SCREEN NEGATIVE (NEGATIVE); AMPHET/METH SCREEN,URINE NEGATIVE (NEGATIVE); BARBITURATE SCREEN, URINE NEGATIVE (NEGATIVE); BENZODIAZEPINES SCREEN,URINE POSITIVE (NEGATIVE); CANNABINOID SCREEN,URINE NEGATIVE (NEGATIVE); COCAINE SCREEN,URINE NEGATIVE (NEGATIVE); METHADONE SCREEN, URINE NEGATIVE (NEGATIVE); OPIATE SCREEN,URINE POSITIVE (NEGATIVE); PHENCYCLIDINE SCREEN,URINE NEGATIVE (NEGATIVE)
[2023-07-29 23:21] LABS: ANION GAP 7 mmol/L (8-16); CALCIUM, TOTAL 9.7 mg/dL (8.8-10.5); CARBON DIOXIDE 28 mmol/L (22-29); CHLORIDE 106 mmol/L (98-107); CREATININE 0.86 mg/dL (0.60-1.30); GLOMERULAR FILTR. RATE CALC > 60 mL/min (>60); GLUCOSE,RANDOM 89 mg/dL (70-110); POTASSIUM 4.9 mmol/L (3.5-5.1); SODIUM SERUM 141 mmol/L (136-145); UREA NITROGEN, BLOOD 16 mg/dL (7-18)
[2023-07-29 23:31] LABS: ALCOHOL, BLOOD (SERUM) < 3 mg/dL (0-10)
== END 2023-07-29 23:05 | disposition left against medical advice (07) ==
LOC: EMS 19:48
DX: R44.0 Auditory hallucinations (principal); E11.9 Type 2 diabetes mellitus without complications; I10 Essential (primary) hypertension; F17.210 Nicotine dependence, cigarettes, uncomplicated; F15.90 Other stimulant use, unspecified, uncomplicated; Z59.00 Homelessness unspecified
CPT/HCPCS: 99283; 80048; 82962; 85025; 36415; 80307; G0480

== ENCOUNTER 2023-10-14 14:59 | Inpatient (IN) | payer MEDICARE, MEDICAID ==
[~2023-10-14] VITALS: Ht 170.2 cm; Wt 62.6 kg
[~2023-10-14 14:59] MED LIST changes: +BENZ0.5T52 PO; -BENZ0.5T6 PO
[2023-10-14 17:00] VITALS: BP 133/86; PULSE 90; RESP 16; TEMP 97.7; O2SAT 100
[2023-10-14 18:26] LABS: GLUCOMETER DEV NAME(LOC) BV2X.3; GLUCOSE,POINT OF CARE 116 MG/DL (70-110)
[2023-10-14 20:00] VITALS: BP 141/81; PULSE 98; RESP 17; TEMP 96.7; O2SAT 99
[2023-10-14] MEDS: ZOLPIDEM TARTRATE 10 MG TABLET PO PRN (23:26)
[2023-10-15 07:55] LABS: BASOPHILS % (AUTO) 0.7 % (0.0-2.0); EOSINOPHILS % (AUTO) 3.2 % (1.0-6.0); HEMATOCRIT 43.6 % (41-53); HEMOGLOBIN 14.4 g/dL (13.5-17.5); LYMPHOCYTES # (AUTO) 1.6 K/uL (1.0-4.8); LYMPHOCYTES % (AUTO) 32.7 % (22.0-44.0); MEAN CORPUSCULAR HEMOGLOBIN 31.9 pg (26.0-34.0); MEAN CORPUSCULAR HGB CONC 32.9 G/dL (31.0-37.0); MEAN CORPUSCULAR VOLUME 97 fL (80-100); MONOCYTES # (AUTO) 0.5 K/uL (0.1-1.0); MONOCYTES % (AUTO) 10.2 % (2.0-9.0); NEUTROPHILS # (AUTO) 2.6 K/uL (1.8-7.7); NEUTROPHILS % (AUTO) 53.2 % (40.0-70.0); PLATELET COUNT (AUTO) 260 K/uL (150-450); RED CELL DISTRIBUTION WIDTH 13.7 % (11.5-14.5); WHITE BLOOD COUNT (AUTO) 4.9 K/uL (4.5-11.0)
[2023-10-15 08:05] LABS: HEMOGLOBIN A1C 5.9 % (3.8-5.6)
[2023-10-15 08:11] LABS: APPEARANCE,URINE HAZY (CLEAR); BILIRUBIN,URINE NEGATIVE (NEGATIVE); COLOR,URINE LIGHT YELLOW (YELLOW); GLUCOSE, URINE (UA) NEGATIVE (NEGATIVE); KETONES,URINE TRACE mg/dL (NEGATIVE); LEUKOCYTE ESTERASE ,URINE NEGATIVE (NEGATIVE); NITRATE,URINE NEGATIVE (NEGATIVE); OCCULT BLOOD,URINE NEGATIVE (NEGATIVE); PH,URINE 7.5 (5.0-8.0); PH,URINE DRUG SCREEN 7.5 (5.0-8.0); PROTEIN,URINE TRACE mg/dL (NEGATIVE); SPECIFIC GRAVITIY, URINE 1.024 (1.003-1.030); UROBILINOGEN,URINE <=1.0 mg/dL (<=1.0)
[2023-10-15 08:15] LABS: ALCOHOL, URINE DRUG SCREEN NEGATIVE (NEGATIVE); AMPHET/METH SCREEN,URINE NEGATIVE (NEGATIVE); BARBITURATE SCREEN, URINE NEGATIVE (NEGATIVE); BENZODIAZEPINES SCREEN,URINE NEGATIVE (NEGATIVE); CANNABINOID SCREEN,URINE NEGATIVE (NEGATIVE); COCAINE SCREEN,URINE NEGATIVE (NEGATIVE); METHADONE SCREEN, URINE NEGATIVE (NEGATIVE); OPIATE SCREEN,URINE NEGATIVE (NEGATIVE); PHENCYCLIDINE SCREEN,URINE NEGATIVE (NEGATIVE)
[2023-10-15] MEDS ORDERED: IBUPROFEN 400 MG TABLET PO PRN (08:15)
[2023-10-15] MEDS ORDERED: MAGNESIUM HYDROXIDE SUSPENSION 30 ML UDCUP PO PRN (08:15)
[2023-10-15] MEDS ORDERED: ALBUTEROL SULFATE HFA 90 MCG/PUFF 8 GM INHALER IH PRN (08:15)
[2023-10-15] MEDS ORDERED: ACETAMINOPHEN 325 MG TABLET PO PRN (08:15)
[2023-10-15] MEDS ORDERED: GuaiFENesin/D-METHORPHAN [SUGAR-FREE] 200-20MG/10 ML SYRUP UDCUP PO PRN (08:15)
[2023-10-15] MEDS ORDERED: LOPERAMIDE HCL 2 MG CAPSULE PO PRN (08:15)
[2023-10-15] MEDS ORDERED: DOCUSATE SODIUM 100 MG CAPSULE PO PRN (08:15)
[2023-10-15] MEDS ORDERED: CloNIDine HCL 0.1 MG TABLET PO PRN (08:15)
[2023-10-15] MEDS ORDERED: NICOTINE 14 MG/24 HOUR PATCH TD PRN (08:15)
[2023-10-15] MEDS ORDERED: ONDANSETRON HCL 4 MG TABLET PO PRN (08:15)
[2023-10-15] MEDS ORDERED: MAG HYDROX/ALUMINUM HYD/SIMETH ES 30 ML SUSPENSION UDCUP PO PRN (08:15)
[2023-10-15] MEDS ORDERED: PETROLATUM,WHITE 28 GM JELLY TP PRN (08:15)
[2023-10-15 08:27] LABS: ALANINE AMINOTRANSFERASE 40 U/L (12-78); ALBUMIN 3.1 g/dL (3.4-5.0); ALKALINE PHOSPHATASE 97 U/L (46-116); ANION GAP 8 mmol/L (8-16); ASPARTATE AMINOTRANSFERASE 23 U/L (15-37); BILIRUBIN,TOTAL 0.2 mg/dL (0.1-1.0); CALCIUM, TOTAL 8.9 mg/dL (8.8-10.5); CARBON DIOXIDE 28 mmol/L (22-29); CHLORIDE 104 mmol/L (98-107); CREATININE 0.88 mg/dL (0.60-1.30); FREE T4 (FREE THYROXINE) 0.74 ng/dL (0.76-1.46); GLOMERULAR FILTR. RATE CALC > 60 mL/min (>60); GLUCOSE,RANDOM 86 mg/dL (70-110); POTASSIUM 4.7 mmol/L (3.5-5.1); SODIUM SERUM 140 mmol/L (136-145); THYROID STIMULATING HORMONE 0.61 uIU/mL (0.36-3.74); TOTAL PROTEIN, SERUM 6.4 g/dL (6.4-8.2); UREA NITROGEN, BLOOD 15 mg/dL (7-18)
[2023-10-15 08:33] VITALS: BP 136/87; PULSE 72; RESP 18; TEMP 98; O2SAT 98
[2023-10-15] MEDS: HALOPERIDOL 5 MG TABLET PO PRN (16:42)
[2023-10-15] MEDS: LORazepam 2 MG TABLET PO PRN (16:42)
[2023-10-15] MEDS: DiphenhydrAMINE HCL 50 MG/ML VIAL IM ONE (17:23)
[2023-10-15] MEDS: HALOPERIDOL LACTATE 5 MG/ML VIAL IM ONE (17:23)
[2023-10-15 20:21] VITALS: BP 153/102; PULSE 71; RESP 20; TEMP 97.6; O2SAT 100
[2023-10-15 21:41] VITALS: BP 123/81; PULSE 68; RESP 16; TEMP 98.1; O2SAT 99
[2023-10-15] MEDS: OLANZapine 5 MG TABLET PO SCH (21:42)
[2023-10-16 08:32] VITALS: BP 134/92; PULSE 76; RESP 19; TEMP 97.9; O2SAT 98
[2023-10-16 08:38] LABS: HEMOGLOBIN A1C 5.7 % (3.8-5.6)
[2023-10-16 08:56] LABS: CHOL/HDL RATIO 3.3 (4.2-7.3); THYROID STIMULATING HORMONE 0.81 uIU/mL (0.36-3.74)
[2023-10-16] MEDS ORDERED: LORazepam 2 MG/ML VIAL ONE (11:29)
[2023-10-16] MEDS ORDERED: HALOPERIDOL LACTATE 5 MG/ML VIAL ONE (11:29)
[2023-10-16] MEDS ORDERED: DiphenhydrAMINE HCL 50 MG/ML VIAL ONE (11:29)
[2023-10-16] MEDS: DiphenhydrAMINE HCL 50 MG/ML VIAL IM ONE (11:35)
[2023-10-16] MEDS: HALOPERIDOL LACTATE 5 MG/ML VIAL IM ONE (11:35)
[2023-10-16] MEDS: LORazepam 2 MG/ML VIAL IM ONE (11:35)
[2023-10-16 20:56] VITALS: BP 127/94; PULSE 89; RESP 18; TEMP 97; O2SAT 97
[2023-10-17 08:05] VITALS: BP 132/89; PULSE 92; RESP 18; TEMP 96.6; O2SAT 100
[2023-10-17] MEDS ORDERED: ChlorproMAZINE HCL 50 MG/2 ML AMP ONE (09:07)
[2023-10-17] MEDS ORDERED: DiphenhydrAMINE HCL 50 MG/ML VIAL ONE (09:07)
[2023-10-17] MEDS: ChlorproMAZINE HCL 50 MG/2 ML AMP IM ONE (09:22)
[2023-10-17] MEDS: DiphenhydrAMINE HCL 50 MG/ML VIAL IM ONE (09:22)
[2023-10-17 10:22] VITALS: BP 117/76; PULSE 114; RESP 18; O2SAT 96
[2023-10-17 20:00] VITALS: BP 127/94; PULSE 100; RESP 18; TEMP 96.4; O2SAT 100
[2023-10-18 08:08] VITALS: BP 116/78; PULSE 98; RESP 18; TEMP 97.4; O2SAT 100
[2023-10-18 20:09] VITALS: BP 128/82; PULSE 90; RESP 20; TEMP 98; O2SAT 98
[2023-10-19 10:12] VITALS: BP 108/68; PULSE 100; RESP 18; TEMP 96.5; O2SAT 95
[2023-10-19 20:06] VITALS: RESP 20; TEMP 97.8
[2023-10-20 08:32] VITALS: BP 140/72; PULSE 85; RESP 17; TEMP 97.4; O2SAT 100
[2023-10-20 20:06] VITALS: BP 150/70; PULSE 87; RESP 17; TEMP 97.1; O2SAT 100
[2023-10-21 08:13] VITALS: BP 138/99; PULSE 96; RESP 19; TEMP 98; O2SAT 98
[2023-10-21 08:59] VITALS: BP 128/79
[2023-10-21] MEDS ORDERED: OLAN5TAB52 PO (09:12)
== END 2023-10-21 09:30 | disposition home or self-care (01) | DRG 885 ==
LOC: B2X 15:08
PROVIDERS: ADMIT Psychiatry & Neurology Child & Adolescent Psychiatry; ATTEND Psychiatry & Neurology Child & Adolescent Psychiatry
PROC: GZ52ZZZ Individual Psychotherapy, Cognitive (ICD-10-PCS; principal; 2023-10-15)
PROC: GZ56ZZZ Individual Psychotherapy, Supportive (ICD-10-PCS; 2023-10-15)
DX: F20.0 Paranoid schizophrenia (principal); E11.65 Type 2 diabetes mellitus with hyperglycemia; R45.851 Suicidal ideations; F33.9 Major depressive disorder, recurrent, unspecified; I10 Essential (primary) hypertension; E78.5 Hyperlipidemia, unspecified
CPT/HCPCS: 80053; 80061; 80307; 81003; 82962; 83036; 84439; 84443; 85025; J1200; J1630; J2060; J3230

== ENCOUNTER 2023-11-02 11:01 | Inpatient (IN) | payer MEDICARE, MEDICAID ==
[~2023-11-02] VITALS: Ht 170.2 cm; Wt 62.6 kg
[~2023-11-02 11:01] MED LIST changes: -BENZ0.5T52 PO; -HALO1TAB19 PO; +OLAN5TAB52 PO; -RISP0.5T80 PO
[2023-11-02 12:31] LABS: GLUCOMETER DEV NAME(LOC) POC.BV; POC SARS-COV2 AG, FIA NEGATIVE (NEGATIVE)
[2023-11-02 14:40] VITALS: BP 108/60; PULSE 85; RESP 18; TEMP 96.6; O2SAT 100
[2023-11-02 20:07] VITALS: BP 94/68; PULSE 58; RESP 17; TEMP 97.1; O2SAT 100
[2023-11-02] MEDS: OLANZapine 10 MG TABLET PO SCH (20:25)
[2023-11-03 08:07] VITALS: BP 118/77; PULSE 60; RESP 17; TEMP 98.1; O2SAT 96
[2023-11-03 08:51] LABS: HEMOGLOBIN A1C 5.5 % (3.8-5.6)
[2023-11-03 08:57] LABS: EOSINOPHILS % (AUTO) 3.2 % (1.0-6.0); HEMATOCRIT 49.6 % (41-53); HEMOGLOBIN 16.1 g/dL (13.5-17.5); LYMPHOCYTES # (AUTO) 1.6 K/uL (1.0-4.8); LYMPHOCYTES % (AUTO) 33.9 % (22.0-44.0); MEAN CORPUSCULAR HEMOGLOBIN 31.5 pg (26.0-34.0); MEAN CORPUSCULAR HGB CONC 32.4 G/dL (31.0-37.0); MEAN CORPUSCULAR VOLUME 97 fL (80-100); MONOCYTES # (AUTO) 0.6 K/uL (0.1-1.0); MONOCYTES % (AUTO) 11.5 % (2.0-9.0); NEUTROPHILS # (AUTO) 2.4 K/uL (1.8-7.7); NEUTROPHILS % (AUTO) 50.4 % (40.0-70.0); PLATELET COUNT (AUTO) 311 K/uL (150-450); RED CELL DISTRIBUTION WIDTH 14.5 % (11.5-14.5); WHITE BLOOD COUNT (AUTO) 4.8 K/uL (4.5-11.0)
[2023-11-03 09:15] LABS: ALANINE AMINOTRANSFERASE 30 U/L (12-78); ALBUMIN 3.4 g/dL (3.4-5.0); ALKALINE PHOSPHATASE 106 U/L (46-116); ANION GAP 6 mmol/L (8-16); ASPARTATE AMINOTRANSFERASE 14 U/L (15-37); BILIRUBIN,TOTAL 0.3 mg/dL (0.1-1.0); CALCIUM, TOTAL 9.1 mg/dL (8.8-10.5); CARBON DIOXIDE 31 mmol/L (22-29); CHLORIDE 105 mmol/L (98-107); CHOL/HDL RATIO 3.8 (4.2-7.3); CHOLESTEROL 201 mg/dL (131-200); CREATININE 0.93 mg/dL (0.60-1.30); FREE T4 (FREE THYROXINE) 0.87 ng/dL (0.76-1.46); GLOMERULAR FILTR. RATE CALC > 60 mL/min (>60); GLUCOSE,RANDOM 86 mg/dL (70-110); HDL CHOLESTEROL 53 mg/dL (40-60); LDL CHOL (CALC.) 127 mg/dL (0-130); POTASSIUM 4.6 mmol/L (3.5-5.1); SODIUM SERUM 142 mmol/L (136-145); THYROID STIMULATING HORMONE 0.74 uIU/mL (0.36-3.74); TOTAL PROTEIN, SERUM 6.7 g/dL (6.4-8.2); TRIGLYCERIDES 105 mg/dL (15-150); UREA NITROGEN, BLOOD 13 mg/dL (7-18)
[2023-11-03] MEDS: OLANZapine 5 MG TABLET PO SCH (10:01)
[2023-11-03] MEDS: HALOPERIDOL 5 MG TABLET PO PRN (11:03)
[2023-11-03] MEDS: LORazepam 2 MG TABLET PO PRN (11:03)
[2023-11-03 20:03] VITALS: BP 110/72; PULSE 70; RESP 16; TEMP 98; O2SAT 97
[2023-11-04 08:06] VITALS: BP 118/75; PULSE 84; RESP 16; TEMP 97.4; O2SAT 100
[2023-11-04] MEDS: ETHYL ALCOHOL 62% ANTISEPTIC NASAL SANITIZER 0.6 ML AMPUL NASAL SCH (10:51)
[2023-11-04] MEDS ORDERED: DiphenhydrAMINE HCL 50 MG/ML VIAL ONE (13:11)
[2023-11-04] MEDS ORDERED: LORazepam 2 MG/ML VIAL ONE (13:11)
[2023-11-04] MEDS ORDERED: HALOPERIDOL LACTATE 5 MG/ML VIAL ONE (13:11)
[2023-11-04] MEDS: HALOPERIDOL LACTATE 5 MG/ML VIAL IM ONE (13:18)
[2023-11-04] MEDS: LORazepam 2 MG/ML VIAL IM ONE (13:18)
[2023-11-04] MEDS: DiphenhydrAMINE HCL 50 MG/ML VIAL IM ONE (13:18)
[2023-11-04 20:03] VITALS: BP 117/81; PULSE 92; RESP 16; TEMP 98; O2SAT 98
[2023-11-04] MEDS: CHLORHEXIDINE GLUCONATE 2% TOWELETTE [2'S/6'S] TP SCH (21:05)
[2023-11-05 08:04] VITALS: BP 122/70; PULSE 66; RESP 18; TEMP 97.7; O2SAT 100
[2023-11-05 08:41] LABS: APPEARANCE,URINE CLEAR (CLEAR); BILIRUBIN,URINE NEGATIVE (NEGATIVE); COLOR,URINE LIGHT YELLOW (YELLOW); GLUCOSE, URINE (UA) NEGATIVE (NEGATIVE); KETONES,URINE NEGATIVE (NEGATIVE); LEUKOCYTE ESTERASE ,URINE NEGATIVE (NEGATIVE); NITRATE,URINE NEGATIVE (NEGATIVE); OCCULT BLOOD,URINE NEGATIVE (NEGATIVE); PROTEIN,URINE NEGATIVE (NEGATIVE); SPECIFIC GRAVITIY, URINE 1.013 (1.003-1.030); UROBILINOGEN,URINE <=1.0 mg/dL (<=1.0)
[2023-11-05 08:49] LABS: ALCOHOL, URINE DRUG SCREEN NEGATIVE (NEGATIVE); AMPHET/METH SCREEN,URINE POSITIVE (NEGATIVE); BARBITURATE SCREEN, URINE NEGATIVE (NEGATIVE); BENZODIAZEPINES SCREEN,URINE NEGATIVE (NEGATIVE); CANNABINOID SCREEN,URINE NEGATIVE (NEGATIVE); COCAINE SCREEN,URINE NEGATIVE (NEGATIVE); METHADONE SCREEN, URINE NEGATIVE (NEGATIVE); OPIATE SCREEN,URINE NEGATIVE (NEGATIVE); PHENCYCLIDINE SCREEN,URINE NEGATIVE (NEGATIVE)
[2023-11-05 20:10] VITALS: BP 109/80; PULSE 91; RESP 18; TEMP 97.9; O2SAT 100
[2023-11-06 08:26] VITALS: BP 131/87; PULSE 97; RESP 18; TEMP 97.5; O2SAT 99
[2023-11-06 23:07] VITALS: BP 121/59; PULSE 94; RESP 18; TEMP 98.2; O2SAT 99
[2023-11-07 08:35] VITALS: BP 117/85; PULSE 86; RESP 18; TEMP 96.5; O2SAT 98
[2023-11-07 20:54] VITALS: BP 122/80; PULSE 86; RESP 16; TEMP 97.6; O2SAT 99
[2023-11-08 08:30] VITALS: BP 114/74; PULSE 104; RESP 18; TEMP 97.6; O2SAT 99
[2023-11-08 20:41] VITALS: BP 117/75; PULSE 88; RESP 18; TEMP 97.8; O2SAT 98
[2023-11-08] MEDS: ZOLPIDEM TARTRATE 10 MG TABLET PO PRN (22:41)
[2023-11-09] MEDS: TUBERCULIN, PURIFIED PROTEIN DERIVATIVE 5 TU/0.1 ML SYRINGE ID ONE (06:43)
[2023-11-09 08:09] VITALS: BP 113/75; PULSE 71; RESP 17; TEMP 96.3; O2SAT 99
[2023-11-09 20:31] VITALS: BP 113/77; RESP 16; TEMP 96.7; O2SAT 83
[2023-11-10 12:39] VITALS: BP 147/93; PULSE 91; RESP 16; TEMP 97.6; O2SAT 97
[2023-11-11 00:43] VITALS: BP 137/87; PULSE 89; RESP 16; TEMP 97.5; O2SAT 98
[2023-11-11 08:06] VITALS: BP 104/66; PULSE 69; RESP 17; TEMP 97.7; O2SAT 98
[2023-11-11 20:10] VITALS: BP 132/76; PULSE 94; RESP 18; TEMP 98
[2023-11-12 09:08] VITALS: BP 132/86; PULSE 70; RESP 18; TEMP 97; O2SAT 99
[2023-11-12 20:25] VITALS: BP 138/76; PULSE 84; RESP 18; TEMP 97.4; O2SAT 96
[2023-11-13 08:13] VITALS: BP 124/74; PULSE 60; RESP 16; TEMP 98.6; O2SAT 96
[2023-11-13 21:15] VITALS: BP 124/98; PULSE 101; RESP 18; TEMP 98; O2SAT 98
[2023-11-14 10:10] VITALS: BP 123/64; PULSE 70; RESP 18; TEMP 97.6; O2SAT 99
[2023-11-14] MEDS ORDERED: OLAN5TAB52 PO (13:42)
== END 2023-11-14 13:28 | disposition home or self-care (01) | DRG 885 ==
LOC: B2X 11:16
PROVIDERS: ADMIT Psychiatry & Neurology Child & Adolescent Psychiatry; ATTEND Psychiatry & Neurology Child & Adolescent Psychiatry
PROC: GZ56ZZZ Individual Psychotherapy, Supportive (ICD-10-PCS; principal; 2023-11-02)
PROC: GZ52ZZZ Individual Psychotherapy, Cognitive (ICD-10-PCS; 2023-11-02)
DX: F20.0 Paranoid schizophrenia (principal); I10 Essential (primary) hypertension; E78.5 Hyperlipidemia, unspecified; E11.9 Type 2 diabetes mellitus without complications; F32.A Depression, unspecified; F41.9 Anxiety disorder, unspecified; Z91.148 Patient's other noncompliance with medication regimen for other reason; Z20.822 Contact with and (suspected) exposure to COVID-19
CPT/HCPCS: 80053; 80061; 80307; 81003; 83036; 84439; 84443; 85025; 87081; J1200; J1630; J2060